=== PATIENT | female | born 2000 | race American Indian/Alaskan Native ===

== ENCOUNTER 2022-06-17 09:33 | Inpatient (IN) | payer SELFPAY ==
[2022-06-17] MEDS ORDERED: LACTATED RINGERS 2,000 ML ONE (11:20)
[2022-06-17] MEDS ORDERED: OXYTOCIN DRIP 60,000 MILLIUNITS/1,000 ML BAG IV ONE (11:20)
[2022-06-17] MEDS ORDERED: MINERAL OIL 30 ML ORAL LIQD PO PRN (11:57)
[2022-06-17] MEDS ORDERED: fentaNYL 100 MCG/2 ML INJ IV PRN (11:57)
[2022-06-17] MEDS ORDERED: ACETAMINOPHEN 325 MG TAB PO PRN ×2 (11:57→19:17)
[2022-06-17] MEDS ORDERED: METHYLERGONOVINE MALEATE 0.2 MG/ML VIAL IM PRN (11:57)
[2022-06-17] MEDS ORDERED: LIDOCAINE (2%) 20 MG/1 ML VIAL 20 ML MDV INFILTRATI ONE (11:57)
[2022-06-17] MEDS ORDERED: ePHEDrine SULFATE 50 MG/1 ML INJ IV PRN (11:57)
[2022-06-17] MEDS ORDERED: TERBUTALINE 1 MG/1 ML INJ SUB-Q PRN (11:57)
[2022-06-17] MEDS ORDERED: CARBOPROST TROMETHAMINE 250 MCG/1 ML INJ IM PRN (11:57)
[2022-06-17] MEDS ORDERED: OXYTOCIN 10 UNIT/1 ML INJ IM PRN (11:57)
[2022-06-17] MEDS ORDERED: AMPICILLIN/NS 2 GM/100 ML 2 GM/100 ML BAG IV ONE (11:57)
[2022-06-17] MEDS ORDERED: LOPERAMIDE 2 MG CAP PO PRN (11:57)
[2022-06-17] MEDS ORDERED: miSOPROStol 200 MCG TAB PR PRN (11:57)
[2022-06-17] MEDS ORDERED: BUTORPHANOL 2 MG/1 ML INJ IV PRN ×2 (11:57)
[2022-06-17] MEDS ORDERED: OXYTOCIN DRIP 30 UNITS/500 ML BAG IV SCH ×2 (12:00)
[2022-06-17] MEDS: LACTATED RINGERS 1,000 ML IV SCH (12:05)
[2022-06-17] MEDS: AMPICILLIN/NS 1 GM/50 ML 1 GM/50 ML BAG IV SCH ×2 (12:22→16:25)
[2022-06-17 12:39] LABS: Basophils % (Auto) 0.3 % (0.0-1.8); Eosinophils % (Auto) 0.2 % (0.0-4.3); Hematocrit 29.3 % (30.3-42.9); Hemoglobin 10.1 gm/dl (10.1-14.3); Lymphocytes # (Auto) 2.1 K/mm3 (1.2-5.4); Lymphocytes % (Auto) 22.4 % (13.4-35.0); Mean Corpuscular HGB Conc 35 % (30-34); Mean Corpuscular Volume 97 fl (79-97); Monocytes # (Auto) 0.7 K/mm3 (0.0-0.8); Monocytes % (Auto) 7.4 % (0.0-7.3); Platelet Count 155 K/mm3 (140-440); Red Blood Count 3.01 M/mm3 (3.65-5.03); Red Cell Distribution Width 12.5 % (13.2-15.2)
[2022-06-17 13:10] LABS: Bacteria,Urine 1+ /HPF (Negative); Hyaline Casts,Urine 1 /LPF; Mucus,Urine FEW /HPF
[2022-06-17 13:13] LABS: Bilirubin,Urine Negative (Negative); Blood,Urine Trace (Negative); Color,Urine Straw (Yellow); Protein,Urine <15 mg/dL mg/dL (Negative)
[2022-06-17 13:13] LABS: Amphetamine Screen,Urine Negative; Benzodiazepines Screen,Urine Negative; Cannabinoid Screen,Urine Negative; Cocaine Screen,Urine Negative; Methadone Screen,Urine Negative; Opiate Screen,Urine Negative
[2022-06-17 13:14] LABS: Urobilinogen,Urine < 2.0 mg/dL (<2.0)
--- NOTE | 2022-06-17 13:17 | History and Physical Report ---
History of Present Illness Date of examination: 06/17/22 Date of admission: 06/17/22 11:57 Chief complaint: Painful contractions. History of present illness: Primigravida. care in the [facility]. DEACON 06/20/22. Past History Past Medical History: asthma, deep vein thrombosis - Obstetrical History Expected Date of Delivery: 06/20/22 Actual Gestation: 39 Week(s) 4 Day(s) : 1 Medications and Allergies Allergies Allergy/AdvReac Type Severity Reaction Status Date / Time No Known Allergies Allergy Verified 06/17/22 12:15 Home Medications Medication Instructions Recorded Confirmed Last Taken Type Enoxaparin [Lovenox] 60 mg SQ Q12HR 06/17/22 06/17/22 1 Month Ago History ~05/18/22 Vit No.179/Iron/Folic 1 each PO DAILY 06/17/22 06/17/22 1 Month Ago History [ Tablet] ~05/18/22 Active Meds: Active Medications Acetaminophen (Acetaminophen 325 Mg Tab) 650 mg PO Q4H PRN PRN Reason: Pain, Mild (1-3) Butorphanol Tartrate (Butorphanol 2 Mg/1 Ml Inj) 1 mg IV Q2H PRN PRN Reason: Pain, Moderate(4-6) LABOR PAIN Butorphanol Tartrate (Butorphanol 2 Mg/1 Ml Inj) 2 mg IV Q1HR PRN PRN Reason: Labor Pain Last Admin: 06/17/22 12:33 Dose: 2 mg Carboprost Tromethamine (Carboprost Tromethamine 250 Mcg/1 Ml Inj) 250 mcg IM ONCE PRN PRN Reason: Uterine Bleeding Ephedrine Sulfate (Ephedrine Sulfate 50 Mg/1 Ml Inj) 10 mg IV Q2M PRN PRN Reason: Hypotension Fentanyl (Fentanyl 100 Mcg/2 Ml Inj) 100 mcg IV Q2H PRN PRN Reason: Pain,Severe (7-10) LABOR PAIN Oxytocin/Sodium Chloride (Pitocin/Ns 30 Unit/500ml) 30 units in 500 mls @ 2 mls/hr IV TITR KATHY; Protocol Lactated Ringer's (Lactated Ringers) 1,000 mls @ 125 mls/hr IV DIRECT KATHY Last Admin: 06/17/22 12:05 Dose: 125 mls/hr Oxytocin/Sodium Chloride (Pitocin/Ns 30 Unit/500ml) 30 units in 500 mls @ 40 mls/hr IV TITR KATHY; Protocol Ampicillin Sodium (Ampicillin/Ns 1 Gm/50 Ml) 1 gm in 50 mls @ 100 mls/hr IV Q4H KATHY; Protocol Last Admin: 06/17/22 12:22 Dose: Not Given Loperamide HCl (Loperamide 2 Mg Cap) 2 mg PO ONCE PRN PRN Reason: give with Hemabate Methylergonovine Maleate (Methylergonovine Maleate 0.2 Mg/Ml Vial) 0.2 mg IM ONCE PRN PRN Reason: Uterine Bleeding Mineral Oil (Mineral Oil 30 Ml Oral Liqd) 30 ml PO QHS PRN PRN Reason: Constipation Misoprostol (Misoprostol 200 Mcg Tab) 800 mcg WV ONCE PRN PRN Reason: Uterine Bleeding Oxytocin (Oxytocin 10 Unit/1 Ml Inj) 10 unit IM ONCE PRN PRN Reason: Uterine Bleeding Terbutaline Sulfate (Terbutaline 1 Mg/1 Ml Inj) 0.25 mg SUB-Q ONCE PRN PRN Reason: Hyperstimulation/Hypertonicity Review of Systems All systems: negative Genitourinary: contractions - Vital Signs Vital signs: Vital Signs Temp Pulse Resp BP Pulse Ox 98.6 F 81 18 126/82 99 06/17/22 09:48 06/17/22 09:48 06/17/22 09:48 06/17/22 09:48 06/17/22 09:48 Temp Pulse Resp BP Pulse Ox 98.5 F 82 18 144/92 99 06/17/22 12:50 06/17/22 13:11 06/17/22 12:50 06/17/22 11:28 06/17/22 13:11 - Physical Exam Breasts: Positive: deferred Lungs: Positive: Normal air movement Abdomen: Positive: normal appearance, distention Genitourinary (Female): Positive: normal external genitalia Vulva: both: normal Vagina: Positive: normal moisture Cervix: Negative: lesion, discharge Uterus: Positive: enlarged, normal contour Extremities: Positive: normal Deep Tendon Reflex Grade: Normal +2 - Obstetrical FHR: category 2 Cervical Dilatation: 7.5 (ARM done, IUPC, Scalp electrode placed.) Cervical Effacement Percentage: 100 station: 0+1 Results Result Diagrams: 06/17/22 11:57 Abnormal lab results 06/17/22 06/17/22 Range/Units 11:57 12:10 RBC 3.01 L (3.65-5.03) M/mm3 Hct 29.3 L (30.3-42.9) % MCH 34 H (28-32) pg MCHC 35 H (30-34) % RDW 12.5 L (13.2-15.2) % [place] % (Auto) 7.4 H (0.0-7.3) % U Epithel Cells (Auto) 15.0 H (0-13.0) /HPF All other labs normal. Assessment and Plan - Patient Problems (1) with 39 completed weeks gestation Current Visit: Yes Status: Acute (2) History of DVT (deep vein thrombosis) Current Visit: Yes Status: Acute Plan to address problem: For prophylaxis 6 hrs post (3) Active labor Current Visit: Yes Status: Acute Plan to address problem: Vag delivery possible.
[2022-06-17] MEDS ORDERED: SODIUM CHLORIDE 0.9% 500 ML 500 ML IV ONE ×2 (17:20→20:43)
[2022-06-17] MEDS ORDERED: SODIUM CHLORIDE 0.9% 1000 ML 0 ML ONE (17:36)
[2022-06-17 18:18] LABS: Albumin 2.2 g/dL (3.9-5); Blood Urea Nitrogen 7 mg/dL (7-17); Hemolysis Index 4
[2022-06-17 18:21] LABS: Alanine Aminotransferase < 5 units/L (7-56); BUN/Creatinine Ratio 10
[2022-06-17 18:32] LABS: INR 1.23 (0.87-1.13)
[2022-06-17 18:33] LABS: Partial Thromboplastin Time 28.3 Sec. (24.2-36.6)
--- NOTE | 2022-06-17 19:16 | Procedure Note ---
OB Delivery Note - Delivery Date of Delivery: 06/17/22 Surgeon: LENARD VARGAS Estimated blood loss: other (1500) - Vaginal Delivery presentation: vertex Delivery position: OA Intrapartum events: hemorrhage Delivery induction: none Delivery augmentation: rupture of membranes, pitocin Delivery monitor: external FHT, external uterine, internal FHT, internal uterine Route of delivery: Delivery placenta: spontaneous Delivery cord: 3 umbilical vessels Episiotomy: none Delivery laceration: 2nd degree (midline) Delivery repair: vicryl Anesthesia: intravenous - Infant A at 1 minute: 8 at 5 minutes: 9 Infant Gender: Female
[2022-06-17] MEDS ORDERED: PROMETHAZINE 25 MG RECT SUPP PR PRN (19:17)
[2022-06-17] MEDS ORDERED: MAGNESIUM HYDROXIDE (MOM) ORAL LIQD UDC PO PRN (19:17)
[2022-06-17] MEDS ORDERED: PROMETHAZINE 25 MG TAB PO PRN (19:17)
[2022-06-17] MEDS ORDERED: ONDANSETRON 4 MG/2 ML INJ IV PRN (19:17)
[2022-06-17] MEDS ORDERED: LANOLIN/ZINC/DIMETHICONE (LANSINOH) 7 GM TP PRN (19:17)
[2022-06-17] MEDS ORDERED: diphenhydrAMINE 25 MG CAP PO PRN (19:17)
[2022-06-17] MEDS ORDERED: KETOROLAC 30 MG/1 ML INJ IV PRN (19:17)
[2022-06-17 19:27] LABS: Basophils % (Auto) 0.2 % (0.0-1.8); Lymphocytes # (Auto) 1.3 K/mm3 (1.2-5.4); Mean Corpuscular HGB Conc 33 % (30-34); Mean Corpuscular Volume 101 fl (79-97); Monocytes # (Auto) 0.3 K/mm3 (0.0-0.8); Monocytes % (Auto) 3.8 % (0.0-7.3); Platelet Count 143 K/mm3 (140-440); Red Blood Count 1.73 M/mm3 (3.65-5.03); Red Cell Distribution Width 12.6 % (13.2-15.2)
[2022-06-17 19:48] LABS: Hemoglobin 5.9 gm/dl (10.1-14.3)
[2022-06-17 19:52] LABS: Hematocrit 17.5 % (30.3-42.9)
[2022-06-17] MEDS ORDERED: MORPHINE 2 MG/1 ML INJ ONE (20:08)
[2022-06-17] MEDS ORDERED: VERAPAMIL 5 MG/2 ML INJ ONE (21:51)
[2022-06-17] MEDS ORDERED: LIDOCAINE 2%/EPINEPHRINE 1:200,000 VIAL (20 ML) INFILTRATI ONE (21:51)
[2022-06-17] MEDS ORDERED: SODIUM CHLORIDE 0.9% 1000 ML 2,000 ML ONE (21:51)
[2022-06-17] MEDS ORDERED: NITROGLYCERIN SYRINGE 3 ML ONE (21:52)
[2022-06-17] MEDS ORDERED: ceFAZolin/Water 2 GM/20 ML 2 GM/20 ML SYRINGE IV ONE (21:52)
[2022-06-17] MEDS ORDERED: SODIUM CHLORIDE 0.9% 1000 ML 1,000 ML ONE (21:54)
[2022-06-17] MEDS ORDERED: PHENYLEPHRINE/NS 1,000 MCG/10 ML SYRINGE (OR USE) IV ONE (22:03)
[2022-06-17] MEDS ORDERED: fentaNYL 100 MCG/2 ML INJ ONE (22:04)
[2022-06-17] MEDS ORDERED: MIDAZOLAM 2 MG/2 ML INJ ONE (22:04)
[2022-06-17] MEDS ORDERED: KETAMINE/STERILE WATER 50 MG/ML SYRINGE ONE (22:04)
[2022-06-17] MEDS ORDERED: ePHEDrine SULFATE 50 MG/1 ML INJ ONE (22:04)
--- NOTE | 2022-06-17 22:41 | Event Note ---
Date: 06/17/22 3-4 hours post and after the first unit of prbc was transfused, patient started bleeding actively again. help was summoned from the [facility], available L&D staff, ICU, interventional radiology, composing room supervisor Reexamination of the lower genital tract was done. Medina's cath was in place. manual pressure on the uterus was on. hemabate was was given. Pitocin was running. Massive transfusion protocol was activated. Gil's balloon was placed Dr. Callahan arrived and patient was moved for interventional radiology treatment.
[2022-06-17 22:59] LABS: Hematocrit 42.5 % (30.3-42.9); Hemoglobin 14.3 gm/dl (10.1-14.3); Mean Corpuscular HGB Conc 34 % (30-34); Mean Corpuscular Volume 88 fl (79-97); Red Blood Count 4.84 M/mm3 (3.65-5.03); Red Cell Distribution Width 16.4 % (13.2-15.2)
[2022-06-17 23:00] LABS: Platelet Count 64 K/mm3 (140-440)
--- NOTE | 2022-06-17 23:00 | Post Operative Note ---
Date of procedure: 06/17/22 Pre-op diagnosis: Uterine artery bleeding Post-op diagnosis: same Procedure: 1. Ultrasound guided access of the left radial artery 2. Selection of the abdominal aorta with angiography 3. Selection of the left internal iliac artery with angiography 4. Selection of the left uterine artery with angiography 5. Gelfoam embolization of the left uterine artery 6. Gelfoam embolization of the left internal pudendal artery 7. Selection of the right internal iliac artery with angiography 8. Selection of the right uterine artery with angiography 9. Gelfoam embolization of the right uterine artery with angiography 10. Selection of the left anterior division of the left internal iliac artery. 11. Selection of the left internal pudendal artery 12. Gelfoam embolization of the left internal pudendal artery 13. Gelfoam embolization of the left anterior division of the left internal iliac artery Anesthesia: MAC Surgeon: FRANCE RITTER Estimated blood loss: minimal Condition: stable Disposition: ICU
--- NOTE | 2022-06-17 23:03 | Consultation ---
History of Present Illness - Reason for Consult Consult date: 06/17/22 Uterine artery bleeding Requesting physician: LENARD VARGAS - History of Present Illness 22-year-old female prima gravid with care in the [facility] with history of asthma and DVT with prior Lovenox administration last taken 1 month ago per medical record who had a vaginal delivery with 1500 mL of blood loss after vaginal delivery who was stable for multiple hours and subsequently had 500 to 1000 mL of blood loss with fundal massage performed and the Bakiri balloon placed. Vascular consulted and patient was brought to angiography for uterine artery embolization and angiography. Risk, benefits, and alternatives discussed with the patient's aunt. The patient was brought emergently to the [facility]. Past History Past Medical History: other (Asthma, DVT) Past Surgical History: Other (Vaginal ) Social history: no significant social history Family history: no significant family history Medications and Allergies Allergies Allergy/AdvReac Type Severity Reaction Status Date / Time No Known Allergies Allergy Verified 06/17/22 12:15 Home Medications Medication Instructions Recorded Confirmed Last Taken Type Enoxaparin [Lovenox] 60 mg SQ Q12HR 06/17/22 06/17/22 1 Month Ago History ~05/18/22 Vit No.179/Iron/Folic 1 each PO DAILY 06/17/22 06/17/22 1 Month Ago History [ Tablet] ~05/18/22 Active Meds: Active Medications Acetaminophen (Acetaminophen 325 Mg Tab) 650 mg PO Q4H PRN PRN Reason: Pain MILD(1-3)/Fever >100.5/SMITH Hydrocodone Bitart/Acetaminophen (Hydrocodone/Acetaminophen 5-325 Mg Tab) 2 each PO Q6H PRN PRN Reason: Pain, Moderate (4-6) Bisacodyl (Bisacodyl 10 Mg Rect Supp) 10 mg OR BID PRN PRN Reason: Constipation Butorphanol Tartrate (Butorphanol 2 Mg/1 Ml Inj) 1 mg IV Q2H PRN PRN Reason: Pain, Moderate(4-6) LABOR PAIN Butorphanol Tartrate (Butorphanol 2 Mg/1 Ml Inj) 2 mg IV Q1HR PRN PRN Reason: Labor Pain Last Admin: 06/17/22 12:33 Dose: 2 mg Carboprost Tromethamine (Carboprost Tromethamine 250 Mcg/1 Ml Inj) 250 mcg IM ONCE PRN PRN Reason: Uterine Bleeding Diphenhydramine HCl (Diphenhydramine 25 Mg Cap) 25 mg PO Q6H PRN PRN Reason: Itching Ephedrine Sulfate (Ephedrine Sulfate 50 Mg/1 Ml Inj) 10 mg IV Q2M PRN PRN Reason: Hypotension Last Admin: 06/17/22 17:22 Dose: 10 mg Fentanyl (Fentanyl 100 Mcg/2 Ml Inj) 100 mcg IV Q2H PRN PRN Reason: Pain,Severe (7-10) LABOR PAIN Last Admin: 06/17/22 15:05 Dose: 100 mcg Oxytocin/Sodium Chloride (Pitocin/Ns 30 Unit/500ml) 30 units in 500 mls @ 2 mls/hr IV TITR KATHY; Protocol Lactated Ringer's (Lactated Ringers) 1,000 mls @ 125 mls/hr IV DIRECT KATHY Last Admin: 06/17/22 12:05 Dose: 125 mls/hr Oxytocin/Sodium Chloride (Pitocin/Ns 30 Unit/500ml) 30 units in 500 mls @ 40 mls/hr IV TITR KATHY; Protocol Ampicillin Sodium (Ampicillin/Ns 1 Gm/50 Ml) 1 gm in 50 mls @ 100 mls/hr IV Q4H KATHY; Protocol Last Admin: 06/17/22 16:25 Dose: 100 mls/hr Ketorolac Tromethamine (Ketorolac 30 Mg/1 Ml Inj) 30 mg IV Q6H PRN PRN Reason: Pain, Moderate (4-6) Stop: 06/22/22 19:16 Loperamide HCl (Loperamide 2 Mg Cap) 2 mg PO ONCE PRN PRN Reason: give with Hemabate Magnesium Hydroxide (Magnesium Hydroxide (Mom) Oral Liqd Udc) 30 ml PO HS PRN PRN Reason: Constipation Mineral Oil (Mineral Oil 30 Ml Oral Liqd) 30 ml PO QHS PRN PRN Reason: Constipation Multi-Ingredient Ointment (Lanolin/Zinc/Dimethicone (Lansinoh) 7 Gm) 1 applic TP PRN PRN PRN Reason: Sore Nipples Ondansetron HCl (Ondansetron 4 Mg/2 Ml Inj) 4 mg IV Q8H PRN PRN Reason: Nausea And Vomiting Oxytocin (Oxytocin 10 Unit/1 Ml Inj) 10 unit IM ONCE PRN PRN Reason: Uterine Bleeding Promethazine HCl (Promethazine 25 Mg Rect Supp) 25 mg OR Q6H PRN PRN Reason: Nausea And Vomiting Promethazine HCl (Promethazine 25 Mg Tab) 25 mg PO Q6H PRN PRN Reason: Nausea And Vomiting Sodium Chloride (Sodium Chloride 0.9% 10 Ml Flush Syringe) 10 ml IV PRN NR Stop: 06/27/22 23:59 Terbutaline Sulfate (Terbutaline 1 Mg/1 Ml Inj) 0.25 mg SUB-Q ONCE PRN PRN Reason: Hyperstimulation/Hypertonicity Witch Martha/Glycerin (Witch Martha/ Glycerin Pad) 1 each TP PRN PRN PRN Reason: Hemorrhoid/cleansing/soothing Review of Systems All systems: negative (see HPI) Exam - Constitutional Vitals: Temp Pulse Resp BP Pulse Ox 99.5 F 105 H 18 145/67 100 06/17/22 20:36 06/17/22 21:37 06/17/22 20:36 06/17/22 21:25 06/17/22 21:37 General appearance: Present: mild distress (Actively receiving blood) - EENT Eyes: Present: EOM intact ENT: hearing intact - Respiratory Respiratory effort: normal - Extremities Extremities: normal temperature, normal color - Abdominal Female genitourinary: Present: other (Bacteria balloon in place,) - Psychiatric Psychiatric: appropriate mood/affect, cooperative Results - Labs CBC & Chem 7: 06/17/22 Unknown 06/17/22 17:40 Labs: Abnormal lab results 06/17/22 06/17/22 06/17/22 Range/Units 11:40 11:57 12:10 RBC 3.01 L (3.65-5.03) M/mm3 Hgb (10.1-14.3) gm/dl Hct 29.3 L (30.3-42.9) % MCV (79-97) fl MCH 34 H (28-32) pg MCHC 35 H (30-34) % RDW 12.5 L (13.2-15.2) % [place] % (Auto) 7.4 H (0.0-7.3) % Seg Neutrophils % (40.0-70.0) % PT (12.2-14.9) Sec. INR (0.87-1.13) Fibrinogen (211-480) mg/dl D-Dimer (0-234) ng/mlDDU Sodium (137-145) mmol/L Potassium (3.6-5.0) mmol/L Carbon Dioxide (22-30) mmol/L Glucose (65-100) mg/dL Calcium (8.4-10.2) mg/dL ALT (7-56) units/L Total Protein (6.3-8.2) g/dL Albumin (3.9-5) g/dL Urine pH 8.0 H (5.0-7.0) Urine WBC (Auto) 14.0 H (0.0-6.0) /HPF U Epithel Cells (Auto) 15.0 H (0-13.0) /HPF Crossmatch See Detail 06/17/22 06/17/22 06/17/22 Range/Units 17:40 17:40 Unknown RBC 1.73 L (3.65-5.03) M/mm3 Hgb 5.9 L* D (10.1-14.3) gm/dl Hct 17.5 L* D (30.3-42.9) % MCV 101 H (79-97) fl MCH 34 H (28-32) pg MCHC (30-34) % RDW 12.6 L (13.2-15.2) % [place] % (Auto) (0.0-7.3) % Seg Neutrophils % 82.0 H (40.0-70.0) % PT 17.0 H (12.2-14.9) Sec. INR 1.23 H (0.87-1.13) Fibrinogen 150 L (211-480) mg/dl D-Dimer 7013.41 H (0-234) ng/mlDDU Sodium 133 L (137-145) mmol/L Potassium 3.3 L (3.6-5.0) mmol/L Carbon Dioxide 14 L (22-30) mmol/L Glucose 120 H (65-100) mg/dL Calcium 7.0 L (8.4-10.2) mg/dL ALT < 5 L (7-56) units/L Total Protein 4.0 L (6.3-8.2) g/dL Albumin 2.2 L (3.9-5) g/dL Urine pH (5.0-7.0) Urine WBC (Auto) (0.0-6.0) /HPF U Epithel Cells (Auto) (0-13.0) /HPF Crossmatch Assessment and Plan 22-year-old female with hemorrhage after vaginal delivery. Activating massive transfusion protocol. Bacterial balloon in place. Patient will be brought emergently to the [facility] for further evaluation with angiography and probable embolization of the bilateral uterine arteries. Risk, benefits, and alternatives discussed with the patient and patient's aunt at bedside. Alternative is hysterectomy. Patient and aunt understands and agrees with plan.
[2022-06-17 23:07] LABS: INR 1.24 (0.87-1.13)
[2022-06-17 23:08] LABS: Partial Thromboplastin Time 28.4 Sec. (24.2-36.6)
--- NOTE | 2022-06-17 23:11 | Operative Report ---
Operative Report Operative Report: EXAM: 1. Ultrasound guided access of the left radial artery 2. Selection of the abdominal aorta with angiography 3. Selection of the left internal iliac artery with angiography 4. Selection of the left internal pudendal artery with angiography 5. Gelfoam embolization of the left internal pudendal artery 6. Selection of the left uterine artery with angiography 7. Gelfoam embolization of the left uterine artery 8. Selection of the right internal iliac artery with angiography 9. Selection of the right uterine artery with angiography 10. Gelfoam embolization of the right uterine artery with angiography 11. Selection of the left anterior division of the left internal iliac artery. 12. Selection of the left internal pudendal artery 13. Gelfoam embolization of the left internal pudendal artery 14. Gelfoam embolization of the left anterior division of the left internal iliac artery DATE: 06/17/2022 MOTHERS HELPER: FRANCE RITTER MD INDICATION: hemorrhage status vaginal delivery with massive transfusion protocol activated and Bakiri balloon placement. MEDICATIONS: Please see nursing report for full details. DEVICES: Gelfoam slurry CONTRAST: Please see Courtesy Driver report for full details PROCEDURE: The risks, benefits, and alternatives were discussed with the patient; written informed consent was obtained. The left wrist was prepped and draped in sterile fashion. Ultrasound was used to evaluate the left radial artery which was patent. The left radial artery was then accessed with a 21-gauge micropuncture needle and a 0.018 inch wire was passed into the radial artery. Needle was exchanged for a 4/5 glide sheath slender and a radial cocktail was administered without heparin. 0.035 inch Bentson wire and angled Glidecath were then passed into the descending thoracic aorta and abdominal aorta. The left internal iliac artery was then selected and digital subtraction angiography was performed demonstrating patency of the left internal iliac artery with a left uterine artery. There is extravasation from a branch of the left internal pudendal artery adjacent to the cervix or lower uterine segment, but above the pubic symphysis and therefore intra-abdominal. Given history, suspect arterial trauma during passage during vaginal delivery. The left internal pudendal artery was selected and digital subtraction angiography was performed demonstrating extravasation from the distal vessels. I considered exchanging the 150 cm glidecath for a 125 cm MPA catheter and using a microcatheter to perform more selective embolization of the internal pudendal artery, but in the interest of stopping the extravasation as soon as possible to prevent exanguination I declined to perform this exchange. From a proximal position in the internal pudendal artery, I performed Gelfoam embolization until there was cessation of flow into the distal internal pudendal artery. Digital subtraction angiography was performed confirming cessation of extravasation and flow within this portion of the vessel. At this point, I had the Bakiri balloon deflated in order to optimize embolization. The left uterine artery was then selected and digital subtraction angiography was performed confirming position. Gelfoam slurry was then passed into the catheter and used to perform embolization until there was stasis of flow in the left uterine artery. Catheter was retracted into the left internal iliac artery and digital subtraction angiography was performed confirming stasis of flow in the left uterine artery and distal branches of the left internal pudendal artery. The right internal iliac artery was selected and digital subtraction angiography was performed demonstrating a normal branching pattern with a right uterine artery. No extravasation or pseudoaneurysm was visualized at this time. The right uterine artery was then selected and digital subtraction angiography was performed confirming position in this vessel. Gelfoam slurry was then passed into the catheter and used to perform embolization until there was stasis of flow in the uterine artery. The right internal iliac artery was selected and digital subtraction angiography was performed demonstrating stasis of flow in the right uterine artery. I then reselected the left internal iliac artery as I wanted to ensure hemostasis from the left internal pudendal artery. Digital subtraction angiography demonstrated further extravasation from the left distal internal pudendal artery. I then selected the left internal pudendal artery and perform Gelfoam embolization again. I then continued embolization in order to embolize the entire left internal pudendal artery and a portion of the anterior division of the internal iliac artery. Digital subtraction angiography was performed demonstrating no further extravasation. There is no pseudoaneurysm. There is now stasis of flow in the anterior division of the left internal iliac artery including the internal pudendal artery. I then allowed 10 minutes to transpire and performed intermittent angiography during that period of time to ensure no reopening of the internal pudendal artery. During this time, there was no reopening of the internal pudendal artery and there was no extravasation or pseudoaneurysm. The anterior division of the left internal iliac artery was occluded including the internal pudendal artery. At this time, all wires, and catheters were removed. The sheath was aspirated and blood was obtained. Nitroglycerin was injected into sheath and subsequently the radial artery. Afterwards, the sheath was removed and TR band was applied to the left radial access site. The patient tolerated the procedure well. No immediate postprocedural complications. FINDINGS: Please see procedure note above. IMPRESSION: Successful embolization of the bilateral uterine arteries for hemorrhage. Successful embolization of the left internal pudendal artery and anterior division of the left internal iliac artery.
[2022-06-17 23:21] LABS: Alanine Aminotransferase 6 units/L (7-56); Albumin 2.4 g/dL (3.9-5); BUN/Creatinine Ratio 10; Blood Urea Nitrogen 9 mg/dL (7-17); Calcium 6.2 mg/dL (8.4-10.2); Hemolysis Index 12
--- NOTE | 2022-06-17 23:23 | Event Note ---
Date: 06/17/22 Status post Gelfoam embolization of the bilateral uterine arteries and left internal pudendal artery and anterior division of the internal iliac artery. The patient had extravasation from the left lower uterine segment from vaginal/cervical branches, likely from vaginal delivery. Recommend serial H&H, and monitoring and treating hemoglobin. Recommend against any prophylactic anticoagulation at this time. Recommend SCDs instead.
--- NOTE | 2022-06-17 23:46 | Anesthesia Day of Surgery ---
Anesthesia Day of Surgery - Day of Surgery Patient Examined: Yes Patient H&P Reviewed: Yes Patient is NPO: Yes
--- NOTE | 2022-06-17 23:48 | Anesthesia Consultation ---
Anesthesia Consult and Med Hx Date of service: 06/17/22 - Airway Anesthetic Teeth Evaluation: Poor ROM Head & Neck: Adequate Mental/Hyoid Distance: Adequate Mallampati Class: Class II Intubation Access Assessment: Probably Good - Pulmonary Exam CTA: Yes - Cardiac Exam Cardiac Exam: RRR - Pre-Operative Health Status ASA Pre-Surgery Classification: ASA3, Emergency Proposed Anesthetic Plan: MAC - Pre-Anesthesia Comment Pre-Anesthesia Comments: hx of DVT's stop blood thinners - Pulmonary Hx Smoking: No Hx Asthma: Yes (CHILDHOOD) - Cardiovascular System Hx Hypertension: No - Central Nervous System Hx Seizures: No Hx Psychiatric Problems: No - Endocrine Hx Renal Disease: No Hx Hypothyroidism: No Hx Hyperthyroidism: No - Hematic Hx Anemia: Yes Hx Sickle Cell Disease: No - Other Systems Hx Alcohol Use: Yes Hx Substance Use: No Hx Obesity: No
[2022-06-18] MEDS ORDERED: HYDROmorphone 1 MG/1 ML INJ IV PRN (00:25)
[2022-06-18] MEDS ORDERED: ONDANSETRON 4 MG/2 ML INJ IV PRN ×2 (00:28→00:44)
[2022-06-18] MEDS: LACTATED RINGERS 1,000 ML IV SCH (01:11)
[2022-06-18 01:17] LABS: Band Neutrophils # (Manual) 0.8 K/mm3; Basophils % (Manual) 0 % (0.0-1.8); Eosinophils % (Manual) 0 % (0.0-4.3); Platelet Estimate Appears Decreased; RBC Morphology Normal; Total Cells Counted 100
[2022-06-18] MEDS ORDERED: SODIUM CHLORIDE 0.9% 1000 ML 1,000 ML IV SCH (04:00)
[2022-06-18 06:20] LABS: Basophils % (Auto) 0.2 % (0.0-1.8); Hematocrit 34.4 % (30.3-42.9); Hemoglobin 11.3 gm/dl (10.1-14.3); Lymphocytes # (Auto) 1.4 K/mm3 (1.2-5.4); Lymphocytes % (Auto) 9.8 % (13.4-35.0); Mean Corpuscular HGB Conc 33 % (30-34); Mean Corpuscular Volume 88 fl (79-97); Monocytes # (Auto) 0.9 K/mm3 (0.0-0.8); Monocytes % (Auto) 5.9 % (0.0-7.3); Red Blood Count 3.91 M/mm3 (3.65-5.03); Red Cell Distribution Width 15.9 % (13.2-15.2)
[2022-06-18 06:21] LABS: Platelet Count 66 K/mm3 (140-440)
[2022-06-18] MEDS: HYDROcodone/ACETAMINOPHEN 5-325 MG TAB PO PRN ×2 (06:24→15:45)
[2022-06-18 06:35] LABS: Alanine Aminotransferase 8 units/L (7-56); Albumin 2.8 g/dL (3.9-5); BUN/Creatinine Ratio 8; Blood Urea Nitrogen 8 mg/dL (7-17); Hemolysis Index 8
[2022-06-18 06:36] LABS: INR 1.04 (0.87-1.13)
--- NOTE | 2022-06-18 06:39 | Consultation ---
History of Present Illness - Reason for Consult Consult date: 06/17/22 Medical management Requesting physician: LENARD DRUMMOND - History of Present Illness Consulted for history of hemorrhage. Patient was transfused about 4 units of packed red blood cells. Patient apparently lost 2020 normal blood as per [employer]. Interventional radiology was advised toto Dr Drummond for possible uterine artery embolization. Coags were obtained. [employer] was informed. Patient was transfused. Units to 10 units of packed red blood cells Test and platelets as necessary. Slightly hypertensive. Tachycardic at 120/min. No diaphoresis. No chest pain. Patient was transferred from L[facility] to [facility] for angiography and embolization. And then transferred back to ICU . Transfer was coordinated by hospitalist service. No significant past medical history. Past History Past Medical History: No medical history, other (Asthma, DVT) Past Surgical History: Other (Vaginal ) Social history: no significant social history Family history: no significant family history Medications and Allergies Allergies Allergy/AdvReac Type Severity Reaction Status Date / Time No Known Allergies Allergy Verified 06/17/22 12:15 Home Medications Medication Instructions Recorded Confirmed Last Taken Type Enoxaparin [Lovenox] 60 mg SQ Q12HR 06/17/22 06/17/22 1 Month Ago History ~05/18/22 Vit No.179/Iron/Folic 1 each PO DAILY 06/17/22 06/17/22 1 Month Ago History [ Tablet] ~05/18/22 Active Meds: Active Medications Acetaminophen (Acetaminophen 325 Mg Tab) 650 mg PO Q4H PRN PRN Reason: Pain MILD(1-3)/Fever >100.5/SMITH Hydrocodone Bitart/Acetaminophen (Hydrocodone/Acetaminophen 5-325 Mg Tab) 2 each PO Q6H PRN PRN Reason: Pain, Moderate (4-6) Last Admin: 06/18/22 06:24 Dose: 2 each Bisacodyl (Bisacodyl 10 Mg Rect Supp) 10 mg ME BID PRN PRN Reason: Constipation Carboprost Tromethamine (Carboprost Tromethamine 250 Mcg/1 Ml Inj) 250 mcg IM ONCE PRN PRN Reason: Uterine Bleeding Diphenhydramine HCl (Diphenhydramine 25 Mg Cap) 25 mg PO Q6H PRN PRN Reason: Itching Ephedrine Sulfate (Ephedrine Sulfate 50 Mg/1 Ml Inj) 10 mg IV Q2M PRN PRN Reason: Hypotension Last Admin: 06/17/22 17:22 Dose: 10 mg Hydromorphone HCl (Hydromorphone 1 Mg/1 Ml Inj) 0.5 mg IV Q2H PRN PRN Reason: Pain , Severe (7-10) Last Admin: 06/18/22 01:02 Dose: 0.5 mg Oxytocin/Sodium Chloride (Pitocin/Ns 30 Unit/500ml) 30 units in 500 mls @ 2 mls/hr IV TITR KATHY; Protocol Lactated Ringer's (Lactated Ringers) 1,000 mls @ 125 mls/hr IV DIRECT KATHY Last Admin: 06/18/22 01:11 Dose: 125 mls/hr Oxytocin/Sodium Chloride (Pitocin/Ns 30 Unit/500ml) 30 units in 500 mls @ 40 mls/hr IV TITR KATHY; Protocol Levofloxacin/Dextrose (Levaquin 500mg/100ml) 500 mg in 100 mls @ 100 mls/hr IV Q24HR KATHY; Protocol Last Admin: 06/18/22 01:14 Dose: 100 mls/hr Sodium Chloride (Nacl 0.9% 1000 Ml) 1,000 mls @ 125 mls/hr IV DIRECT KATHY Ketorolac Tromethamine (Ketorolac 30 Mg/1 Ml Inj) 30 mg IV Q6H PRN PRN Reason: Pain, Moderate (4-6) Stop: 06/22/22 19:16 Loperamide HCl (Loperamide 2 Mg Cap) 2 mg PO ONCE PRN PRN Reason: give with Hemabate Magnesium Hydroxide (Magnesium Hydroxide (Mom) Oral Liqd Udc) 30 ml PO HS PRN PRN Reason: Constipation Mineral Oil (Mineral Oil 30 Ml Oral Liqd) 30 ml PO QHS PRN PRN Reason: Constipation Multi-Ingredient Ointment (Lanolin/Zinc/Dimethicone (Lansinoh) 7 Gm) 1 applic TP PRN PRN PRN Reason: Sore Nipples Ondansetron HCl (Ondansetron 4 Mg/2 Ml Inj) 4 mg IV Q4H PRN PRN Reason: Nausea And Vomiting Ondansetron HCl (Ondansetron 4 Mg/2 Ml Inj) 4 mg IV Q4H PRN PRN Reason: Nausea And Vomiting Oxytocin (Oxytocin 10 Unit/1 Ml Inj) 10 unit IM ONCE PRN PRN Reason: Uterine Bleeding Promethazine HCl (Promethazine 25 Mg Rect Supp) 25 mg ME Q6H PRN PRN Reason: Nausea And Vomiting Promethazine HCl (Promethazine 25 Mg Tab) 25 mg PO Q6H PRN PRN Reason: Nausea And Vomiting Sodium Chloride (Sodium Chloride 0.9% 10 Ml Flush Syringe) 10 ml IV PRN NR Stop: 06/27/22 23:59 Terbutaline Sulfate (Terbutaline 1 Mg/1 Ml Inj) 0.25 mg SUB-Q ONCE PRN PRN Reason: Hyperstimulation/Hypertonicity Witch Martha/Glycerin (Witch Martha/ Glycerin Pad) 1 each TP PRN PRN PRN Reason: Hemorrhoid/cleansing/soothing Review of Systems All systems: negative Breasts: deferred Genitourinary Female: abnormal vaginal bleeding (Profuse hemorrhage resulting in borderline hypotension and massive blood loss) Exam - Constitutional Vitals: Temp Pulse Resp BP Pulse Ox 97.4 F L 110 H 12 130/84 100 06/18/22 01:21 06/18/22 06:00 06/18/22 06:00 06/18/22 06:00 06/18/22 06:00 General appearance: Present: mild distress, well-nourished - EENT Eyes: Present: PERRL ENT: hearing intact, clear oral mucosa, other (Pale mucous membranes) - Neck Neck: Present: supple, normal ROM - Respiratory Respiratory effort: normal Respiratory: bilateral: CTA - Cardiovascular Heart Sounds: Present: S1 & S2. Absent: rub, click - Extremities Extremities: pulses symmetrical, No edema Peripheral Pulses: within normal limits - Abdominal General gastrointestinal: Present: soft, non-tender, non-distended, normal bowel sounds Female genitourinary: Present: normal - Integumentary Integumentary: Present: clear, warm, dry - Musculoskeletal Musculoskeletal: gait normal, strength equal bilaterally - Psychiatric Psychiatric: appropriate mood/affect, intact judgment & insight - Neurologic Neurologic: CNII-XII intact, moves all extremities Results - Labs CBC & Chem 7: 06/18/22 05:58 06/18/22 05:58 Labs: Abnormal lab results 06/17/22 06/17/22 06/17/22 Range/Units 11:40 11:57 12:10 WBC (4.5-11.0) K/mm3 RBC 3.01 L (3.65-5.03) M/mm3 Hgb (10.1-14.3) gm/dl Hct 29.3 L (30.3-42.9) % MCV (79-97) fl MCH 34 H (28-32) pg MCHC 35 H (30-34) % RDW 12.5 L (13.2-15.2) % Plt Count (140-440) K/mm3 Lymph % (Auto) (13.4-35.0) % [place] % (Auto) 7.4 H (0.0-7.3) % [place] # (Auto) (0.0-0.8) K/mm3 Seg Neutrophils % (40.0-70.0) % Seg Neuts % (Manual) (40.0-70.0) % Lymphocytes % (Manual) (13.4-35.0) % Seg Neutrophils # (1.8-7.7) K/mm3 Seg Neutrophils # Man (1.8-7.7) K/mm3 Lymphocytes # (Manual) (1.2-5.4) K/mm3 PT (12.2-14.9) Sec. INR (0.87-1.13) Fibrinogen (211-480) mg/dl D-Dimer (0-234) ng/mlDDU Sodium (137-145) mmol/L Potassium (3.6-5.0) mmol/L Carbon Dioxide (22-30) mmol/L Glucose (65-100) mg/dL Calcium (8.4-10.2) mg/dL ALT (7-56) units/L Total Protein (6.3-8.2) g/dL Albumin (3.9-5) g/dL Urine pH 8.0 H (5.0-7.0) Urine WBC (Auto) 14.0 H (0.0-6.0) /HPF U Epithel Cells (Auto) 15.0 H (0-13.0) /HPF Crossmatch See Detail 06/17/22 06/17/22 06/17/22 Range/Units 17:40 17:40 22:48 WBC (4.5-11.0) K/mm3 RBC (3.65-5.03) M/mm3 Hgb (10.1-14.3) gm/dl Hct (30.3-42.9) % MCV (79-97) fl MCH (28-32) pg MCHC (30-34) % RDW (13.2-15.2) % Plt Count (140-440) K/mm3 Lymph % (Auto) (13.4-35.0) % [place] % (Auto) (0.0-7.3) % [place] # (Auto) (0.0-0.8) K/mm3 Seg Neutrophils % (40.0-70.0) % Seg Neuts % (Manual) (40.0-70.0) % Lymphocytes % (Manual) (13.4-35.0) % Seg Neutrophils # (1.8-7.7) K/mm3 Seg Neutrophils # Man (1.8-7.7) K/mm3 Lymphocytes # (Manual) (1.2-5.4) K/mm3 PT 17.0 H 17.1 H (12.2-14.9) Sec. INR 1.23 H 1.24 H (0.87-1.13) Fibrinogen 150 L 135 L* (211-480) mg/dl D-Dimer 7013.41 H (0-234) ng/mlDDU Sodium 133 L (137-145) mmol/L Potassium 3.3 L (3.6-5.0) mmol/L Carbon Dioxide 14 L (22-30) mmol/L Glucose 120 H (65-100) mg/dL Calcium 7.0 L (8.4-10.2) mg/dL ALT < 5 L (7-56) units/L Total Protein 4.0 L (6.3-8.2) g/dL Albumin 2.2 L (3.9-5) g/dL Urine pH (5.0-7.0) Urine WBC (Auto) (0.0-6.0) /HPF U Epithel Cells (Auto) (0-13.0) /HPF Crossmatch 06/17/22 06/17/22 06/17/22 Range/Units 22:48 22:48 Unknown WBC 19.0 H (4.5-11.0) K/mm3 RBC 1.73 L (3.65-5.03) M/mm3 Hgb 5.9 L* D (10.1-14.3) gm/dl Hct 17.5 L* D (30.3-42.9) % MCV 101 H (79-97) fl MCH 34 H (28-32) pg MCHC (30-34) % RDW 16.4 H 12.6 L (13.2-15.2) % Plt Count 64 L (140-440) K/mm3 Lymph % (Auto) (13.4-35.0) % [place] % (Auto) (0.0-7.3) % [place] # (Auto) (0.0-0.8) K/mm3 Seg Neutrophils % 82.0 H (40.0-70.0) % Seg Neuts % (Manual) 89.0 H (40.0-70.0) % Lymphocytes % (Manual) 3.0 L (13.4-35.0) % Seg Neutrophils # (1.8-7.7) K/mm3 Seg Neutrophils # Man 16.9 H (1.8-7.7) K/mm3 Lymphocytes # (Manual) 0.6 L (1.2-5.4) K/mm3 PT (12.2-14.9) Sec. INR (0.87-1.13) Fibrinogen (211-480) mg/dl D-Dimer (0-234) ng/mlDDU Sodium 133 L (137-145) mmol/L Potassium (3.6-5.0) mmol/L Carbon Dioxide 14 L (22-30) mmol/L Glucose 184 H (65-100) mg/dL Calcium 6.2 L (8.4-10.2) mg/dL ALT 6 L (7-56) units/L Total Protein 3.8 L (6.3-8.2) g/dL Albumin 2.4 L (3.9-5) g/dL Urine pH (5.0-7.0) Urine WBC (Auto) (0.0-6.0) /HPF U Epithel Cells (Auto) (0-13.0) /HPF Crossmatch 06/18/22 06/18/22 Range/Units 05:58 05:58 WBC 14.3 H (4.5-11.0) K/mm3 RBC (3.65-5.03) M/mm3 Hgb (10.1-14.3) gm/dl Hct (30.3-42.9) % MCV (79-97) fl MCH (28-32) pg MCHC (30-34) % RDW 15.9 H (13.2-15.2) % Plt Count 66 L (140-440) K/mm3 Lymph % (Auto) 9.8 L (13.4-35.0) % [place] % (Auto) (0.0-7.3) % [place] # (Auto) 0.9 H (0.0-0.8) K/mm3 Seg Neutrophils % 84.1 H (40.0-70.0) % Seg Neuts % (Manual) (40.0-70.0) % Lymphocytes % (Manual) (13.4-35.0) % Seg Neutrophils # 12.0 H (1.8-7.7) K/mm3 Seg Neutrophils # Man (1.8-7.7) K/mm3 Lymphocytes # (Manual) (1.2-5.4) K/mm3 PT (12.2-14.9) Sec. INR (0.87-1.13) Fibrinogen (211-480) mg/dl D-Dimer (0-234) ng/mlDDU Sodium 133 L (137-145) mmol/L Potassium (3.6-5.0) mmol/L Carbon Dioxide 19 L (22-30) mmol/L Glucose 113 H (65-100) mg/dL Calcium 7.0 L (8.4-10.2) mg/dL ALT (7-56) units/L Total Protein 4.4 L (6.3-8.2) g/dL Albumin 2.8 L (3.9-5) g/dL Urine pH (5.0-7.0) Urine WBC (Auto) (0.0-6.0) /HPF U Epithel Cells (Auto) (0-13.0) /HPF Crossmatch Short CBC 06/17/22 06/17/22 06/17/22 Range/Units 11:57 22:48 Unknown WBC 9.6 19.0 H 9.1 (4.5-11.0) K/mm3 Hgb 10.1 14.3 D 5.9 L* D (10.1-14.3) gm/dl Hct 29.3 L 42.5 D 17.5 L* D (30.3-42.9) % Plt Count 155 64 L 143 (140-440) K/mm3 06/18/22 Range/Units 05:58 WBC 14.3 H (4.5-11.0) K/mm3 Hgb 11.3 D (10.1-14.3) gm/dl Hct 34.4 D (30.3-42.9) % Plt Count 66 L (140-440) K/mm3 BMP 06/17/22 06/17/22 06/18/22 17:40 22:48 05:58 Sodium 133 L 133 L 133 L Potassium 3.3 L 4.3 D 4.3 Chloride 101.9 106.9 104.8 Carbon Dioxide 14 L 14 L 19 L BUN 7 9 8 Creatinine 0.7 0.9 1.0 Glucose 120 H 184 H 113 H Calcium 7.0 L 6.2 L 7.0 L Liver Function 06/17/22 06/17/22 06/18/22 Range/Units 17:40 22:48 05:58 Total Bilirubin < 0.20 0.20 0.20 (0.1-1.2) mg/dL AST 13 21 27 (5-40) units/L ALT < 5 L 6 L 8 (7-56) units/L Alkaline Phosphatase 71 55 61 (35-129) units/L Albumin 2.2 L 2.4 L 2.8 L (3.9-5) g/dL Urine 06/17/22 Range/Units 12:10 Urine Color Straw (Yellow) Urine pH 8.0 H (5.0-7.0) Ur Specific [place] 1.005 (1.003-1.030) Urine Protein <15 mg/dl (Negative) mg/dL Urine Glucose (UA) Negative (Negative) mg/dL Assessment and Plan Critical care statement The high probability OF a clinically significant sudden or life-threatening deterioration of the cardiorespiratory system and endocrine system required my full and direct attention, intervention and postoperative management. The aggregate critical care time was 40 minutes. The time is in addition to time spent performing reported procedures but includes the followin: Data review and interpretation 2: Patient assessment and monitoring of vital signs 3: Documentation 4:: Medication orders and management - Patient Problems (1) hemorrhage Current Visit: Yes Status: Acute Qualifiers: hemorrhage type: secondary hemorrhage Qualified Code(s): O72.2 - Delayed and secondary hemorrhage Plan to address problem: Severe Uncontrollable Interventional radiology consult was obtained And patient was recommended [facility] angiography was done and patient had embolization of left uterine artery right uterine artery left internal pudendal artery and left anterior division of left internal iliac artery Patient was transfused about 8 units of packed red blood cells and to transfuse 1 if necessary. Cryoprecipitate was requested fibrinogen was low [employer] informed [facility] intervention appreciated IR consult and procedure appreciated (2) Symptomatic anemia Current Visit: Yes Status: Acute Plan to address problem: Massive blood transfusion Cardiac restraints Monitor in ICU (3) DVT prophylaxis Current Visit: Yes Status: Acute Plan to address problem: SCDs only No heparin at this point
--- NOTE | 2022-06-18 09:05 | Event Note ---
Date: 06/18/22 Patient left wrist with palpable radial pulse. No evidence of hematoma. Patient without numbness and has intact motor with full strength.
--- NOTE | 2022-06-18 09:20 | Post Anesthesia Evaluation ---
- Post Anesthesia Evaluation Patient Participated: Yes Airway Patent: Yes Stable Respiratory Function: Yes Nausea/Vomiting: No Temp > 96.8F: Yes Pain Manageable: Yes Adequeate Hydration: Yes Anesthesia Complications: No Block Receding Appropriately: Yes Patient on Ventilator: No
[2022-06-18] MEDS: WITCH HAZEL/ GLYCERIN PAD TP PRN ×2 (10:01→15:46)
--- NOTE | 2022-06-18 10:59 | Progress Note ---
Assessment and Plan - Patient Problems (1) with 39 completed weeks gestation Current Visit: Yes Status: Resolved (2) History of DVT (deep vein thrombosis) Current Visit: Yes Status: Chronic (3) Active labor Current Visit: Yes Status: Resolved (4) Status post vaginal delivery Current Visit: Yes Status: Acute Plan to address problem: Stable, in the ICU. (5) hemorrhage Onset Date: 06/17/22 Current Visit: Yes Status: Resolved Qualifiers: hemorrhage type: third-stage Qualified Code(s): O72.0 - Third- stage hemorrhage Subjective - Subjective Date of service: 06/18/22 Principal diagnosis: Status post vaginal delivery & hemorrhage day 1 Interval history: Primigravida. care in the [facility]. DEACON 06/20/22. Vaginal deivery 06/17/22 was followed by a massive hemorrhage requiringthe activation of massive transfusion protocol. Bleeding finally brought under control with uterine arterial micro emboli. Spent the night in the ICU. Patient reports: appetite normal, pain well controlled, other : doing well, in NICU Objective - Vital Signs Latest vital signs: Vital Signs Temp Pulse Pulse Resp BP Pulse Ox 06/18/22 10:10 107 H 16 124/85 100 06/18/22 10:00 104 H 16 117/77 100 06/18/22 09:50 108 H 17 117/79 100 06/18/22 09:40 112 H 11 L 117/77 100 06/18/22 09:30 111 H 11 L 117/77 100 06/18/22 09:20 111 H 12 119/79 100 06/18/22 09:10 112 H 14 117/79 100 06/18/22 09:00 110 H 16 117/79 100 06/18/22 08:50 119 H 12 128/81 100 06/18/22 08:40 111 H 14 119/79 100 06/18/22 08:30 104 H 16 119/79 100 06/18/22 08:20 105 H 14 128/81 100 06/18/22 08:10 104 H 17 128/81 100 06/18/22 08:00 97.3 F L 110 H 110 H 18 128/81 100 06/18/22 07:50 115 H 14 125/78 100 06/18/22 07:40 112 H 12 125/78 100 06/18/22 07:30 111 H 12 125/78 100 06/18/22 07:20 111 H 14 125/89 100 06/18/22 07:10 109 H 18 125/89 100 06/18/22 07:00 110 H 11 L 125/89 100 06/18/22 06:50 111 H 12 122/81 100 06/18/22 06:40 103 H 8 L 122/81 100 06/18/22 06:30 112 H 11 L 122/81 100 06/18/22 06:20 109 H 16 143/94 100 06/18/22 06:10 104 H 13 143/94 100 06/18/22 06:00 110 H 12 130/84 100 06/18/22 05:50 104 H 16 124/89 100 06/18/22 05:40 109 H 10 L 124/89 100 06/18/22 05:30 107 H 14 143/94 100 06/18/22 05:20 115 H 14 127/93 100 06/18/22 05:10 105 H 21 127/93 100 06/18/22 05:00 103 H 18 124/89 100 06/18/22 04:50 106 H 15 125/85 100 06/18/22 04:40 108 H 16 125/85 06/18/22 04:30 108 H 17 127/93 100 06/18/22 04:20 107 H 15 125/85 100 06/18/22 04:10 110 H 14 126/89 06/18/22 04:00 106 H 15 126/89 06/18/22 03:50 110 H 19 127/90 99 06/18/22 03:40 105 H 21 121/83 100 06/18/22 03:30 108 H 20 121/83 99 06/18/22 03:20 110 H 11 L 123/76 100 06/18/22 03:10 111 H 11 L 118/87 100 06/18/22 03:00 111 H 20 118/87 99 06/18/22 02:50 107 H 18 119/86 100 06/18/22 02:40 113 H 15 126/96 100 06/18/22 02:30 114 H 12 126/96 100 06/18/22 02:20 109 H 17 125/88 100 06/18/22 02:11 110 H 100 06/18/22 02:10 118 H 13 124/89 100 06/18/22 02:00 113 H 14 133/86 100 06/18/22 01:50 115 H 12 124/89 100 06/18/22 01:40 115 H 19 122/87 100 06/18/22 01:30 111 H 13 122/87 100 06/18/22 01:21 97.4 F L 06/18/22 01:20 113 H 12 127/90 100 06/18/22 01:10 118 H 15 131/96 100 06/18/22 01:00 115 H 11 L 131/96 100 06/18/22 00:50 121 H 13 131/96 100 06/18/22 00:40 118 H 14 140/94 100 06/18/22 00:35 96.9 F L 06/18/22 00:30 123 H 19 140/94 100 06/18/22 00:20 120 H 22 137/96 100 06/18/22 00:10 115 H 20 125/90 100 06/18/22 00:00 117 H 17 132/96 100 06/17/22 23:50 112 H 22 100 06/17/22 23:40 107 H 17 128/84 100 06/17/22 23:37 94 F L 06/17/22 23:30 116 H 24 128/84 100 06/17/22 23:20 116 H 100 06/17/22 21:37 105 H 100 06/17/22 21:32 94 H 98 06/17/22 21:27 117 H 100 06/17/22 21:25 113 H 145/67 06/17/22 21:23 112 H 121/80 06/17/22 21:22 108 H 100 06/17/22 21:19 107 H 124/87 06/17/22 21:17 100 H 122/90 100 06/17/22 21:15 100 H 116/82 06/17/22 21:13 94 H 113/79 06/17/22 21:12 114 H 100 06/17/22 21:11 107 H 122/82 06/17/22 21:09 125 H 126/85 06/17/22 21:07 103 H 119/87 99 06/17/22 21:05 115 H 113/83 06/17/22 21:02 114 H 100 06/17/22 20:57 119 H 99 06/17/22 20:53 120 H 111/74 06/17/22 20:52 120 H 99 06/17/22 20:47 115 H 107/69 100 06/17/22 20:42 115 H 100 06/17/22 20:39 125 H 108/69 06/17/22 20:37 121 H 99 06/17/22 20:36 99.5 F 119 H 18 111/74 100 06/17/22 20:32 118 H 100 06/17/22 20:27 100 H 100 06/17/22 20:24 104 H 112/71 06/17/22 20:22 98 H 100 06/17/22 20:17 93 H 100 06/17/22 20:15 86 131/76 06/17/22 20:14 98.5 F 120 H 18 131/76 06/17/22 20:12 99 H 99 06/17/22 20:10 18 06/17/22 20:09 115 H 137/68 06/17/22 20:07 103 H 100 06/17/22 20:02 118 H 100 06/17/22 19:59 98.5 F 108 H 18 97/57 100 06/17/22 19:57 112 H 99 06/17/22 19:54 111 H 97/57 06/17/22 19:52 108 H 100 06/17/22 19:47 108 H 100 06/17/22 19:45 112 H 93 06/17/22 19:42 116 H 100 06/17/22 19:39 110 H 103/58 06/17/22 19:38 113 H 93 06/17/22 19:37 115 H 100 06/17/22 19:32 106 H 100 06/17/22 19:27 103 H 100 06/17/22 19:24 96/56 06/17/22 19:22 104 H 100 06/17/22 19:17 102 H 100 06/17/22 19:12 92 H 100 06/17/22 19:09 96 H 96/55 06/17/22 19:08 107 H 89/50 06/17/22 19:07 101 H 100 06/17/22 19:02 104 H 100 06/17/22 18:57 105 H 100 06/17/22 18:54 100 H 92/50 06/17/22 18:53 110 H 81/48 06/17/22 18:52 116 H 100 06/17/22 18:47 108 H 100 06/17/22 18:42 107 H 100 06/17/22 18:41 110 H 94 06/17/22 18:39 109 H 80/46 06/17/22 18:37 105 H 100 06/17/22 18:32 101 H 100 06/17/22 18:27 97 H 100 06/17/22 18:24 108 H 98/55 06/17/22 18:22 102 H 100 06/17/22 18:17 93 H 100 06/17/22 18:12 105 H 99 06/17/22 18:07 103 H 99 06/17/22 18:02 89 100 06/17/22 18:00 98.5 F 20 06/17/22 17:59 98 H 128/73 06/17/22 17:57 114 H 100 06/17/22 17:54 105 H 142/79 06/17/22 17:52 110 H 100 06/17/22 17:48 88 135/79 06/17/22 17:47 88 100 06/17/22 17:46 86 132/73 06/17/22 17:44 92 H 134/73 06/17/22 17:42 91 H 127/66 06/17/22 17:41 84 100 06/17/22 17:40 93 H 119/66 06/17/22 17:38 92 H 119/63 06/17/22 17:36 93 H 100 06/17/22 17:34 95 H 124/59 06/17/22 17:32 83 113/64 06/17/22 17:31 95 H 100 06/17/22 17:30 91 H 116/64 06/17/22 17:28 86 108/59 06/17/22 17:26 78 96/54 85 06/17/22 17:24 75 95/49 06/17/22 17:21 81 100 06/17/22 17:18 99 H 62/34 06/17/22 17:16 89 100 06/17/22 17:11 79 99 06/17/22 17:10 71 74/41 90 06/17/22 17:06 101 H 99 06/17/22 17:01 94 H 99 06/17/22 16:56 93 H 99 06/17/22 16:51 104 H 100 06/17/22 16:46 84 100 06/17/22 16:45 81 74 L 06/17/22 16:41 93 H 99 06/17/22 16:40 92 H 173/101 06/17/22 16:36 83 100 06/17/22 16:31 102 H 100 06/17/22 16:26 98 H 100 06/17/22 16:21 98 H 99 06/17/22 16:16 85 100 06/17/22 16:11 88 98 06/17/22 16:10 80 155/92 06/17/22 16:06 90 98 06/17/22 16:01 90 99 06/17/22 15:56 88 100 06/17/22 15:51 83 97 06/17/22 15:50 83 75 L 06/17/22 15:46 90 100 06/17/22 15:41 97 H 99 06/17/22 15:40 87 158/90 06/17/22 15:36 87 99 06/17/22 15:31 94 H 99 06/17/22 15:26 99 H 97 06/17/22 15:21 89 99 06/17/22 15:16 85 97 06/17/22 15:12 74 80 L 06/17/22 15:11 85 142/88 97 06/17/22 15:06 89 100 06/17/22 15:01 89 100 06/17/22 14:56 83 98 06/17/22 14:55 88 78 L 06/17/22 14:51 86 100 06/17/22 14:46 84 98 06/17/22 14:41 86 98 06/17/22 14:40 86 141/88 06/17/22 14:38 100 H 82 L 06/17/22 14:36 91 H 100 06/17/22 14:31 93 H 99 06/17/22 14:26 95 H 100 06/17/22 14:21 97 H 90 06/17/22 14:18 85 94 06/17/22 14:16 88 99 06/17/22 14:11 88 99 06/17/22 14:06 85 97 06/17/22 14:01 85 98 06/17/22 13:56 87 97 06/17/22 13:51 94 H 97 06/17/22 13:46 91 H 99 06/17/22 13:43 83 94 06/17/22 13:41 89 99 06/17/22 13:36 95 H 100 06/17/22 13:31 97 H 98 06/17/22 13:26 87 98 06/17/22 13:21 85 97 06/17/22 13:16 89 97 06/17/22 13:11 82 99 06/17/22 13:06 91 H 100 06/17/22 13:01 89 100 06/17/22 12:56 85 100 06/17/22 12:51 83 100 06/17/22 12:50 98.5 F 88 18 100 06/17/22 12:46 91 H 100 06/17/22 12:41 97 H 97 06/17/22 12:38 94 H 94 06/17/22 12:36 91 H 98 06/17/22 11:52 95 H 99 06/17/22 11:47 88 98 06/17/22 11:42 90 97 06/17/22 11:37 88 99 06/17/22 11:32 94 H 98 06/17/22 11:28 88 144/92 06/17/22 11:27 98 H 99 06/17/22 11:09 94 H 99 06/17/22 11:04 98 H 99 06/17/22 10:59 94 H 99 Intake and Output 06/17/22 06/18/22 06/18/22 23:59 07:59 15:59 Intake Total 1522.5 30 Output Total 1100 500 400 Balance 422.5 -470 -400 Intake: IV 1522.5 Lactated Ringers 1,000 ml 1000 @ 125 mls/hr IV DIRECT [facility] Rx#:[id number] Oral 30 Blood Product 0 Leukoreduced Red Blood 0 Cells Unit [id number] Leukoreduced Red Blood 0 Cells Unit [id number] Leukoreduced Red Blood 0 Cells Unit [id number] Output: Urine 1100 500 400 Indwelling Catheter 1100 500 Uretheral ([place]) 400 Other: Total, Intake Amount 30 Total, Output Amount 300 250 Voiding Method Indwelling Catheter Indwelling Catheter # Voids Indwelling Catheter 1 1 Estimated Blood Loss 1,500 - Exam Lungs: Present: Normal air movement Abdomen: Present: normal appearance, soft, normal bowel sounds Uterus: Present: normal, firm Extremities: Present: normal Deep Tendon Reflex Grade: Normal +2 - Labs Labs: Abnormal lab results 06/17/22 06/17/22 06/17/22 Range/Units 11:40 11:57 12:10 WBC (4.5-11.0) K/mm3 RBC 3.01 L (3.65-5.03) M/mm3 Hgb (10.1-14.3) gm/dl Hct 29.3 L (30.3-42.9) % MCV (79-97) fl MCH 34 H (28-32) pg MCHC 35 H (30-34) % RDW 12.5 L (13.2-15.2) % Plt Count (140-440) K/mm3 Lymph % (Auto) (13.4-35.0) % [place] % (Auto) 7.4 H (0.0-7.3) % [place] # (Auto) (0.0-0.8) K/mm3 Seg Neutrophils % (40.0-70.0) % Seg Neuts % (Manual) (40.0-70.0) % Lymphocytes % (Manual) (13.4-35.0) % Seg Neutrophils # (1.8-7.7) K/mm3 Seg Neutrophils # Man (1.8-7.7) K/mm3 Lymphocytes # (Manual) (1.2-5.4) K/mm3 PT (12.2-14.9) Sec. INR (0.87-1.13) Fibrinogen (211-480) mg/dl D-Dimer (0-234) ng/mlDDU Sodium (137-145) mmol/L Potassium (3.6-5.0) mmol/L Carbon Dioxide (22-30) mmol/L Glucose (65-100) mg/dL Calcium (8.4-10.2) mg/dL ALT (7-56) units/L Total Protein (6.3-8.2) g/dL Albumin (3.9-5) g/dL Urine pH 8.0 H (5.0-7.0) Urine WBC (Auto) 14.0 H (0.0-6.0) /HPF U Epithel Cells (Auto) 15.0 H (0-13.0) /HPF Crossmatch See Detail 06/17/22 06/17/22 06/17/22 Range/Units 17:40 17:40 22:48 WBC (4.5-11.0) K/mm3 RBC (3.65-5.03) M/mm3 Hgb (10.1-14.3) gm/dl Hct (30.3-42.9) % MCV (79-97) fl MCH (28-32) pg MCHC (30-34) % RDW (13.2-15.2) % Plt Count (140-440) K/mm3 Lymph % (Auto) (13.4-35.0) % [place] % (Auto) (0.0-7.3) % [place] # (Auto) (0.0-0.8) K/mm3 Seg Neutrophils % (40.0-70.0) % Seg Neuts % (Manual) (40.0-70.0) % Lymphocytes % (Manual) (13.4-35.0) % Seg Neutrophils # (1.8-7.7) K/mm3 Seg Neutrophils # Man (1.8-7.7) K/mm3 Lymphocytes # (Manual) (1.2-5.4) K/mm3 PT 17.0 H 17.1 H (12.2-14.9) Sec. INR 1.23 H 1.24 H (0.87-1.13) Fibrinogen 150 L 135 L* (211-480) mg/dl D-Dimer 7013.41 H (0-234) ng/mlDDU Sodium 133 L (137-145) mmol/L Potassium 3.3 L (3.6-5.0) mmol/L Carbon Dioxide 14 L (22-30) mmol/L Glucose 120 H (65-100) mg/dL Calcium 7.0 L (8.4-10.2) mg/dL ALT < 5 L (7-56) units/L Total Protein 4.0 L (6.3-8.2) g/dL Albumin 2.2 L (3.9-5) g/dL Urine pH (5.0-7.0) Urine WBC (Auto) (0.0-6.0) /HPF U Epithel Cells (Auto) (0-13.0) /HPF Crossmatch 06/17/22 06/17/22 06/17/22 Range/Units 22:48 22:48 Unknown WBC 19.0 H (4.5-11.0) K/mm3 RBC 1.73 L (3.65-5.03) M/mm3 Hgb 5.9 L* D (10.1-14.3) gm/dl Hct 17.5 L* D (30.3-42.9) % MCV 101 H (79-97) fl MCH 34 H (28-32) pg MCHC (30-34) % RDW 16.4 H 12.6 L (13.2-15.2) % Plt Count 64 L (140-440) K/mm3 Lymph % (Auto) (13.4-35.0) % [place] % (Auto) (0.0-7.3) % [place] # (Auto) (0.0-0.8) K/mm3 Seg Neutrophils % 82.0 H (40.0-70.0) % Seg Neuts % (Manual) 89.0 H (40.0-70.0) % Lymphocytes % (Manual) 3.0 L (13.4-35.0) % Seg Neutrophils # (1.8-7.7) K/mm3 Seg Neutrophils # Man 16.9 H (1.8-7.7) K/mm3 Lymphocytes # (Manual) 0.6 L (1.2-5.4) K/mm3 PT (12.2-14.9) Sec. INR (0.87-1.13) Fibrinogen (211-480) mg/dl D-Dimer (0-234) ng/mlDDU Sodium 133 L (137-145) mmol/L Potassium (3.6-5.0) mmol/L Carbon Dioxide 14 L (22-30) mmol/L Glucose 184 H (65-100) mg/dL Calcium 6.2 L (8.4-10.2) mg/dL ALT 6 L (7-56) units/L Total Protein 3.8 L (6.3-8.2) g/dL Albumin 2.4 L (3.9-5) g/dL Urine pH (5.0-7.0) Urine WBC (Auto) (0.0-6.0) /HPF U Epithel Cells (Auto) (0-13.0) /HPF Crossmatch 06/18/22 06/18/22 Range/Units 05:58 05:58 WBC 14.3 H (4.5-11.0) K/mm3 RBC (3.65-5.03) M/mm3 Hgb (10.1-14.3) gm/dl Hct (30.3-42.9) % MCV (79-97) fl MCH (28-32) pg MCHC (30-34) % RDW 15.9 H (13.2-15.2) % Plt Count 66 L (140-440) K/mm3 Lymph % (Auto) 9.8 L (13.4-35.0) % [place] % (Auto) (0.0-7.3) % [place] # (Auto) 0.9 H (0.0-0.8) K/mm3 Seg Neutrophils % 84.1 H (40.0-70.0) % Seg Neuts % (Manual) (40.0-70.0) % Lymphocytes % (Manual) (13.4-35.0) % Seg Neutrophils # 12.0 H (1.8-7.7) K/mm3 Seg Neutrophils # Man (1.8-7.7) K/mm3 Lymphocytes # (Manual) (1.2-5.4) K/mm3 PT (12.2-14.9) Sec. INR (0.87-1.13) Fibrinogen (211-480) mg/dl D-Dimer (0-234) ng/mlDDU Sodium 133 L (137-145) mmol/L Potassium (3.6-5.0) mmol/L Carbon Dioxide 19 L (22-30) mmol/L Glucose 113 H (65-100) mg/dL Calcium 7.0 L (8.4-10.2) mg/dL ALT (7-56) units/L Total Protein 4.4 L (6.3-8.2) g/dL Albumin 2.8 L (3.9-5) g/dL Urine pH (5.0-7.0) Urine WBC (Auto) (0.0-6.0) /HPF U Epithel Cells (Auto) (0-13.0) /HPF Crossmatch
--- NOTE | 2022-06-18 12:23 | Consultation ---
History of Present Illness - Reason for Consult Consult date: 06/18/22 Post Hemorrhage - History of Present Illness 22 y/o female with massive post hemorrhage requiring ICU for res uscitation and monitoring. ICU did a wonderful job of resuscitation overnight giving 6 PRBC's, and Cyro. This am, patient is normotensive, not requiring pressors and remains on room air. Pain is well controlled. Taken to IR suite last night with embolization of urterine artery. Remainder is negative. Past History Past Medical History: No medical history, other (Asthma, DVT) Past Surgical History: Other (Vaginal ) Social history: no significant social history Family history: no significant family history Medications and Allergies Allergies Allergy/AdvReac Type Severity Reaction Status Date / Time No Known Allergies Allergy Verified 06/17/22 12:15 Home Medications Medication Instructions Recorded Confirmed Last Taken Type Enoxaparin [Lovenox] 60 mg SQ Q12HR 06/17/22 06/17/22 1 Month Ago History ~05/18/22 Vit No.179/Iron/Folic 1 each PO DAILY 06/17/22 06/17/22 1 Month Ago History [ Tablet] ~05/18/22 Active Meds: Active Medications Acetaminophen (Acetaminophen 325 Mg Tab) 650 mg PO Q4H PRN PRN Reason: Pain MILD(1-3)/Fever >100.5/SMITH Hydrocodone Bitart/Acetaminophen (Hydrocodone/Acetaminophen 5-325 Mg Tab) 2 each PO Q6H PRN PRN Reason: Pain, Moderate (4-6) Last Admin: 06/18/22 06:24 Dose: 2 each Bisacodyl (Bisacodyl 10 Mg Rect Supp) 10 mg IA BID PRN PRN Reason: Constipation Carboprost Tromethamine (Carboprost Tromethamine 250 Mcg/1 Ml Inj) 250 mcg IM ONCE PRN PRN Reason: Uterine Bleeding Diphenhydramine HCl (Diphenhydramine 25 Mg Cap) 25 mg PO Q6H PRN PRN Reason: Itching Ephedrine Sulfate (Ephedrine Sulfate 50 Mg/1 Ml Inj) 10 mg IV Q2M PRN PRN Reason: Hypotension Last Admin: 06/17/22 17:22 Dose: 10 mg Hydromorphone HCl (Hydromorphone 1 Mg/1 Ml Inj) 0.5 mg IV Q2H PRN PRN Reason: Pain , Severe (7-10) Last Admin: 06/18/22 01:02 Dose: 0.5 mg Oxytocin/Sodium Chloride (Pitocin/Ns 30 Unit/500ml) 30 units in 500 mls @ 2 mls/hr IV TITR KATHY; Protocol Ketorolac Tromethamine (Ketorolac 30 Mg/1 Ml Inj) 30 mg IV Q6H PRN PRN Reason: Pain, Moderate (4-6) Stop: 06/22/22 19:16 Loperamide HCl (Loperamide 2 Mg Cap) 2 mg PO ONCE PRN PRN Reason: give with Hemabate Magnesium Hydroxide (Magnesium Hydroxide (Mom) Oral Liqd Udc) 30 ml PO HS PRN PRN Reason: Constipation Mineral Oil (Mineral Oil 30 Ml Oral Liqd) 30 ml PO QHS PRN PRN Reason: Constipation Multi-Ingredient Ointment (Lanolin/Zinc/Dimethicone (Lansinoh) 7 Gm) 1 applic TP PRN PRN PRN Reason: Sore Nipples Ondansetron HCl (Ondansetron 4 Mg/2 Ml Inj) 4 mg IV Q4H PRN PRN Reason: Nausea And Vomiting Oxytocin (Oxytocin 10 Unit/1 Ml Inj) 10 unit IM ONCE PRN PRN Reason: Uterine Bleeding Promethazine HCl (Promethazine 25 Mg Rect Supp) 25 mg IA Q6H PRN PRN Reason: Nausea And Vomiting Promethazine HCl (Promethazine 25 Mg Tab) 25 mg PO Q6H PRN PRN Reason: Nausea And Vomiting Sodium Chloride (Sodium Chloride 0.9% 10 Ml Flush Syringe) 10 ml IV PRN NR Stop: 06/27/22 23:59 Terbutaline Sulfate (Terbutaline 1 Mg/1 Ml Inj) 0.25 mg SUB-Q ONCE PRN PRN Reason: Hyperstimulation/Hypertonicity Witch Martha/Glycerin (Witch Martha/ Glycerin Pad) 1 each TP PRN PRN PRN Reason: Hemorrhoid/cleansing/soothing Last Admin: 06/18/22 10:01 Dose: 1 each Review of Systems All systems: negative Exam - Constitutional Vitals: Temp Pulse Resp BP Pulse Ox 97.3 F L 106 H 16 123/86 100 06/18/22 08:00 06/18/22 12:10 06/18/22 12:10 06/18/22 12:10 06/18/22 12:10 Results - Labs CBC & Chem 7: 06/18/22 05:58 06/18/22 05:58 Labs: Abnormal lab results 06/17/22 06/17/22 06/17/22 Range/Units 11:40 11:57 12:10 WBC (4.5-11.0) K/mm3 RBC 3.01 L (3.65-5.03) M/mm3 Hgb (10.1-14.3) gm/dl Hct 29.3 L (30.3-42.9) % MCV (79-97) fl MCH 34 H (28-32) pg MCHC 35 H (30-34) % RDW 12.5 L (13.2-15.2) % Plt Count (140-440) K/mm3 Lymph % (Auto) (13.4-35.0) % [place] % (Auto) 7.4 H (0.0-7.3) % [place] # (Auto) (0.0-0.8) K/mm3 Seg Neutrophils % (40.0-70.0) % Seg Neuts % (Manual) (40.0-70.0) % Lymphocytes % (Manual) (13.4-35.0) % Seg Neutrophils # (1.8-7.7) K/mm3 Seg Neutrophils # Man (1.8-7.7) K/mm3 Lymphocytes # (Manual) (1.2-5.4) K/mm3 PT (12.2-14.9) Sec. INR (0.87-1.13) Fibrinogen (211-480) mg/dl D-Dimer (0-234) ng/mlDDU Sodium (137-145) mmol/L Potassium (3.6-5.0) mmol/L Carbon Dioxide (22-30) mmol/L Glucose (65-100) mg/dL Calcium (8.4-10.2) mg/dL ALT (7-56) units/L Total Protein (6.3-8.2) g/dL Albumin (3.9-5) g/dL Urine pH 8.0 H (5.0-7.0) Urine WBC (Auto) 14.0 H (0.0-6.0) /HPF U Epithel Cells (Auto) 15.0 H (0-13.0) /HPF Crossmatch See Detail 06/17/22 06/17/22 06/17/22 Range/Units 17:40 17:40 22:48 WBC (4.5-11.0) K/mm3 RBC (3.65-5.03) M/mm3 Hgb (10.1-14.3) gm/dl Hct (30.3-42.9) % MCV (79-97) fl MCH (28-32) pg MCHC (30-34) % RDW (13.2-15.2) % Plt Count (140-440) K/mm3 Lymph % (Auto) (13.4-35.0) % [place] % (Auto) (0.0-7.3) % [place] # (Auto) (0.0-0.8) K/mm3 Seg Neutrophils % (40.0-70.0) % Seg Neuts % (Manual) (40.0-70.0) % Lymphocytes % (Manual) (13.4-35.0) % Seg Neutrophils # (1.8-7.7) K/mm3 Seg Neutrophils # Man (1.8-7.7) K/mm3 Lymphocytes # (Manual) (1.2-5.4) K/mm3 PT 17.0 H 17.1 H (12.2-14.9) Sec. INR 1.23 H 1.24 H (0.87-1.13) Fibrinogen 150 L 135 L* (211-480) mg/dl D-Dimer 7013.41 H (0-234) ng/mlDDU Sodium 133 L (137-145) mmol/L Potassium 3.3 L (3.6-5.0) mmol/L Carbon Dioxide 14 L (22-30) mmol/L Glucose 120 H (65-100) mg/dL Calcium 7.0 L (8.4-10.2) mg/dL ALT < 5 L (7-56) units/L Total Protein 4.0 L (6.3-8.2) g/dL Albumin 2.2 L (3.9-5) g/dL Urine pH (5.0-7.0) Urine WBC (Auto) (0.0-6.0) /HPF U Epithel Cells (Auto) (0-13.0) /HPF Crossmatch 06/17/22 06/17/22 06/17/22 Range/Units 22:48 22:48 Unknown WBC 19.0 H (4.5-11.0) K/mm3 RBC 1.73 L (3.65-5.03) M/mm3 Hgb 5.9 L* D (10.1-14.3) gm/dl Hct 17.5 L* D (30.3-42.9) % MCV 101 H (79-97) fl MCH 34 H (28-32) pg MCHC (30-34) % RDW 16.4 H 12.6 L (13.2-15.2) % Plt Count 64 L (140-440) K/mm3 Lymph % (Auto) (13.4-35.0) % [place] % (Auto) (0.0-7.3) % [place] # (Auto) (0.0-0.8) K/mm3 Seg Neutrophils % 82.0 H (40.0-70.0) % Seg Neuts % (Manual) 89.0 H (40.0-70.0) % Lymphocytes % (Manual) 3.0 L (13.4-35.0) % Seg Neutrophils # (1.8-7.7) K/mm3 Seg Neutrophils # Man 16.9 H (1.8-7.7) K/mm3 Lymphocytes # (Manual) 0.6 L (1.2-5.4) K/mm3 PT (12.2-14.9) Sec. INR (0.87-1.13) Fibrinogen (211-480) mg/dl D-Dimer (0-234) ng/mlDDU Sodium 133 L (137-145) mmol/L Potassium (3.6-5.0) mmol/L Carbon Dioxide 14 L (22-30) mmol/L Glucose 184 H (65-100) mg/dL Calcium 6.2 L (8.4-10.2) mg/dL ALT 6 L (7-56) units/L Total Protein 3.8 L (6.3-8.2) g/dL Albumin 2.4 L (3.9-5) g/dL Urine pH (5.0-7.0) Urine WBC (Auto) (0.0-6.0) /HPF U Epithel Cells (Auto) (0-13.0) /HPF Crossmatch 06/18/22 06/18/22 Range/Units 05:58 05:58 WBC 14.3 H (4.5-11.0) K/mm3 RBC (3.65-5.03) M/mm3 Hgb (10.1-14.3) gm/dl Hct (30.3-42.9) % MCV (79-97) fl MCH (28-32) pg MCHC (30-34) % RDW 15.9 H (13.2-15.2) % Plt Count 66 L (140-440) K/mm3 Lymph % (Auto) 9.8 L (13.4-35.0) % [place] % (Auto) (0.0-7.3) % [place] # (Auto) 0.9 H (0.0-0.8) K/mm3 Seg Neutrophils % 84.1 H (40.0-70.0) % Seg Neuts % (Manual) (40.0-70.0) % Lymphocytes % (Manual) (13.4-35.0) % Seg Neutrophils # 12.0 H (1.8-7.7) K/mm3 Seg Neutrophils # Man (1.8-7.7) K/mm3 Lymphocytes # (Manual) (1.2-5.4) K/mm3 PT (12.2-14.9) Sec. INR (0.87-1.13) Fibrinogen (211-480) mg/dl D-Dimer (0-234) ng/mlDDU Sodium 133 L (137-145) mmol/L Potassium (3.6-5.0) mmol/L Carbon Dioxide 19 L (22-30) mmol/L Glucose 113 H (65-100) mg/dL Calcium 7.0 L (8.4-10.2) mg/dL ALT (7-56) units/L Total Protein 4.4 L (6.3-8.2) g/dL Albumin 2.8 L (3.9-5) g/dL Urine pH (5.0-7.0) Urine WBC (Auto) (0.0-6.0) /HPF U Epithel Cells (Auto) (0-13.0) /HPF Crossmatch Assessment and Plan 22 y/o female with hemorrhage after vaginal delivery requiring uterine artery embolization and aggressive resuscitation. 1. Follow up repeat CBC to make sure H/H are stable and that platelets are not continuing to Trend down. Fibrinogen is greater than 300 now and no active evidence of bleeding. Stable BP 2. Pain control 3. PO foods 4. OOB when OB feels ready 5. Prior history of asthma, not in flare, will add PRN albuterol 6. Keep in ICU for the next 24 hours and assess. Likely ok for mother baby tomorrow.
[2022-06-18] MEDS ORDERED: ALBUTEROL 2.5 MG/3 ML NEBU IH PRN (13:00)
[2022-06-18 14:07] LABS: Basophils % (Auto) 0.1 % (0.0-1.8); Hematocrit 26.6 % (30.3-42.9); Hemoglobin 9.1 gm/dl (10.1-14.3); Lymphocytes # (Auto) 2.1 K/mm3 (1.2-5.4); Lymphocytes % (Auto) 16.3 % (13.4-35.0); Mean Corpuscular HGB Conc 34 % (30-34); Mean Corpuscular Volume 87 fl (79-97); Monocytes # (Auto) 1.3 K/mm3 (0.0-0.8); Monocytes % (Auto) 10.1 % (0.0-7.3); Red Blood Count 3.05 M/mm3 (3.65-5.03); Red Cell Distribution Width 15.7 % (13.2-15.2)
[2022-06-18 14:08] LABS: Platelet Count 67 K/mm3 (140-440)
--- NOTE | 2022-06-18 15:19 | Progress Note ---
Assessment and Plan Assessment and plan: This is a 22-year-old female with history of DVTs s/p vaginal c/b hemorrhage s/p Gelfoam ligation of bilateral uterine arteries, left internal pudendal artery and anterior division of internal iliac artery # hemorrhage -s/p vaginal brith c/b hemmorhage -s/p 2 L normal saline, Pitocin, Cytotec, Methergine andBakanis ballon -s/p gel foam ligation of bilateral uterine arteries, left internal pudendal artery and anterior division of internal iliac artery -6 units PRBC and 1 unit cryoprecipitate -Fibrinogen is 381 post cryo -IR consulted, apprecitate recommendations -No chemical anticoagulation in setting of severe anemia -SCDs to bilateral lower extremities while in bed #Leukocytosis -maybe reactive -Trend CBC #Thrombocytopenia -No noted unusual bleeding apart from normal bleeding -Will trend plts #Mild protein calorie malnutrition -Dietary supplementation #h/o DVT -Diagnosed at 3 months -Home therapy with lovenox #h/o asthma -prn albuterol The high probability of a clinically significant, sudden or life threatening deterioration of the [heme] system(s) required my full and direct attention, intervention and personal management. The aggregate critical care time was [60] minutes. This time is in addition to time spent performing reported procedures but includes the following: [x] Data Review and interpretation [x] Patient assessment and monitoring of vital signs [x] Documentation [x] Medication orders and management Disposition Plan: icu Total Time Spent with Patient (Minutes): 60 History Interval history: This is a 22-year-old female who has a history of DVTs and asthma and was taking anticoagulation with Lovenox subcu since 3 months who is status post vaginal complicated by hemorrhage and was transfused a total of 6 unit PRBC and 1 cryoprecipitate and was taken emergently to IR for a gel foam ligation of bilateral uterine arteries, left internal pudendal artery and anterior division of internal iliac artery. Hospital course to date: 06/18: Patient slightly tachycardic, lactated Ringer's IV fluid discontinued, will follow serial CBCs. Patient will stay in ICU for today for continued monitoring. No further bleeding noted aside from usual bleeding Hospitalist Physical - Constitutional Vitals: Temp Pulse Resp BP Pulse Ox 98.3 F 107 H 14 116/74 100 06/18/22 12:00 06/18/22 14:20 06/18/22 14:20 06/18/22 14:20 06/18/22 14:20 General appearance: Present: no acute distress, well-nourished - EENT Eyes: Present: PERRL, EOM intact - Neck Neck: Present: supple, normal ROM - Respiratory Respiratory effort: normal Respiratory: bilateral: CTA - Cardiovascular Rhythm: regular Heart Sounds: Present: S1 & S2. Absent: systolic murmur, diastolic murmur - Extremities Extremities: no ischemia, pulses intact, pulses symmetrical, No edema, normal temperature, normal color Peripheral Pulses: within normal limits - Abdominal General gastrointestinal: soft, non-tender, non-distended, normal bowel sounds - Integumentary Integumentary: Present: warm - Psychiatric Psychiatric: appropriate mood/affect, cooperative - Neurologic Neurologic: CNII-XII intact, no focal deficits, moves all extremities - Allied Health Allied health notes reviewed: nursing, social work Results - Labs CBC & Chem 7: 06/18/22 12:54 06/18/22 05:58 Labs: Laboratory Last Values WBC 12.7 K/mm3 (4.5-11.0) H 06/18/22 12:54 RBC 3.05 M/mm3 (3.65-5.03) L 06/18/22 12:54 Hgb 9.1 gm/dl (10.1-14.3) L 06/18/22 12:54 Hct 26.6 % (30.3-42.9) L D 06/18/22 12:54 MCV 87 fl (79-97) 06/18/22 12:54 MCH 30 pg (28-32) 06/18/22 12:54 MCHC 34 % (30-34) 06/18/22 12:54 RDW 15.7 % (13.2-15.2) H 06/18/22 12:54 Plt Count 67 K/mm3 (140-440) L 06/18/22 12:54 Lymph % (Auto) 16.3 % (13.4-35.0) 06/18/22 12:54 [place] % (Auto) 10.1 % (0.0-7.3) H 06/18/22 12:54 Eos % (Auto) 0.0 % (0.0-4.3) 06/18/22 12:54 Baso % (Auto) 0.1 % (0.0-1.8) 06/18/22 12:54 Lymph # (Auto) 2.1 K/mm3 (1.2-5.4) 06/18/22 12:54 [place] # (Auto) 1.3 K/mm3 (0.0-0.8) H 06/18/22 12:54 Eos # (Auto) 0.0 K/mm3 (0.0-0.4) 06/18/22 12:54 Baso # (Auto) 0.0 K/mm3 (0.0-0.1) 06/18/22 12:54 Add Manual Diff Complete 06/17/22 22:48 Total Counted 100 06/17/22 22:48 Seg Neutrophils % 73.5 % (40.0-70.0) H 06/18/22 12:54 Seg Neuts % (Manual) 89.0 % (40.0-70.0) H 06/17/22 22:48 Band Neutrophils % 4.0 % 06/17/22 22:48 Lymphocytes % (Manual) 3.0 % (13.4-35.0) L 06/17/22 22:48 Reactive Lymphs % (Man) 0 % 06/17/22 22:48 Monocytes % (Manual) 2.0 % (0.0-7.3) 06/17/22 22:48 Eosinophils % (Manual) 0 % (0.0-4.3) 06/17/22 22:48 Basophils % (Manual) 0 % (0.0-1.8) 06/17/22 22:48 Metamyelocytes % 2.0 % 06/17/22 22:48 Myelocytes % 0 % 06/17/22 22:48 Promyelocytes % 0 % 06/17/22 22:48 Blast Cells % 0 % 06/17/22 22:48 Nucleated RBC % Not Reportable 06/17/22 22:48 Seg Neutrophils # 9.3 K/mm3 (1.8-7.7) H 06/18/22 12:54 Seg Neutrophils # Man 16.9 K/mm3 (1.8-7.7) H 06/17/22 22:48 Band Neutrophils # 0.8 K/mm3 06/17/22 22:48 Lymphocytes # (Manual) 0.6 K/mm3 (1.2-5.4) L 06/17/22 22:48 Abs React Lymphs (Man) 0.0 K/mm3 06/17/22 22:48 Monocytes # (Manual) 0.4 K/mm3 (0.0-0.8) 06/17/22 22:48 Eosinophils # (Manual) 0.0 K/mm3 (0.0-0.4) 06/17/22 22:48 Basophils # (Manual) 0.0 K/mm3 (0.0-0.1) 06/17/22 22:48 Metamyelocytes # 0.4 K/mm3 06/17/22 22:48 Myelocytes # 0.0 K/mm3 06/17/22 22:48 Promyelocytes # 0.0 K/mm3 06/17/22 22:48 Blast Cells # 0.0 K/mm3 06/17/22 22:48 WBC Morphology Not Reportable 06/17/22 22:48 Hypersegmented Neuts Not Reportable 06/17/22 22:48 Hyposegmented Neuts Not Reportable 06/17/22 22:48 Hypogranular Neuts Not Reportable 06/17/22 22:48 Smudge Cells Not Reportable 06/17/22 22:48 Toxic Granulation Not Reportable 06/17/22 22:48 Toxic Vacuolation Not Reportable 06/17/22 22:48 Dohle Bodies Not Reportable 06/17/22 22:48 Pelger-Huet Anomaly Not Reportable 06/17/22 22:48 Sage Rods Not Reportable 06/17/22 22:48 Platelet Estimate Appears decreased 06/17/22 22:48 Clumped Platelets Not Reportable 06/17/22 22:48 Plt Clumps, EDTA Not Reportable 06/17/22 22:48 Large Platelets Not Reportable 06/17/22 22:48 Giant Platelets Not Reportable 06/17/22 22:48 Platelet Satelliting Not Reportable 06/17/22 22:48 Plt Morphology Comment Not Reportable 06/17/22 22:48 RBC Morphology Normal 06/17/22 22:48 Dimorphic RBCs Not Reportable 06/17/22 22:48 Polychromasia Not Reportable 06/17/22 22:48 Hypochromasia Not Reportable 06/17/22 22:48 Poikilocytosis Not Reportable 06/17/22 22:48 Anisocytosis Not Reportable 06/17/22 22:48 Microcytosis Not Reportable 06/17/22 22:48 Macrocytosis Not Reportable 06/17/22 22:48 Spherocytes Not Reportable 06/17/22 22:48 Pappenheimer Bodies Not Reportable 06/17/22 22:48 Sickle Cells Not Reportable 06/17/22 22:48 Target Cells Not Reportable 06/17/22 22:48 Tear Drop Cells Not Reportable 06/17/22 22:48 Ovalocytes Not Reportable 06/17/22 22:48 Helmet Cells Not Reportable 06/17/22 22:48 [place] Bodies Not Reportable 06/17/22 22:48 [place] Rings Not Reportable 06/17/22 22:48 [place] Cells Not Reportable 06/17/22 22:48 Bite Cells Not Reportable 06/17/22 22:48 Crenated Cell Not Reportable 06/17/22 22:48 Elliptocytes Not Reportable 06/17/22 22:48 Acanthocytes (Spur) Not Reportable 06/17/22 22:48 Rouleaux Not Reportable 06/17/22 22:48 Hemoglobin C Crystals Not Reportable 06/17/22 22:48 Schistocytes Not Reportable 06/17/22 22:48 Malaria parasites Not Reportable 06/17/22 22:48 Ck Bodies Not Reportable 06/17/22 22:48 Hem Pathologist Commnt No 06/17/22 22:48 PT 14.3 Sec. (12.2-14.9) 06/18/22 12:54 INR 1.00 (0.87-1.13) 06/18/22 12:54 APTT 28.4 Sec. (24.2-36.6) 06/17/22 22:48 Fibrinogen 375 mg/dl (211-480) 06/18/22 12:54 D-Dimer 7013.41 ng/mlDDU (0-234) H 06/17/22 17:40 Sodium 133 mmol/L (137-145) L 06/18/22 05:58 Potassium 4.3 mmol/L (3.6-5.0) 06/18/22 05:58 Chloride 104.8 mmol/L (98-107) 06/18/22 05:58 Carbon Dioxide 19 mmol/L (22-30) L 06/18/22 05:58 Anion Gap 14 mmol/L 06/18/22 05:58 BUN 8 mg/dL (7-17) 06/18/22 05:58 Creatinine 1.0 mg/dL (0.6-1.2) 06/18/22 05:58 Estimated GFR > 60 ml/min 06/18/22 05:58 BUN/Creatinine Ratio 8 % 06/18/22 05:58 Glucose 113 mg/dL (65-100) H 06/18/22 05:58 Calcium 7.0 mg/dL (8.4-10.2) L 06/18/22 05:58 Total Bilirubin 0.20 mg/dL (0.1-1.2) 06/18/22 05:58 AST 27 units/L (5-40) 06/18/22 05:58 ALT 8 units/L (7-56) 06/18/22 05:58 Alkaline Phosphatase 61 units/L (35-129) 06/18/22 05:58 Total Protein 4.4 g/dL (6.3-8.2) L 06/18/22 05:58 Albumin 2.8 g/dL (3.9-5) L 06/18/22 05:58 Albumin/Globulin Ratio 1.8 % 06/18/22 05:58 Urine Color Straw (Yellow) 06/17/22 12:10 Urine Turbidity Clear (Clear) 06/17/22 12:10 Urine pH 8.0 (5.0-7.0) H 06/17/22 12:10 Ur Specific [place] 1.005 (1.003-1.030) 06/17/22 12:10 Urine Protein <15 mg/dl mg/dL (Negative) 06/17/22 12:10 Urine Glucose (UA) Negative mg/dL (Negative) 06/17/22 12:10 Urine Ketones Negative mg/dL (Negative) 06/17/22 12:10 Urine Blood Trace (Negative) 06/17/22 12:10 Urine Nitrite Negative (Negative) 06/17/22 12:10 Ur Reducing Substances Not Reportable 06/17/22 12:10 Urine Bilirubin Negative (Negative) 06/17/22 12:10 Urine Ictotest Not Reportable 06/17/22 12:10 Urine Urobilinogen < 2.0 mg/dL (<2.0) 06/17/22 12:10 Ur Leukocyte Esterase Small (Negative) 06/17/22 12:10 Urine WBC (Auto) 14.0 /HPF (0.0-6.0) H 06/17/22 12:10 Urine RBC (Auto) 5.0 /HPF (0.0-6.0) 06/17/22 12:10 U Epithel Cells (Auto) 15.0 /HPF (0-13.0) H 06/17/22 12:10 Urine Bacteria (Auto) 1+ /HPF (Negative) 06/17/22 12:10 Hyaline Casts 1 /LPF 06/17/22 12:10 Urine Mucus Few /HPF 06/17/22 12:10 Urine Opiates Screen Negative 06/17/22 12:09 Urine Methadone Screen Negative 06/17/22 12:09 Ur Barbiturates Screen Negative 06/17/22 12:09 Ur Phencyclidine Scrn Negative 06/17/22 12:09 Ur Amphetamines Screen Negative 06/17/22 12:09 U Benzodiazepines Scrn Negative 06/17/22 12:09 Urine Cocaine Screen Negative 06/17/22 12:09 U Marijuana (THC) Screen Negative 06/17/22 12:09 Drugs of Abuse Note Disclamer 06/17/22 12:09 Syphilis IgG/IgM Ab Nonreactive (NonReactive) 06/17/22 12:10 SARS-CoV-2 (PCR) Negative (Negative) 06/17/22 11:40 Hep Bs Antigen Non-reactive (Negative) 06/17/22 12:10 Rubella IgG Antibody Immune (Immune) 06/17/22 12:10 Blood Type O POSITIVE 06/17/22 11:40 Antibody Screen Negative 06/17/22 11:40 Crossmatch See Detail 06/17/22 11:40 [place]/IV: Voiding Method Indwelling Catheter Active Medications - Current Medications Current Medications: Generic Name Dose Route Start Last Admin Trade Name Freq PRN Reason Stop Dose Admin Acetaminophen 650 mg 06/17/22 19:17 Acetaminophen 325 Mg Tab PO Q4H PRN Pain MILD(1-3)/Fever >100.5/SMITH Hydrocodone Bitart/Acetaminophen 2 each 06/17/22 19:17 06/18/22 06:24 Hydrocodone/Acetaminophen 5-325 Mg Tab PO 2 each Q6H PRN Administration Pain, Moderate (4-6) Albuterol 2.5 mg 06/18/22 13:00 Albuterol 2.5 Mg/3 Ml Nebu IH Q4HRT PRN Shortness Of Breath Bisacodyl 10 mg 06/17/22 19:17 Bisacodyl 10 Mg Rect Supp [place] BID PRN Constipation Carboprost Tromethamine 250 mcg 06/17/22 11:57 Carboprost Tromethamine 250 Mcg/1 Ml Inj IM ONCE PRN Uterine Bleeding Diphenhydramine HCl 25 mg 06/17/22 19:17 Diphenhydramine 25 Mg Cap PO Q6H PRN Itching Ephedrine Sulfate 10 mg 06/17/22 11:57 06/17/22 17:22 Ephedrine Sulfate 50 Mg/1 Ml Inj IV 10 mg Q2M PRN Administration Hypotension Hydromorphone HCl 0.5 mg 06/18/22 00:25 06/18/22 01:02 Hydromorphone 1 Mg/1 Ml Inj IV 0.5 mg Q2H PRN Administration Pain , Severe (7-10) Oxytocin/Sodium Chloride 30 units in 500 mls @ 2 mls/hr 06/17/22 12:00 Pitocin/Ns 30 Unit/500ml IV TITR KATHY Protocol Ketorolac Tromethamine 30 mg 06/17/22 19:17 Ketorolac 30 Mg/1 Ml Inj IV 06/22/22 19:16 Q6H PRN Pain, Moderate (4-6) Loperamide HCl 2 mg 06/17/22 11:57 Loperamide 2 Mg Cap PO ONCE PRN give with Hemabate Magnesium Hydroxide 30 ml 06/17/22 19:17 Magnesium Hydroxide (Mom) Oral Liqd Udc PO HS PRN Constipation Mineral Oil 30 ml 06/17/22 11:57 Mineral Oil 30 Ml Oral Liqd PO QHS PRN Constipation Multi-Ingredient Ointment 1 applic 06/17/22 19:17 Lanolin/Zinc/Dimethicone (Lansinoh) 7 Gm TP PRN PRN Sore Nipples Ondansetron HCl 4 mg 06/18/22 00:44 Ondansetron 4 Mg/2 Ml Inj IV Q4H PRN Nausea And Vomiting Oxytocin 10 unit 06/17/22 11:57 Oxytocin 10 Unit/1 Ml Inj IM ONCE PRN Uterine Bleeding Promethazine HCl 25 mg 06/17/22 19:17 Promethazine 25 Mg Rect Supp [place] Q6H PRN Nausea And Vomiting Promethazine HCl 25 mg 06/17/22 19:17 Promethazine 25 Mg Tab PO Q6H PRN Nausea And Vomiting Sodium Chloride 10 ml 06/17/22 20:00 Sodium Chloride 0.9% 10 Ml Flush Syringe IV 06/27/22 23:59 PRN NR Terbutaline Sulfate 0.25 mg 06/17/22 11:57 Terbutaline 1 Mg/1 Ml Inj SUB-Q ONCE PRN Hyperstimulation/Hypertonicity [place]/Glycerin 1 each 06/17/22 19:17 06/18/22 10:01 [place]/ Glycerin Pad TP 1 each PRN PRN Administration Hemorrhoid/cleansing/soothing
[2022-06-18] MEDS ORDERED: SIMETHICONE 80 MG CHEW TAB PO PRN (22:45)
[2022-06-19 01:07] LABS: Basophils % (Auto) 0.1 % (0.0-1.8); Hematocrit 24.3 % (30.3-42.9); Hemoglobin 8.5 gm/dl (10.1-14.3); Mean Corpuscular HGB Conc 35 % (30-34); Mean Corpuscular Volume 85 fl (79-97); Monocytes # (Auto) 1.1 K/mm3 (0.0-0.8); Monocytes % (Auto) 7.9 % (0.0-7.3); Platelet Count 70 K/mm3 (140-440); Red Blood Count 2.84 M/mm3 (3.65-5.03); Red Cell Distribution Width 15.9 % (13.2-15.2)
[2022-06-19 01:17] LABS: INR 0.88 (0.87-1.13)
[2022-06-19 04:52] LABS: Hematocrit 23.1 % (30.3-42.9); Mean Corpuscular HGB Conc 35 % (30-34); Mean Corpuscular Volume 85 fl (79-97); Red Cell Distribution Width 15.8 % (13.2-15.2)
[2022-06-19 04:55] LABS: Platelet Count 74 K/mm3 (140-440)
[2022-06-19 04:59] LABS: BUN/Creatinine Ratio 8; Blood Urea Nitrogen 6 mg/dL (7-17); Calcium 7.9 mg/dL (8.4-10.2); Hemolysis Index 16
--- NOTE | 2022-06-19 10:54 | Progress Note ---
Assessment and Plan - Patient Problems (1) with 39 completed weeks gestation Current Visit: Yes Status: Resolved (2) History of DVT (deep vein thrombosis) Current Visit: Yes Status: Chronic (3) Active labor Current Visit: Yes Status: Resolved (4) Status post vaginal delivery Current Visit: Yes Status: Acute (5) hemorrhage Onset Date: 06/17/22 Current Visit: Yes Status: Resolved Qualifiers: hemorrhage type: third-stage Qualified Code(s): O72.0 - Third- stage hemorrhage Plan to address problem: Stable. Hb 8. Spoke with Production Potter Kathya PAZ and he was aware but of the opinion crystalloid infusions were likely a factor. CBC reordered. Subjective - Subjective Date of service: 06/19/22 Principal diagnosis: Status post vaginal delivery & hemorrhage day 2 Interval history: Primigravida. care in the [facility]. DEACON 06/20/22. Vaginal deivery 06/17/22 was followed by a massive hemorrhage requiringthe activation of massive transfusion protocol. Bleeding finally brought under control with uterine arterial micro emboli. Spent the night in the ICU. 06/19/22 Stable. Alert. No active bleeding. Labs: Hb and Plts trending down. Last H 8.0. Patient reports: appetite normal, voiding normally, pain well controlled, other (Ambulalization authorized this am.) [place]: doing well, in NICU Objective - Vital Signs Latest vital signs: Vital Signs Temp Pulse Pulse Resp BP Pulse Ox 06/19/22 09:00 112 H 10 L 129/83 100 06/19/22 08:00 98.4 F 104 H 99 H 13 123/79 100 06/19/22 07:04 99 H 06/19/22 07:00 99 H 14 123/80 99 06/19/22 06:00 94 H 20 144/91 100 06/19/22 05:00 105 H 12 140/87 100 06/19/22 04:00 98.8 F 95 H 18 142/92 100 06/19/22 03:00 97 H 15 120/81 99 06/19/22 02:00 105 H 18 150/91 100 06/19/22 01:00 101 H 18 134/89 100 06/19/22 00:00 104 H 12 128/82 100 06/18/22 23:28 114 H 11 L 151/87 99 06/18/22 23:27 98.5 F 06/18/22 23:00 101 H 18 151/87 99 06/18/22 22:00 109 H 12 136/86 100 06/18/22 21:00 98 H 10 L 135/84 100 06/18/22 20:00 98.6 F 103 H 12 146/79 99 06/18/22 19:00 101 H 12 125/81 99 06/18/22 18:00 106 H 13 124/79 99 06/18/22 17:50 115 H 14 117/75 100 06/18/22 17:40 121 H 13 117/75 98 06/18/22 17:30 122 H 14 117/75 99 06/18/22 17:20 112 H 12 111/81 100 06/18/22 17:10 111 H 12 111/81 100 06/18/22 17:00 113 H 10 L 111/81 100 06/18/22 16:50 108 H 12 119/74 100 06/18/22 16:40 111 H 14 119/74 100 06/18/22 16:30 111 H 13 119/74 100 06/18/22 16:20 104 H 12 122/80 100 06/18/22 16:10 105 H 12 122/80 100 06/18/22 16:00 98.4 F 102 H 106 H 10 L 122/80 100 06/18/22 15:50 101 H 10 L 129/81 100 06/18/22 15:40 110 H 17 129/81 100 06/18/22 15:30 103 H 13 129/81 100 06/18/22 15:20 105 H 11 L 127/83 100 06/18/22 15:10 107 H 9 L 127/83 100 06/18/22 15:00 105 H 10 L 127/83 100 06/18/22 14:50 106 H 12 115/70 100 06/18/22 14:40 104 H 14 115/70 100 06/18/22 14:30 110 H 16 115/70 100 06/18/22 14:20 107 H 14 116/74 100 06/18/22 14:10 112 H 10 L 116/74 100 06/18/22 14:00 111 H 14 116/74 100 06/18/22 13:50 104 H 12 112/79 100 06/18/22 13:40 108 H 12 112/79 100 06/18/22 13:30 111 H 8 L 112/79 100 06/18/22 13:20 105 H 12 126/73 100 06/18/22 13:10 108 H 11 L 126/73 100 06/18/22 13:00 106 H 16 126/73 100 06/18/22 12:50 111 H 14 118/80 100 06/18/22 12:40 101 H 15 118/80 100 06/18/22 12:30 100 H 16 118/80 100 06/18/22 12:20 102 H 16 123/86 100 06/18/22 12:10 106 H 16 123/86 100 06/18/22 12:00 98.3 F 103 H 12 123/86 06/18/22 11:54 112 H 15 100 06/18/22 11:53 112 H 06/18/22 11:50 109 H 12 115/77 06/18/22 11:40 113 H 12 115/77 100 06/18/22 11:30 109 H 16 115/77 100 06/18/22 11:20 100 H 15 109/74 100 06/18/22 11:10 102 H 15 109/74 100 06/18/22 11:00 105 H 18 109/74 100 Intake and Output 06/18/22 06/19/22 06/19/22 23:59 07:59 15:59 Intake Total 240 240 Output Total 2200 900 200 Balance -1960 -900 40 Intake: Oral 240 240 Output: Urine 2200 900 200 Indwelling Catheter 2200 900 200 Other: Total, Intake Amount 240 240 Total, Output Amount 200 300 200 Voiding Method Indwelling Catheter Indwelling Catheter Indwelling Catheter # Bowel Movements 0 0 0 - Exam Lungs: Present: Normal air movement Abdomen: Present: normal appearance, soft, normal bowel sounds. Absent: tenderness Vulva: both: normal Uterus: Present: normal, firm Extremities: Present: normal Deep Tendon Reflex Grade: Normal +2 Comments: Laboratory Tests 06/17/22 06/17/22 06/17/22 11:40 11:40 11:57 WBC 9.6 RBC 3.01 L Hgb 10.1 Hct 29.3 L MCV 97 MCH 34 H MCHC 35 H RDW 12.5 L Plt Count 155 Lymph % (Auto) 22.4 Levy % (Auto) 7.4 H Eos % (Auto) 0.2 Baso % (Auto) 0.3 Lymph # (Auto) 2.1 Levy # (Auto) 0.7 Eos # (Auto) 0.0 Baso # (Auto) 0.0 Add Manual Diff Total Counted Seg Neutrophils % 69.7 Seg Neuts % (Manual) Band Neutrophils % Lymphocytes % (Manual) Reactive Lymphs % (Man) Monocytes % (Manual) Eosinophils % (Manual) Basophils % (Manual) Metamyelocytes % Myelocytes % Promyelocytes % Blast Cells % Nucleated RBC % Seg Neutrophils # 6.7 Seg Neutrophils # Man Band Neutrophils # Lymphocytes # (Manual) Abs React Lymphs (Man) Monocytes # (Manual) Eosinophils # (Manual) Basophils # (Manual) Metamyelocytes # Myelocytes # Promyelocytes # Blast Cells # WBC Morphology Hypersegmented Neuts Hyposegmented Neuts Hypogranular Neuts Smudge Cells Toxic Granulation Toxic Vacuolation Dohle Bodies Pelger-Huet Anomaly Sage Rods Platelet Estimate Clumped Platelets Plt Clumps, EDTA Large Platelets Giant Platelets Platelet Satelliting Plt Morphology Comment RBC Morphology Dimorphic RBCs Polychromasia Hypochromasia Poikilocytosis Anisocytosis Microcytosis Macrocytosis Spherocytes Pappenheimer Bodies Sickle Cells Target Cells Tear Drop Cells Ovalocytes Helmet Cells [place] Bodies [place] Rings [place] Cells Bite Cells Crenated Cell Elliptocytes Acanthocytes (Spur) Rouleaux Hemoglobin C Crystals Schistocytes Malaria parasites Ck Bodies Hem Pathologist Commnt PT INR APTT Fibrinogen D-Dimer Sodium Potassium Chloride Carbon Dioxide Anion Gap BUN Creatinine Estimated GFR BUN/Creatinine Ratio Glucose Calcium Total Bilirubin AST ALT Alkaline Phosphatase Total Protein Albumin Albumin/Globulin Ratio Urine Color Urine Turbidity Urine pH Ur Specific [place] Urine Protein Urine Glucose (UA) Urine Ketones Urine Blood Urine Nitrite Ur Reducing Substances Urine Bilirubin Urine Ictotest Urine Urobilinogen Ur Leukocyte Esterase Urine WBC (Auto) Urine RBC (Auto) U Epithel Cells (Auto) Urine Bacteria (Auto) Hyaline Casts Urine Mucus Urine Opiates Screen Urine Methadone Screen Ur Barbiturates Screen Ur Phencyclidine Scrn Ur Amphetamines Screen U Benzodiazepines Scrn Urine Cocaine Screen U Marijuana (THC) Screen Drugs of Abuse Note Syphilis IgG/IgM Ab SARS-CoV-2 (PCR) Negative Hep Bs Antigen Rubella IgG Antibody Blood Type O POSITIVE Antibody Screen Negative Crossmatch See Detail 06/17/22 06/17/22 06/17/22 12:09 12:10 12:10 WBC RBC Hgb Hct MCV MCH MCHC RDW Plt Count Lymph % (Auto) [place] % (Auto) Eos % (Auto) Baso % (Auto) Lymph # (Auto) Levy # (Auto) Eos # (Auto) Baso # (Auto) Add Manual Diff Total Counted Seg Neutrophils % Seg Neuts % (Manual) Band Neutrophils % Lymphocytes % (Manual) Reactive Lymphs % (Man) Monocytes % (Manual) Eosinophils % (Manual) Basophils % (Manual) Metamyelocytes % Myelocytes % Promyelocytes % Blast Cells % Nucleated RBC % Seg Neutrophils # Seg Neutrophils # Man Band Neutrophils # Lymphocytes # (Manual) Abs React Lymphs (Man) Monocytes # (Manual) Eosinophils # (Manual) Basophils # (Manual) Metamyelocytes # Myelocytes # Promyelocytes # Blast Cells # WBC Morphology Hypersegmented Neuts Hyposegmented Neuts Hypogranular Neuts Smudge Cells Toxic Granulation Toxic Vacuolation Dohle Bodies Pelger-Huet Anomaly Sage Rods Platelet Estimate Clumped Platelets Plt Clumps, EDTA Large Platelets Giant Platelets Platelet Satelliting Plt Morphology Comment RBC Morphology Dimorphic RBCs Polychromasia Hypochromasia Poikilocytosis Anisocytosis Microcytosis Macrocytosis Spherocytes Pappenheimer Bodies Sickle Cells Target Cells Tear Drop Cells Ovalocytes Helmet Cells [place] Bodies [place] Rings Oz Cells Bite Cells Crenated Cell Elliptocytes Acanthocytes (Spur) Rouleaux Hemoglobin C Crystals Schistocytes Malaria parasites Ck Bodies Hem Pathologist Commnt PT INR APTT Fibrinogen D-Dimer Sodium Potassium Chloride Carbon Dioxide Anion Gap BUN Creatinine Estimated GFR BUN/Creatinine Ratio Glucose Calcium Total Bilirubin AST ALT Alkaline Phosphatase Total Protein Albumin Albumin/Globulin Ratio Urine Color Urine Turbidity Urine pH Ur Specific [place] Urine Protein Urine Glucose (UA) Urine Ketones Urine Blood Urine Nitrite Ur Reducing Substances Urine Bilirubin Urine Ictotest Urine Urobilinogen Ur Leukocyte Esterase Urine WBC (Auto) Urine RBC (Auto) U Epithel Cells (Auto) Urine Bacteria (Auto) Hyaline Casts Urine Mucus Urine Opiates Screen Negative Urine Methadone Screen Negative Ur Barbiturates Screen Negative Ur Phencyclidine Scrn Negative Ur Amphetamines Screen Negative U Benzodiazepines Scrn Negative Urine Cocaine Screen Negative U Marijuana (THC) Screen Negative Drugs of Abuse Note Disclamer Syphilis IgG/IgM Ab SARS-CoV-2 (PCR) Hep Bs Antigen Non-reactive Rubella IgG Antibody Immune Blood Type Antibody Screen Crossmatch 06/17/22 06/17/22 06/17/22 12:10 12:10 17:40 WBC RBC Hgb Hct MCV MCH MCHC RDW Plt Count Lymph % (Auto) Levy % (Auto) Eos % (Auto) Baso % (Auto) Lymph # (Auto) Levy # (Auto) Eos # (Auto) Baso # (Auto) Add Manual Diff Total Counted Seg Neutrophils % Seg Neuts % (Manual) Band Neutrophils % Lymphocytes % (Manual) Reactive Lymphs % (Man) Monocytes % (Manual) Eosinophils % (Manual) Basophils % (Manual) Metamyelocytes % Myelocytes % Promyelocytes % Blast Cells % Nucleated RBC % Seg Neutrophils # Seg Neutrophils # Man Band Neutrophils # Lymphocytes # (Manual) Abs React Lymphs (Man) Monocytes # (Manual) Eosinophils # (Manual) Basophils # (Manual) Metamyelocytes # Myelocytes # Promyelocytes # Blast Cells # WBC Morphology Hypersegmented Neuts Hyposegmented Neuts Hypogranular Neuts Smudge Cells Toxic Granulation Toxic Vacuolation Dohle Bodies Pelger-Huet Anomaly Sage Rods Platelet Estimate Clumped Platelets Plt Clumps, EDTA Large Platelets Giant Platelets Platelet Satelliting Plt Morphology Comment RBC Morphology Dimorphic RBCs Polychromasia Hypochromasia Poikilocytosis Anisocytosis Microcytosis Macrocytosis Spherocytes Pappenheimer Bodies Sickle Cells Target Cells Tear Drop Cells Ovalocytes Helmet Cells [place] Bodies [place] Rings Oz Cells Bite Cells Crenated Cell Elliptocytes Acanthocytes (Spur) Rouleaux Hemoglobin C Crystals Schistocytes Malaria parasites Ck Bodies Hem Pathologist Commnt PT 17.0 H INR 1.23 H APTT 28.3 Fibrinogen 150 L D-Dimer 7013.41 H Sodium Potassium Chloride Carbon Dioxide Anion Gap BUN Creatinine Estimated GFR BUN/Creatinine Ratio Glucose Calcium Total Bilirubin AST ALT Alkaline Phosphatase Total Protein Albumin Albumin/Globulin Ratio Urine Color Straw Urine Turbidity Clear Urine pH 8.0 H Ur Specific [place] 1.005 Urine Protein <15 mg/dl Urine Glucose (UA) Negative Urine Ketones Negative Urine Blood Trace Urine Nitrite Negative Ur Reducing Substances Not Reportable Urine Bilirubin Negative Urine Ictotest Not Reportable Urine Urobilinogen < 2.0 Ur Leukocyte Esterase Small Urine WBC (Auto) 14.0 H Urine RBC (Auto) 5.0 U Epithel Cells (Auto) 15.0 H Urine Bacteria (Auto) 1+ Hyaline Casts 1 Urine Mucus Few Urine Opiates Screen Urine Methadone Screen Ur Barbiturates Screen Ur Phencyclidine Scrn Ur Amphetamines Screen U Benzodiazepines Scrn Urine Cocaine Screen U Marijuana (THC) Screen Drugs of Abuse Note Syphilis IgG/IgM Ab Nonreactive SARS-CoV-2 (PCR) Hep Bs Antigen Rubella IgG Antibody Blood Type Antibody Screen Crossmatch 06/17/22 06/17/22 06/17/22 17:40 22:48 22:48 WBC 19.0 H RBC 4.84 Hgb 14.3 D Hct 42.5 D MCV 88 MCH 30 MCHC 34 RDW 16.4 H Plt Count 64 L Lymph % (Auto) Levy % (Auto) Eos % (Auto) Baso % (Auto) Lymph # (Auto) Levy # (Auto) Eos # (Auto) Baso # (Auto) Add Manual Diff Complete Total Counted 100 Seg Neutrophils % Seg Neuts % (Manual) 89.0 H Band Neutrophils % 4.0 Lymphocytes % (Manual) 3.0 L Reactive Lymphs % (Man) 0 Monocytes % (Manual) 2.0 Eosinophils % (Manual) 0 Basophils % (Manual) 0 Metamyelocytes % 2.0 Myelocytes % 0 Promyelocytes % 0 Blast Cells % 0 Nucleated RBC % Not Reportable Seg Neutrophils # Seg Neutrophils # Man 16.9 H Band Neutrophils # 0.8 Lymphocytes # (Manual) 0.6 L Abs React Lymphs (Man) 0.0 Monocytes # (Manual) 0.4 Eosinophils # (Manual) 0.0 Basophils # (Manual) 0.0 Metamyelocytes # 0.4 Myelocytes # 0.0 Promyelocytes # 0.0 Blast Cells # 0.0 WBC Morphology Not Reportable Hypersegmented Neuts Not Reportable Hyposegmented Neuts Not Reportable Hypogranular Neuts Not Reportable Smudge Cells Not Reportable Toxic Granulation Not Reportable Toxic Vacuolation Not Reportable Dohle Bodies Not Reportable Pelger-Huet Anomaly Not Reportable Sage Rods Not Reportable Platelet Estimate Appears decreased Clumped Platelets Not Reportable Plt Clumps, EDTA Not Reportable Large Platelets Not Reportable Giant Platelets Not Reportable Platelet Satelliting Not Reportable Plt Morphology Comment Not Reportable RBC Morphology Normal Dimorphic RBCs Not Reportable Polychromasia Not Reportable Hypochromasia Not Reportable Poikilocytosis Not Reportable Anisocytosis Not Reportable Microcytosis Not Reportable Macrocytosis Not Reportable Spherocytes Not Reportable Pappenheimer Bodies Not Reportable Sickle Cells Not Reportable Target Cells Not Reportable Tear Drop Cells Not Reportable Ovalocytes Not Reportable Helmet Cells Not Reportable [place] Bodies Not Reportable [place] Rings Not Reportable Oz Cells Not Reportable Bite Cells Not Reportable Crenated Cell Not Reportable Elliptocytes Not Reportable Acanthocytes (Spur) Not Reportable Rouleaux Not Reportable Hemoglobin C Crystals Not Reportable Schistocytes Not Reportable Malaria parasites Not Reportable Ck Bodies Not Reportable Hem Pathologist Commnt No PT 17.1 H INR 1.24 H APTT 28.4 Fibrinogen 135 L* D-Dimer Sodium 133 L Potassium 3.3 L Chloride 101.9 Carbon Dioxide 14 L Anion Gap 20 BUN 7 Creatinine 0.7 Estimated GFR > 60 BUN/Creatinine Ratio 10 Glucose 120 H Calcium 7.0 L Total Bilirubin < 0.20 AST 13 ALT < 5 L Alkaline Phosphatase 71 Total Protein 4.0 L Albumin 2.2 L Albumin/Globulin Ratio 1.2 Urine Color Urine Turbidity Urine pH Ur Specific [place] Urine Protein Urine Glucose (UA) Urine Ketones Urine Blood Urine Nitrite Ur Reducing Substances Urine Bilirubin Urine Ictotest Urine Urobilinogen Ur Leukocyte Esterase Urine WBC (Auto) Urine RBC (Auto) U Epithel Cells (Auto) Urine Bacteria (Auto) Hyaline Casts Urine Mucus Urine Opiates Screen Urine Methadone Screen Ur Barbiturates Screen Ur Phencyclidine Scrn Ur Amphetamines Screen U Benzodiazepines Scrn Urine Cocaine Screen U Marijuana (THC) Screen Drugs of Abuse Note Syphilis IgG/IgM Ab SARS-CoV-2 (PCR) Hep Bs Antigen Rubella IgG Antibody Blood Type Antibody Screen Crossmatch 06/17/22 06/17/22 06/18/22 22:48 Unknown 05:58 WBC 9.1 14.3 H RBC 1.73 L 3.91 Hgb 5.9 L* D 11.3 D Hct 17.5 L* D 34.4 D MCV 101 H 88 MCH 34 H 29 MCHC 33 33 RDW 12.6 L 15.9 H Plt Count 143 66 L Lymph % (Auto) 14.0 9.8 L Levy % (Auto) 3.8 5.9 Eos % (Auto) 0.0 0.0 Baso % (Auto) 0.2 0.2 Lymph # (Auto) 1.3 1.4 Levy # (Auto) 0.3 0.9 H Eos # (Auto) 0.0 0.0 Baso # (Auto) 0.0 0.0 Add Manual Diff Total Counted Seg Neutrophils % 82.0 H 84.1 H Seg Neuts % (Manual) Band Neutrophils % Lymphocytes % (Manual) Reactive Lymphs % (Man) Monocytes % (Manual) Eosinophils % (Manual) Basophils % (Manual) Metamyelocytes % Myelocytes % Promyelocytes % Blast Cells % Nucleated RBC % Seg Neutrophils # 7.5 12.0 H Seg Neutrophils # Man Band Neutrophils # Lymphocytes # (Manual) Abs React Lymphs (Man) Monocytes # (Manual) Eosinophils # (Manual) Basophils # (Manual) Metamyelocytes # Myelocytes # Promyelocytes # Blast Cells # WBC Morphology Hypersegmented Neuts Hyposegmented Neuts Hypogranular Neuts Smudge Cells Toxic Granulation Toxic Vacuolation Dohle Bodies Pelger-Huet Anomaly Sage Rods Platelet Estimate Clumped Platelets Plt Clumps, EDTA Large Platelets Giant Platelets Platelet Satelliting Plt Morphology Comment RBC Morphology Dimorphic RBCs Polychromasia Hypochromasia Poikilocytosis Anisocytosis Microcytosis Macrocytosis Spherocytes Pappenheimer Bodies Sickle Cells Target Cells Tear Drop Cells Ovalocytes Helmet Cells [place] Bodies [place] Rings Oz Cells Bite Cells Crenated Cell Elliptocytes Acanthocytes (Spur) Rouleaux Hemoglobin C Crystals Schistocytes Malaria parasites Ck Bodies Hem Pathologist Commnt PT INR APTT Fibrinogen D-Dimer Sodium 133 L Potassium 4.3 D Chloride 106.9 Carbon Dioxide 14 L Anion Gap 16 BUN 9 Creatinine 0.9 Estimated GFR > 60 BUN/Creatinine Ratio 10 Glucose 184 H Calcium 6.2 L Total Bilirubin 0.20 AST 21 ALT 6 L Alkaline Phosphatase 55 Total Protein 3.8 L Albumin 2.4 L Albumin/Globulin Ratio 1.7 Urine Color Urine Turbidity Urine pH Ur Specific [place] Urine Protein Urine Glucose (UA) Urine Ketones Urine Blood Urine Nitrite Ur Reducing Substances Urine Bilirubin Urine Ictotest Urine Urobilinogen Ur Leukocyte Esterase Urine WBC (Auto) Urine RBC (Auto) U Epithel Cells (Auto) Urine Bacteria (Auto) Hyaline Casts Urine Mucus Urine Opiates Screen Urine Methadone Screen Ur Barbiturates Screen Ur Phencyclidine Scrn Ur Amphetamines Screen U Benzodiazepines Scrn Urine Cocaine Screen U Marijuana (THC) Screen Drugs of Abuse Note Syphilis IgG/IgM Ab SARS-CoV-2 (PCR) Hep Bs Antigen Rubella IgG Antibody Blood Type Antibody Screen Crossmatch 06/18/22 06/18/22 06/18/22 05:58 05:58 12:54 WBC 12.7 H RBC 3.05 L Hgb 9.1 L Hct 26.6 L D MCV 87 MCH 30 MCHC 34 RDW 15.7 H Plt Count 67 L Lymph % (Auto) 16.3 Levy % (Auto) 10.1 H Eos % (Auto) 0.0 Baso % (Auto) 0.1 Lymph # (Auto) 2.1 Levy # (Auto) 1.3 H Eos # (Auto) 0.0 Baso # (Auto) 0.0 Add Manual Diff Total Counted Seg Neutrophils % 73.5 H Seg Neuts % (Manual) Band Neutrophils % Lymphocytes % (Manual) Reactive Lymphs % (Man) Monocytes % (Manual) Eosinophils % (Manual) Basophils % (Manual) Metamyelocytes % Myelocytes % Promyelocytes % Blast Cells % Nucleated RBC % Seg Neutrophils # 9.3 H Seg Neutrophils # Man Band Neutrophils # Lymphocytes # (Manual) Abs React Lymphs (Man) Monocytes # (Manual) Eosinophils # (Manual) Basophils # (Manual) Metamyelocytes # Myelocytes # Promyelocytes # Blast Cells # WBC Morphology Hypersegmented Neuts Hyposegmented Neuts Hypogranular Neuts Smudge Cells Toxic Granulation Toxic Vacuolation Dohle Bodies Pelger-Huet Anomaly Sage Rods Platelet Estimate Clumped Platelets Plt Clumps, EDTA Large Platelets Giant Platelets Platelet Satelliting Plt Morphology Comment RBC Morphology Dimorphic RBCs Polychromasia Hypochromasia Poikilocytosis Anisocytosis Microcytosis Macrocytosis Spherocytes Pappenheimer Bodies Sickle Cells Target Cells Tear Drop Cells Ovalocytes Helmet Cells [place] Bodies [place] Rings Oz Cells Bite Cells Crenated Cell Elliptocytes Acanthocytes (Spur) Rouleaux Hemoglobin C Crystals Schistocytes Malaria parasites Ck Bodies Hem Pathologist Commnt PT 14.8 INR 1.04 APTT Fibrinogen 381 D-Dimer Sodium 133 L Potassium 4.3 Chloride 104.8 Carbon Dioxide 19 L Anion Gap 14 BUN 8 Creatinine 1.0 Estimated GFR > 60 BUN/Creatinine Ratio 8 Glucose 113 H Calcium 7.0 L Total Bilirubin 0.20 AST 27 ALT 8 Alkaline Phosphatase 61 Total Protein 4.4 L Albumin 2.8 L Albumin/Globulin Ratio 1.8 Urine Color Urine Turbidity Urine pH Ur Specific [place] Urine Protein Urine Glucose (UA) Urine Ketones Urine Blood Urine Nitrite Ur Reducing Substances Urine Bilirubin Urine Ictotest Urine Urobilinogen Ur Leukocyte Esterase Urine WBC (Auto) Urine RBC (Auto) U Epithel Cells (Auto) Urine Bacteria (Auto) Hyaline Casts Urine Mucus Urine Opiates Screen Urine Methadone Screen Ur Barbiturates Screen Ur Phencyclidine Scrn Ur Amphetamines Screen U Benzodiazepines Scrn Urine Cocaine Screen U Marijuana (THC) Screen Drugs of Abuse Note Syphilis IgG/IgM Ab SARS-CoV-2 (PCR) Hep Bs Antigen Rubella IgG Antibody Blood Type Antibody Screen Crossmatch 06/18/22 06/19/22 06/19/22 12:54 00:01 00:01 WBC 14.6 H RBC 2.84 L Hgb 8.5 L Hct 24.3 L MCV 85 MCH 30 MCHC 35 H RDW 15.9 H Plt Count 70 L Lymph % (Auto) 14.0 Levy % (Auto) 7.9 H Eos % (Auto) 0.0 Baso % (Auto) 0.1 Lymph # (Auto) 2.0 Levy # (Auto) 1.1 H Eos # (Auto) 0.0 Baso # (Auto) 0.0 Add Manual Diff Total Counted Seg Neutrophils % 78.0 H Seg Neuts % (Manual) Band Neutrophils % Lymphocytes % (Manual) Reactive Lymphs % (Man) Monocytes % (Manual) Eosinophils % (Manual) Basophils % (Manual) Metamyelocytes % Myelocytes % Promyelocytes % Blast Cells % Nucleated RBC % Seg Neutrophils # 11.4 H Seg Neutrophils # Man Band Neutrophils # Lymphocytes # (Manual) Abs React Lymphs (Man) Monocytes # (Manual) Eosinophils # (Manual) Basophils # (Manual) Metamyelocytes # Myelocytes # Promyelocytes # Blast Cells # WBC Morphology Hypersegmented Neuts Hyposegmented Neuts Hypogranular Neuts Smudge Cells Toxic Granulation Toxic Vacuolation Dohle Bodies Pelger-Huet Anomaly Sage Rods Platelet Estimate Clumped Platelets Plt Clumps, EDTA Large Platelets Giant Platelets Platelet Satelliting Plt Morphology Comment RBC Morphology Dimorphic RBCs Polychromasia Hypochromasia Poikilocytosis Anisocytosis Microcytosis Macrocytosis Spherocytes Pappenheimer Bodies Sickle Cells Target Cells Tear Drop Cells Ovalocytes Helmet Cells [place] Bodies [place] Rings Oz Cells Bite Cells Crenated Cell Elliptocytes Acanthocytes (Spur) Rouleaux Hemoglobin C Crystals Schistocytes Malaria parasites Ck Bodies Hem Pathologist Commnt PT 14.3 12.9 INR 1.00 0.88 APTT Fibrinogen 375 387 D-Dimer Sodium Potassium Chloride Carbon Dioxide Anion Gap BUN Creatinine Estimated GFR BUN/Creatinine Ratio Glucose Calcium Total Bilirubin AST ALT Alkaline Phosphatase Total Protein Albumin Albumin/Globulin Ratio Urine Color Urine Turbidity Urine pH Ur Specific [place] Urine Protein Urine Glucose (UA) Urine Ketones Urine Blood Urine Nitrite Ur Reducing Substances Urine Bilirubin Urine Ictotest Urine Urobilinogen Ur Leukocyte Esterase Urine WBC (Auto) Urine RBC (Auto) U Epithel Cells (Auto) Urine Bacteria (Auto) Hyaline Casts Urine Mucus Urine Opiates Screen Urine Methadone Screen Ur Barbiturates Screen Ur Phencyclidine Scrn Ur Amphetamines Screen U Benzodiazepines Scrn Urine Cocaine Screen U Marijuana (THC) Screen Drugs of Abuse Note Syphilis IgG/IgM Ab SARS-CoV-2 (PCR) Hep Bs Antigen Rubella IgG Antibody Blood Type Antibody Screen Crossmatch 06/19/22 06/19/22 04:08 04:08 WBC 14.0 H RBC 2.70 L Hgb 8.0 L Hct 23.1 L MCV 85 MCH 30 MCHC 35 H RDW 15.8 H Plt Count 74 L Lymph % (Auto) [place] % (Auto) Eos % (Auto) Baso % (Auto) Lymph # (Auto) Levy # (Auto) Eos # (Auto) Baso # (Auto) Add Manual Diff Total Counted Seg Neutrophils % Seg Neuts % (Manual) Band Neutrophils % Lymphocytes % (Manual) Reactive Lymphs % (Man) Monocytes % (Manual) Eosinophils % (Manual) Basophils % (Manual) Metamyelocytes % Myelocytes % Promyelocytes % Blast Cells % Nucleated RBC % Seg Neutrophils # Seg Neutrophils # Man Band Neutrophils # Lymphocytes # (Manual) Abs React Lymphs (Man) Monocytes # (Manual) Eosinophils # (Manual) Basophils # (Manual) Metamyelocytes # Myelocytes # Promyelocytes # Blast Cells # WBC Morphology Hypersegmented Neuts Hyposegmented Neuts Hypogranular Neuts Smudge Cells Toxic Granulation Toxic Vacuolation Dohle Bodies Pelger-Huet Anomaly Sage Rods Platelet Estimate Clumped Platelets Plt Clumps, EDTA Large Platelets Giant Platelets Platelet Satelliting Plt Morphology Comment RBC Morphology Dimorphic RBCs Polychromasia Hypochromasia Poikilocytosis Anisocytosis Microcytosis Macrocytosis Spherocytes Pappenheimer Bodies Sickle Cells Target Cells Tear Drop Cells Ovalocytes Helmet Cells [place] Bodies [place] Rings [place] Cells Bite Cells Crenated Cell Elliptocytes Acanthocytes (Spur) Rouleaux Hemoglobin C Crystals Schistocytes Malaria parasites Ck Bodies Hem Pathologist Commnt PT INR APTT Fibrinogen D-Dimer Sodium 136 L Potassium 4.0 Chloride 105.1 Carbon Dioxide 21 L Anion Gap 14 BUN 6 L Creatinine 0.8 Estimated GFR > 60 BUN/Creatinine Ratio 8 Glucose 87 Calcium 7.9 L Total Bilirubin AST ALT Alkaline Phosphatase Total Protein Albumin Albumin/Globulin Ratio Urine Color Urine Turbidity Urine pH Ur Specific [place] Urine Protein Urine Glucose (UA) Urine Ketones Urine Blood Urine Nitrite Ur Reducing Substances Urine Bilirubin Urine Ictotest Urine Urobilinogen Ur Leukocyte Esterase Urine WBC (Auto) Urine RBC (Auto) U Epithel Cells (Auto) Urine Bacteria (Auto) Hyaline Casts Urine Mucus Urine Opiates Screen Urine Methadone Screen Ur Barbiturates Screen Ur Phencyclidine Scrn Ur Amphetamines Screen U Benzodiazepines Scrn Urine Cocaine Screen U Marijuana (THC) Screen Drugs of Abuse Note Syphilis IgG/IgM Ab SARS-CoV-2 (PCR) Hep Bs Antigen Rubella IgG Antibody Blood Type Antibody Screen Crossmatch - Labs Labs: Abnormal lab results 06/17/22 06/18/22 06/19/22 Range/Units 11:40 12:54 00:01 WBC 12.7 H 14.6 H (4.5-11.0) K/mm3 RBC 3.05 L 2.84 L (3.65-5.03) M/mm3 Hgb 9.1 L 8.5 L (10.1-14.3) gm/dl Hct 26.6 L D 24.3 L (30.3-42.9) % MCHC 35 H (30-34) % RDW 15.7 H 15.9 H (13.2-15.2) % Plt Count 67 L 70 L (140-440) K/mm3 Levy % (Auto) 10.1 H 7.9 H (0.0-7.3) % Levy # (Auto) 1.3 H 1.1 H (0.0-0.8) K/mm3 Seg Neutrophils % 73.5 H 78.0 H (40.0-70.0) % Seg Neutrophils # 9.3 H 11.4 H (1.8-7.7) K/mm3 Sodium (137-145) mmol/L Carbon Dioxide (22-30) mmol/L BUN (7-17) mg/dL Calcium (8.4-10.2) mg/dL Crossmatch See Detail 06/19/22 06/19/22 Range/Units 04:08 04:08 WBC 14.0 H (4.5-11.0) K/mm3 RBC 2.70 L (3.65-5.03) M/mm3 Hgb 8.0 L (10.1-14.3) gm/dl Hct 23.1 L (30.3-42.9) % MCHC 35 H (30-34) % RDW 15.8 H (13.2-15.2) % Plt Count 74 L (140-440) K/mm3 Levy % (Auto) (0.0-7.3) % Levy # (Auto) (0.0-0.8) K/mm3 Seg Neutrophils % (40.0-70.0) % Seg Neutrophils # (1.8-7.7) K/mm3 Sodium 136 L (137-145) mmol/L Carbon Dioxide 21 L (22-30) mmol/L BUN 6 L (7-17) mg/dL Calcium 7.9 L (8.4-10.2) mg/dL Crossmatch Laboratory Tests 06/17/22 06/17/22 06/17/22 11:40 11:40 11:57 WBC 9.6 RBC 3.01 L Hgb 10.1 Hct 29.3 L MCV 97 MCH 34 H MCHC 35 H RDW 12.5 L Plt Count 155 Lymph % (Auto) 22.4 Levy % (Auto) 7.4 H Eos % (Auto) 0.2 Baso % (Auto) 0.3 Lymph # (Auto) 2.1 Levy # (Auto) 0.7 Eos # (Auto) 0.0 Baso # (Auto) 0.0 Add Manual Diff Total Counted Seg Neutrophils % 69.7 Seg Neuts % (Manual) Band Neutrophils % Lymphocytes % (Manual) Reactive Lymphs % (Man) Monocytes % (Manual) Eosinophils % (Manual) Basophils % (Manual) Metamyelocytes % Myelocytes % Promyelocytes % Blast Cells % Nucleated RBC % Seg Neutrophils # 6.7 Seg Neutrophils # Man Band Neutrophils # Lymphocytes # (Manual) Abs React Lymphs (Man) Monocytes # (Manual) Eosinophils # (Manual) Basophils # (Manual) Metamyelocytes # Myelocytes # Promyelocytes # Blast Cells # WBC Morphology Hypersegmented Neuts Hyposegmented Neuts Hypogranular Neuts Smudge Cells Toxic Granulation Toxic Vacuolation Dohle Bodies Pelger-Huet Anomaly Sage Rods Platelet Estimate Clumped Platelets Plt Clumps, EDTA Large Platelets Giant Platelets Platelet Satelliting Plt Morphology Comment RBC Morphology Dimorphic RBCs Polychromasia Hypochromasia Poikilocytosis Anisocytosis Microcytosis Macrocytosis Spherocytes Pappenheimer Bodies Sickle Cells Target Cells Tear Drop Cells Ovalocytes Helmet Cells [place] Bodies [place] Rings Oz Cells Bite Cells Crenated Cell Elliptocytes Acanthocytes (Spur) Rouleaux Hemoglobin C Crystals Schistocytes Malaria parasites Ck Bodies Hem Pathologist Commnt PT INR APTT Fibrinogen D-Dimer Sodium Potassium Chloride Carbon Dioxide Anion Gap BUN Creatinine Estimated GFR BUN/Creatinine Ratio Glucose Calcium Total Bilirubin AST ALT Alkaline Phosphatase Total Protein Albumin Albumin/Globulin Ratio Urine Color Urine Turbidity Urine pH Ur Specific [place] Urine Protein Urine Glucose (UA) Urine Ketones Urine Blood Urine Nitrite Ur Reducing Substances Urine Bilirubin Urine Ictotest Urine Urobilinogen Ur Leukocyte Esterase Urine WBC (Auto) Urine RBC (Auto) U Epithel Cells (Auto) Urine Bacteria (Auto) Hyaline Casts Urine Mucus Urine Opiates Screen Urine Methadone Screen Ur Barbiturates Screen Ur Phencyclidine Scrn Ur Amphetamines Screen U Benzodiazepines Scrn Urine Cocaine Screen U Marijuana (THC) Screen Drugs of Abuse Note Syphilis IgG/IgM Ab SARS-CoV-2 (PCR) Negative Hep Bs Antigen Rubella IgG Antibody Blood Type O POSITIVE Antibody Screen Negative Crossmatch See Detail 06/17/22 06/17/22 06/17/22 12:09 12:10 12:10 WBC RBC Hgb Hct MCV MCH MCHC RDW Plt Count Lymph % (Auto) Levy % (Auto) Eos % (Auto) Baso % (Auto) Lymph # (Auto) Levy # (Auto) Eos # (Auto) Baso # (Auto) Add Manual Diff Total Counted Seg Neutrophils % Seg Neuts % (Manual) Band Neutrophils % Lymphocytes % (Manual) Reactive Lymphs % (Man) Monocytes % (Manual) Eosinophils % (Manual) Basophils % (Manual) Metamyelocytes % Myelocytes % Promyelocytes % Blast Cells % Nucleated RBC % Seg Neutrophils # Seg Neutrophils # Man Band Neutrophils # Lymphocytes # (Manual) Abs React Lymphs (Man) Monocytes # (Manual) Eosinophils # (Manual) Basophils # (Manual) Metamyelocytes # Myelocytes # Promyelocytes # Blast Cells # WBC Morphology Hypersegmented Neuts Hyposegmented Neuts Hypogranular Neuts Smudge Cells Toxic Granulation Toxic Vacuolation Dohle Bodies Pelger-Huet Anomaly Sage Rods Platelet Estimate Clumped Platelets Plt Clumps, EDTA Large Platelets Giant Platelets Platelet Satelliting Plt Morphology Comment RBC Morphology Dimorphic RBCs Polychromasia Hypochromasia Poikilocytosis Anisocytosis Microcytosis Macrocytosis Spherocytes Pappenheimer Bodies Sickle Cells Target Cells Tear Drop Cells Ovalocytes Helmet Cells [place] Bodies [place] Rings [place] Cells Bite Cells Crenated Cell Elliptocytes Acanthocytes (Spur) Rouleaux Hemoglobin C Crystals Schistocytes Malaria parasites Ck Bodies Hem Pathologist Commnt PT INR APTT Fibrinogen D-Dimer Sodium Potassium Chloride Carbon Dioxide Anion Gap BUN Creatinine Estimated GFR BUN/Creatinine Ratio Glucose Calcium Total Bilirubin AST ALT Alkaline Phosphatase Total Protein Albumin Albumin/Globulin Ratio Urine Color Urine Turbidity Urine pH Ur Specific [place] Urine Protein Urine Glucose (UA) Urine Ketones Urine Blood Urine Nitrite Ur Reducing Substances Urine Bilirubin Urine Ictotest Urine Urobilinogen Ur Leukocyte Esterase Urine WBC (Auto) Urine RBC (Auto) U Epithel Cells (Auto) Urine Bacteria (Auto) Hyaline Casts Urine Mucus Urine Opiates Screen Negative Urine Methadone Screen Negative Ur Barbiturates Screen Negative Ur Phencyclidine Scrn Negative Ur Amphetamines Screen Negative U Benzodiazepines Scrn Negative Urine Cocaine Screen Negative U Marijuana (THC) Screen Negative Drugs of Abuse Note Disclamer Syphilis IgG/IgM Ab SARS-CoV-2 (PCR) Hep Bs Antigen Non-reactive Rubella IgG Antibody Immune Blood Type Antibody Screen Crossmatch 07/26/22 07/26/22 07/26/22 12:10 12:10 17:40 WBC RBC Hgb Hct MCV MCH MCHC RDW Plt Count Lymph % (Auto) Levy % (Auto) Eos % (Auto) Baso % (Auto) Lymph # (Auto) Levy # (Auto) Eos # (Auto) Baso # (Auto) Add Manual Diff Total Counted Seg Neutrophils % Seg Neuts % (Manual) Band Neutrophils % Lymphocytes % (Manual) Reactive Lymphs % (Man) Monocytes % (Manual) Eosinophils % (Manual) Basophils % (Manual) Metamyelocytes % Myelocytes % Promyelocytes % Blast Cells % Nucleated RBC % Seg Neutrophils # Seg Neutrophils # Man Band Neutrophils # Lymphocytes # (Manual) Abs React Lymphs (Man) Monocytes # (Manual) Eosinophils # (Manual) Basophils # (Manual) Metamyelocytes # Myelocytes # Promyelocytes # Blast Cells # WBC Morphology Hypersegmented Neuts Hyposegmented Neuts Hypogranular Neuts Smudge Cells Toxic Granulation Toxic Vacuolation Dohle Bodies Pelger-Huet Anomaly Sage Rods Platelet Estimate Clumped Platelets Plt Clumps, EDTA Large Platelets Giant Platelets Platelet Satelliting Plt Morphology Comment RBC Morphology Dimorphic RBCs Polychromasia Hypochromasia Poikilocytosis Anisocytosis Microcytosis Macrocytosis Spherocytes Pappenheimer Bodies Sickle Cells Target Cells Tear Drop Cells Ovalocytes Helmet Cells [place] Bodies [place] Rings Oz Cells Bite Cells Crenated Cell Elliptocytes Acanthocytes (Spur) Rouleaux Hemoglobin C Crystals Schistocytes Malaria parasites Ck Bodies Hem Pathologist Commnt PT 17.0 H INR 1.23 H APTT 28.3 Fibrinogen 150 L D-Dimer 7013.41 H Sodium Potassium Chloride Carbon Dioxide Anion Gap BUN Creatinine Estimated GFR BUN/Creatinine Ratio Glucose Calcium Total Bilirubin AST ALT Alkaline Phosphatase Total Protein Albumin Albumin/Globulin Ratio Urine Color Straw Urine Turbidity Clear Urine pH 8.0 H Ur Specific [place] 1.005 Urine Protein <15 mg/dl Urine Glucose (UA) Negative Urine Ketones Negative Urine Blood Trace Urine Nitrite Negative Ur Reducing Substances Not Reportable Urine Bilirubin Negative Urine Ictotest Not Reportable Urine Urobilinogen < 2.0 Ur Leukocyte Esterase Small Urine WBC (Auto) 14.0 H Urine RBC (Auto) 5.0 U Epithel Cells (Auto) 15.0 H Urine Bacteria (Auto) 1+ Hyaline Casts 1 Urine Mucus Few Urine Opiates Screen Urine Methadone Screen Ur Barbiturates Screen Ur Phencyclidine Scrn Ur Amphetamines Screen U Benzodiazepines Scrn Urine Cocaine Screen U Marijuana (THC) Screen Drugs of Abuse Note Syphilis IgG/IgM Ab Nonreactive SARS-CoV-2 (PCR) Hep Bs Antigen Rubella IgG Antibody Blood Type Antibody Screen Crossmatch 06/17/22 06/17/22 06/17/22 17:40 22:48 22:48 WBC 19.0 H RBC 4.84 Hgb 14.3 D Hct 42.5 D MCV 88 MCH 30 MCHC 34 RDW 16.4 H Plt Count 64 L Lymph % (Auto) Levy % (Auto) Eos % (Auto) Baso % (Auto) Lymph # (Auto) Levy # (Auto) Eos # (Auto) Baso # (Auto) Add Manual Diff Complete Total Counted 100 Seg Neutrophils % Seg Neuts % (Manual) 89.0 H Band Neutrophils % 4.0 Lymphocytes % (Manual) 3.0 L Reactive Lymphs % (Man) 0 Monocytes % (Manual) 2.0 Eosinophils % (Manual) 0 Basophils % (Manual) 0 Metamyelocytes % 2.0 Myelocytes % 0 Promyelocytes % 0 Blast Cells % 0 Nucleated RBC % Not Reportable Seg Neutrophils # Seg Neutrophils # Man 16.9 H Band Neutrophils # 0.8 Lymphocytes # (Manual) 0.6 L Abs React Lymphs (Man) 0.0 Monocytes # (Manual) 0.4 Eosinophils # (Manual) 0.0 Basophils # (Manual) 0.0 Metamyelocytes # 0.4 Myelocytes # 0.0 Promyelocytes # 0.0 Blast Cells # 0.0 WBC Morphology Not Reportable Hypersegmented Neuts Not Reportable Hyposegmented Neuts Not Reportable Hypogranular Neuts Not Reportable Smudge Cells Not Reportable Toxic Granulation Not Reportable Toxic Vacuolation Not Reportable Dohle Bodies Not Reportable Pelger-Huet Anomaly Not Reportable Sage Rods Not Reportable Platelet Estimate Appears decreased Clumped Platelets Not Reportable Plt Clumps, EDTA Not Reportable Large Platelets Not Reportable Giant Platelets Not Reportable Platelet Satelliting Not Reportable Plt Morphology Comment Not Reportable RBC Morphology Normal Dimorphic RBCs Not Reportable Polychromasia Not Reportable Hypochromasia Not Reportable Poikilocytosis Not Reportable Anisocytosis Not Reportable Microcytosis Not Reportable Macrocytosis Not Reportable Spherocytes Not Reportable Pappenheimer Bodies Not Reportable Sickle Cells Not Reportable Target Cells Not Reportable Tear Drop Cells Not Reportable Ovalocytes Not Reportable Helmet Cells Not Reportable [place] Bodies Not Reportable [place] Rings Not Reportable Oz Cells Not Reportable Bite Cells Not Reportable Crenated Cell Not Reportable Elliptocytes Not Reportable Acanthocytes (Spur) Not Reportable Rouleaux Not Reportable Hemoglobin C Crystals Not Reportable Schistocytes Not Reportable Malaria parasites Not Reportable Ck Bodies Not Reportable Hem Pathologist Commnt No PT 17.1 H INR 1.24 H APTT 28.4 Fibrinogen 135 L* D-Dimer Sodium 133 L Potassium 3.3 L Chloride 101.9 Carbon Dioxide 14 L Anion Gap 20 BUN 7 Creatinine 0.7 Estimated GFR > 60 BUN/Creatinine Ratio 10 Glucose 120 H Calcium 7.0 L Total Bilirubin < 0.20 AST 13 ALT < 5 L Alkaline Phosphatase 71 Total Protein 4.0 L Albumin 2.2 L Albumin/Globulin Ratio 1.2 Urine Color Urine Turbidity Urine pH Ur Specific [place] Urine Protein Urine Glucose (UA) Urine Ketones Urine Blood Urine Nitrite Ur Reducing Substances Urine Bilirubin Urine Ictotest Urine Urobilinogen Ur Leukocyte Esterase Urine WBC (Auto) Urine RBC (Auto) U Epithel Cells (Auto) Urine Bacteria (Auto) Hyaline Casts Urine Mucus Urine Opiates Screen Urine Methadone Screen Ur Barbiturates Screen Ur Phencyclidine Scrn Ur Amphetamines Screen U Benzodiazepines Scrn Urine Cocaine Screen U Marijuana (THC) Screen Drugs of Abuse Note Syphilis IgG/IgM Ab SARS-CoV-2 (PCR) Hep Bs Antigen Rubella IgG Antibody Blood Type Antibody Screen Crossmatch 06/17/22 06/17/22 06/18/22 22:48 Unknown 05:58 WBC 9.1 14.3 H RBC 1.73 L 3.91 Hgb 5.9 L* D 11.3 D Hct 17.5 L* D 34.4 D MCV 101 H 88 MCH 34 H 29 MCHC 33 33 RDW 12.6 L 15.9 H Plt Count 143 66 L Lymph % (Auto) 14.0 9.8 L Levy % (Auto) 3.8 5.9 Eos % (Auto) 0.0 0.0 Baso % (Auto) 0.2 0.2 Lymph # (Auto) 1.3 1.4 Levy # (Auto) 0.3 0.9 H Eos # (Auto) 0.0 0.0 Baso # (Auto) 0.0 0.0 Add Manual Diff Total Counted Seg Neutrophils % 82.0 H 84.1 H Seg Neuts % (Manual) Band Neutrophils % Lymphocytes % (Manual) Reactive Lymphs % (Man) Monocytes % (Manual) Eosinophils % (Manual) Basophils % (Manual) Metamyelocytes % Myelocytes % Promyelocytes % Blast Cells % Nucleated RBC % Seg Neutrophils # 7.5 12.0 H Seg Neutrophils # Man Band Neutrophils # Lymphocytes # (Manual) Abs React Lymphs (Man) Monocytes # (Manual) Eosinophils # (Manual) Basophils # (Manual) Metamyelocytes # Myelocytes # Promyelocytes # Blast Cells # WBC Morphology Hypersegmented Neuts Hyposegmented Neuts Hypogranular Neuts Smudge Cells Toxic Granulation Toxic Vacuolation Dohle Bodies Pelger-Huet Anomaly Sage Rods Platelet Estimate Clumped Platelets Plt Clumps, EDTA Large Platelets Giant Platelets Platelet Satelliting Plt Morphology Comment RBC Morphology Dimorphic RBCs Polychromasia Hypochromasia Poikilocytosis Anisocytosis Microcytosis Macrocytosis Spherocytes Pappenheimer Bodies Sickle Cells Target Cells Tear Drop Cells Ovalocytes Helmet Cells [place] Bodies [place] Rings Oz Cells Bite Cells Crenated Cell Elliptocytes Acanthocytes (Spur) Rouleaux Hemoglobin C Crystals Schistocytes Malaria parasites Ck Bodies Hem Pathologist Commnt PT INR APTT Fibrinogen D-Dimer Sodium 133 L Potassium 4.3 D Chloride 106.9 Carbon Dioxide 14 L Anion Gap 16 BUN 9 Creatinine 0.9 Estimated GFR > 60 BUN/Creatinine Ratio 10 Glucose 184 H Calcium 6.2 L Total Bilirubin 0.20 AST 21 ALT 6 L Alkaline Phosphatase 55 Total Protein 3.8 L Albumin 2.4 L Albumin/Globulin Ratio 1.7 Urine Color Urine Turbidity Urine pH Ur Specific [place] Urine Protein Urine Glucose (UA) Urine Ketones Urine Blood Urine Nitrite Ur Reducing Substances Urine Bilirubin Urine Ictotest Urine Urobilinogen Ur Leukocyte Esterase Urine WBC (Auto) Urine RBC (Auto) U Epithel Cells (Auto) Urine Bacteria (Auto) Hyaline Casts Urine Mucus Urine Opiates Screen Urine Methadone Screen Ur Barbiturates Screen Ur Phencyclidine Scrn Ur Amphetamines Screen U Benzodiazepines Scrn Urine Cocaine Screen U Marijuana (THC) Screen Drugs of Abuse Note Syphilis IgG/IgM Ab SARS-CoV-2 (PCR) Hep Bs Antigen Rubella IgG Antibody Blood Type Antibody Screen Crossmatch 06/18/22 06/18/22 06/18/22 05:58 05:58 12:54 WBC 12.7 H RBC 3.05 L Hgb 9.1 L Hct 26.6 L D MCV 87 MCH 30 MCHC 34 RDW 15.7 H Plt Count 67 L Lymph % (Auto) 16.3 Levy % (Auto) 10.1 H Eos % (Auto) 0.0 Baso % (Auto) 0.1 Lymph # (Auto) 2.1 Levy # (Auto) 1.3 H Eos # (Auto) 0.0 Baso # (Auto) 0.0 Add Manual Diff Total Counted Seg Neutrophils % 73.5 H Seg Neuts % (Manual) Band Neutrophils % Lymphocytes % (Manual) Reactive Lymphs % (Man) Monocytes % (Manual) Eosinophils % (Manual) Basophils % (Manual) Metamyelocytes % Myelocytes % Promyelocytes % Blast Cells % Nucleated RBC % Seg Neutrophils # 9.3 H Seg Neutrophils # Man Band Neutrophils # Lymphocytes # (Manual) Abs React Lymphs (Man) Monocytes # (Manual) Eosinophils # (Manual) Basophils # (Manual) Metamyelocytes # Myelocytes # Promyelocytes # Blast Cells # WBC Morphology Hypersegmented Neuts Hyposegmented Neuts Hypogranular Neuts Smudge Cells Toxic Granulation Toxic Vacuolation Dohle Bodies Pelger-Huet Anomaly Sage Rods Platelet Estimate Clumped Platelets Plt Clumps, EDTA Large Platelets Giant Platelets Platelet Satelliting Plt Morphology Comment RBC Morphology Dimorphic RBCs Polychromasia Hypochromasia Poikilocytosis Anisocytosis Microcytosis Macrocytosis Spherocytes Pappenheimer Bodies Sickle Cells Target Cells Tear Drop Cells Ovalocytes Helmet Cells [place] Bodies [place] Rings Oz Cells Bite Cells Crenated Cell Elliptocytes Acanthocytes (Spur) Rouleaux Hemoglobin C Crystals Schistocytes Malaria parasites Ck Bodies Hem Pathologist Commnt PT 14.8 INR 1.04 APTT Fibrinogen 381 D-Dimer Sodium 133 L Potassium 4.3 Chloride 104.8 Carbon Dioxide 19 L Anion Gap 14 BUN 8 Creatinine 1.0 Estimated GFR > 60 BUN/Creatinine Ratio 8 Glucose 113 H Calcium 7.0 L Total Bilirubin 0.20 AST 27 ALT 8 Alkaline Phosphatase 61 Total Protein 4.4 L Albumin 2.8 L Albumin/Globulin Ratio 1.8 Urine Color Urine Turbidity Urine pH Ur Specific [place] Urine Protein Urine Glucose (UA) Urine Ketones Urine Blood Urine Nitrite Ur Reducing Substances Urine Bilirubin Urine Ictotest Urine Urobilinogen Ur Leukocyte Esterase Urine WBC (Auto) Urine RBC (Auto) U Epithel Cells (Auto) Urine Bacteria (Auto) Hyaline Casts Urine Mucus Urine Opiates Screen Urine Methadone Screen Ur Barbiturates Screen Ur Phencyclidine Scrn Ur Amphetamines Screen U Benzodiazepines Scrn Urine Cocaine Screen U Marijuana (THC) Screen Drugs of Abuse Note Syphilis IgG/IgM Ab SARS-CoV-2 (PCR) Hep Bs Antigen Rubella IgG Antibody Blood Type Antibody Screen Crossmatch 06/18/22 06/19/22 06/19/22 12:54 00:01 00:01 WBC 14.6 H RBC 2.84 L Hgb 8.5 L Hct 24.3 L MCV 85 MCH 30 MCHC 35 H RDW 15.9 H Plt Count 70 L Lymph % (Auto) 14.0 Levy % (Auto) 7.9 H Eos % (Auto) 0.0 Baso % (Auto) 0.1 Lymph # (Auto) 2.0 Levy # (Auto) 1.1 H Eos # (Auto) 0.0 Baso # (Auto) 0.0 Add Manual Diff Total Counted Seg Neutrophils % 78.0 H Seg Neuts % (Manual) Band Neutrophils % Lymphocytes % (Manual) Reactive Lymphs % (Man) Monocytes % (Manual) Eosinophils % (Manual) Basophils % (Manual) Metamyelocytes % Myelocytes % Promyelocytes % Blast Cells % Nucleated RBC % Seg Neutrophils # 11.4 H Seg Neutrophils # Man Band Neutrophils # Lymphocytes # (Manual) Abs React Lymphs (Man) Monocytes # (Manual) Eosinophils # (Manual) Basophils # (Manual) Metamyelocytes # Myelocytes # Promyelocytes # Blast Cells # WBC Morphology Hypersegmented Neuts Hyposegmented Neuts Hypogranular Neuts Smudge Cells Toxic Granulation Toxic Vacuolation Dohle Bodies Pelger-Huet Anomaly Sage Rods Platelet Estimate Clumped Platelets Plt Clumps, EDTA Large Platelets Giant Platelets Platelet Satelliting Plt Morphology Comment RBC Morphology Dimorphic RBCs Polychromasia Hypochromasia Poikilocytosis Anisocytosis Microcytosis Macrocytosis Spherocytes Pappenheimer Bodies Sickle Cells Target Cells Tear Drop Cells Ovalocytes Helmet Cells [place] Bodies [place] Rings [place] Cells Bite Cells Crenated Cell Elliptocytes Acanthocytes (Spur) Rouleaux Hemoglobin C Crystals Schistocytes Malaria parasites Ck Bodies Hem Pathologist Commnt PT 14.3 12.9 INR 1.00 0.88 APTT Fibrinogen 375 387 D-Dimer Sodium Potassium Chloride Carbon Dioxide Anion Gap BUN Creatinine Estimated GFR BUN/Creatinine Ratio Glucose Calcium Total Bilirubin AST ALT Alkaline Phosphatase Total Protein Albumin Albumin/Globulin Ratio Urine Color Urine Turbidity Urine pH Ur Specific [place] Urine Protein Urine Glucose (UA) Urine Ketones Urine Blood Urine Nitrite Ur Reducing Substances Urine Bilirubin Urine Ictotest Urine Urobilinogen Ur Leukocyte Esterase Urine WBC (Auto) Urine RBC (Auto) U Epithel Cells (Auto) Urine Bacteria (Auto) Hyaline Casts Urine Mucus Urine Opiates Screen Urine Methadone Screen Ur Barbiturates Screen Ur Phencyclidine Scrn Ur Amphetamines Screen U Benzodiazepines Scrn Urine Cocaine Screen U Marijuana (THC) Screen Drugs of Abuse Note Syphilis IgG/IgM Ab SARS-CoV-2 (PCR) Hep Bs Antigen Rubella IgG Antibody Blood Type Antibody Screen Crossmatch 06/19/22 06/19/22 04:08 04:08 WBC 14.0 H RBC 2.70 L Hgb 8.0 L Hct 23.1 L MCV 85 MCH 30 MCHC 35 H RDW 15.8 H Plt Count 74 L Lymph % (Auto) Levy % (Auto) Eos % (Auto) Baso % (Auto) Lymph # (Auto) Levy # (Auto) Eos # (Auto) Baso # (Auto) Add Manual Diff Total Counted Seg Neutrophils % Seg Neuts % (Manual) Band Neutrophils % Lymphocytes % (Manual) Reactive Lymphs % (Man) Monocytes % (Manual) Eosinophils % (Manual) Basophils % (Manual) Metamyelocytes % Myelocytes % Promyelocytes % Blast Cells % Nucleated RBC % Seg Neutrophils # Seg Neutrophils # Man Band Neutrophils # Lymphocytes # (Manual) Abs React Lymphs (Man) Monocytes # (Manual) Eosinophils # (Manual) Basophils # (Manual) Metamyelocytes # Myelocytes # Promyelocytes # Blast Cells # WBC Morphology Hypersegmented Neuts Hyposegmented Neuts Hypogranular Neuts Smudge Cells Toxic Granulation Toxic Vacuolation Dohle Bodies Pelger-Huet Anomaly Sage Rods Platelet Estimate Clumped Platelets Plt Clumps, EDTA Large Platelets Giant Platelets Platelet Satelliting Plt Morphology Comment RBC Morphology Dimorphic RBCs Polychromasia Hypochromasia Poikilocytosis Anisocytosis Microcytosis Macrocytosis Spherocytes Pappenheimer Bodies Sickle Cells Target Cells Tear Drop Cells Ovalocytes Helmet Cells [place] Bodies [place] Rings Oz Cells Bite Cells Crenated Cell Elliptocytes Acanthocytes (Spur) Rouleaux Hemoglobin C Crystals Schistocytes Malaria parasites Ck Bodies Hem Pathologist Commnt PT INR APTT Fibrinogen D-Dimer Sodium 136 L Potassium 4.0 Chloride 105.1 Carbon Dioxide 21 L Anion Gap 14 BUN 6 L Creatinine 0.8 Estimated GFR > 60 BUN/Creatinine Ratio 8 Glucose 87 Calcium 7.9 L Total Bilirubin AST ALT Alkaline Phosphatase Total Protein Albumin Albumin/Globulin Ratio Urine Color Urine Turbidity Urine pH Ur Specific [place] Urine Protein Urine Glucose (UA) Urine Ketones Urine Blood Urine Nitrite Ur Reducing Substances Urine Bilirubin Urine Ictotest Urine Urobilinogen Ur Leukocyte Esterase Urine WBC (Auto) Urine RBC (Auto) U Epithel Cells (Auto) Urine Bacteria (Auto) Hyaline Casts Urine Mucus Urine Opiates Screen Urine Methadone Screen Ur Barbiturates Screen Ur Phencyclidine Scrn Ur Amphetamines Screen U Benzodiazepines Scrn Urine Cocaine Screen U Marijuana (THC) Screen Drugs of Abuse Note Syphilis IgG/IgM Ab SARS-CoV-2 (PCR) Hep Bs Antigen Rubella IgG Antibody Blood Type Antibody Screen Crossmatch
[2022-06-19] MEDS: PRENATAL VIT27-FE FUMARATE-FOLIC ACID VIT TAB PO SCH (12:12)
--- NOTE | 2022-06-19 13:30 | Progress Note ---
Assessment and Plan 22 y/o female with hemorrhage after vaginal delivery requiring uterine artery embolization and aggressive resuscitation. 06/19/22: Platelets are trending up. Stable H/H, not overly concerned about the change from 9-8 in the last 24 hours. No current indication for Vitamin K therapy and should ask heme but her DVT developed during so 3-6 months of anticoagulation therapy would have been appropriate for her. From a critical care standpoint, stable for transfer out to mother baby. If Ob not comfortable suggest obtaining a medicine consult and [facility]. Will sign off once out of unit. 1. Follow up repeat CBC to make sure H/H are stable and that platelets are not continuing to Trend down. Fibrinogen is greater than 300 now and no active evidence of bleeding. Stable BP 2. Pain control 3. PO foods 4. OOB when OB feels ready 5. Prior history of asthma, not in flare, will add PRN albuterol 6. Keep in ICU for the next 24 hours and assess. Likely ok for mother baby tomorrow. Subjective Date of service: 06/19/22 Principal diagnosis: Status post vaginal delivery & hemorrhage day 2 Interval history: No acute events. hgb is stable. No evidence of active bleeding. Objective - Constitutional Vitals: Vital Signs - 12hr 06/19/22 06/19/22 06/19/22 02:00 03:00 04:00 Temperature 98.8 F Pulse Rate 105 H 97 H 95 H Pulse Rate [ From Monitor] Respiratory 18 15 18 Rate Blood Pressure 150/91 120/81 142/92 O2 Sat by Pulse 100 99 100 Oximetry 06/19/22 06/19/22 06/19/22 05:00 06:00 07:00 Temperature Pulse Rate 105 H 94 H 99 H Pulse Rate [ From Monitor] Respiratory 12 20 14 Rate Blood Pressure 140/87 144/91 123/80 O2 Sat by Pulse 100 100 99 Oximetry 06/19/22 06/19/22 06/19/22 07:04 08:00 09:00 Temperature 98.4 F Pulse Rate 99 H 104 H 112 H Pulse Rate [ 99 H From Monitor] Respiratory 13 10 L Rate Blood Pressure 123/79 129/83 O2 Sat by Pulse 100 100 Oximetry 06/19/22 06/19/22 06/19/22 10:00 11:00 12:00 Temperature 99.1 F Pulse Rate 104 H 113 H 115 H Pulse Rate [ 99 H From Monitor] Respiratory 13 10 L 10 L Rate Blood Pressure 137/91 142/87 120/74 O2 Sat by Pulse 100 100 100 Oximetry - Labs CBC & Chem 7: 06/19/22 04:08 06/19/22 04:08 Labs: Abnormal lab results 06/17/22 06/18/22 06/19/22 Range/Units 11:40 12:54 00:01 WBC 12.7 H 14.6 H (4.5-11.0) K/mm3 RBC 3.05 L 2.84 L (3.65-5.03) M/mm3 Hgb 9.1 L 8.5 L (10.1-14.3) gm/dl Hct 26.6 L D 24.3 L (30.3-42.9) % MCHC 35 H (30-34) % RDW 15.7 H 15.9 H (13.2-15.2) % Plt Count 67 L 70 L (140-440) K/mm3 [place] % (Auto) 10.1 H 7.9 H (0.0-7.3) % [place] # (Auto) 1.3 H 1.1 H (0.0-0.8) K/mm3 Seg Neutrophils % 73.5 H 78.0 H (40.0-70.0) % Seg Neutrophils # 9.3 H 11.4 H (1.8-7.7) K/mm3 Sodium (137-145) mmol/L Carbon Dioxide (22-30) mmol/L BUN (7-17) mg/dL Calcium (8.4-10.2) mg/dL Crossmatch See Detail 06/19/22 06/19/22 Range/Units 04:08 04:08 WBC 14.0 H (4.5-11.0) K/mm3 RBC 2.70 L (3.65-5.03) M/mm3 Hgb 8.0 L (10.1-14.3) gm/dl Hct 23.1 L (30.3-42.9) % MCHC 35 H (30-34) % RDW 15.8 H (13.2-15.2) % Plt Count 74 L (140-440) K/mm3 [place] % (Auto) (0.0-7.3) % [place] # (Auto) (0.0-0.8) K/mm3 Seg Neutrophils % (40.0-70.0) % Seg Neutrophils # (1.8-7.7) K/mm3 Sodium 136 L (137-145) mmol/L Carbon Dioxide 21 L (22-30) mmol/L BUN 6 L (7-17) mg/dL Calcium 7.9 L (8.4-10.2) mg/dL Crossmatch Medications & Allergies - Medications Allergies/Adverse Reactions: Allergies No Known Allergies Allergy (Verified 06/17/22 12:15) Home Medications: Home Medications Medication Instructions Recorded Confirmed Last Taken Type Enoxaparin [Lovenox] 60 mg SQ Q12HR 06/17/22 06/17/22 1 Month Ago History ~05/18/22 Vit No.179/Iron/Folic 1 each PO DAILY 06/17/22 06/17/22 1 Month Ago History [ Tablet] ~05/18/22 Active Medications: Generic Name Dose Route Start Last Admin Trade Name Faustino PRN Reason Stop Dose Admin Acetaminophen 650 mg 06/17/22 19:17 06/19/22 12:12 Acetaminophen 325 Mg Tab PO 650 mg Q4H PRN Administration Pain MILD(1-3)/Fever >100.5/SMITH Hydrocodone Bitart/Acetaminophen 2 each 06/17/22 19:17 06/18/22 15:45 Hydrocodone/Acetaminophen 5-325 Mg Tab PO 2 each Q6H PRN Administration Pain, Moderate (4-6) Albuterol 2.5 mg 06/18/22 13:00 Albuterol 2.5 Mg/3 Ml Nebu IH Q4HRT PRN Shortness Of Breath Bisacodyl 10 mg 06/17/22 19:17 Bisacodyl 10 Mg Rect Supp RI BID PRN Constipation Carboprost Tromethamine 250 mcg 06/17/22 11:57 Carboprost Tromethamine 250 Mcg/1 Ml Inj IM ONCE PRN Uterine Bleeding Diphenhydramine HCl 25 mg 06/17/22 19:17 Diphenhydramine 25 Mg Cap PO Q6H PRN Itching Ephedrine Sulfate 10 mg 06/17/22 11:57 06/17/22 17:22 Ephedrine Sulfate 50 Mg/1 Ml Inj IV 10 mg Q2M PRN Administration Hypotension Hydromorphone HCl 0.5 mg 06/18/22 00:25 06/18/22 01:02 Hydromorphone 1 Mg/1 Ml Inj IV 0.5 mg Q2H PRN Administration Pain , Severe (7-10) Oxytocin/Sodium Chloride 30 units in 500 mls @ 2 mls/hr 06/17/22 12:00 Pitocin/Ns 30 Unit/500ml IV TITR KATHY Protocol Ketorolac Tromethamine 30 mg 06/17/22 19:17 Ketorolac 30 Mg/1 Ml Inj IV 06/22/22 19:16 Q6H PRN Pain, Moderate (4-6) Loperamide HCl 2 mg 06/17/22 11:57 Loperamide 2 Mg Cap PO ONCE PRN give with Hemabate Magnesium Hydroxide 30 ml 06/17/22 19:17 Magnesium Hydroxide (Mom) Oral Liqd Udc PO HS PRN Constipation Mineral Oil 30 ml 06/17/22 11:57 Mineral Oil 30 Ml Oral Liqd PO QHS PRN Constipation Multi-Ingredient Ointment 1 applic 06/17/22 19:17 Lanolin/Zinc/Dimethicone (Lansinoh) 7 Gm TP PRN PRN Sore Nipples Multivitamins/Iron/Calcium 1 each 06/19/22 11:00 06/19/22 12:12 [id number] Fumarate-Folic Acid Vit Tab PO 1 each QDAY KATHY Administration Ondansetron HCl 4 mg 06/18/22 00:44 Ondansetron 4 Mg/2 Ml Inj IV Q4H PRN Nausea And Vomiting Oxytocin 10 unit 06/17/22 11:57 Oxytocin 10 Unit/1 Ml Inj IM ONCE PRN Uterine Bleeding Promethazine HCl 25 mg 06/17/22 19:17 Promethazine 25 Mg Rect Supp RI Q6H PRN Nausea And Vomiting Promethazine HCl 25 mg 06/17/22 19:17 Promethazine 25 Mg Tab PO Q6H PRN Nausea And Vomiting Simethicone 80 mg 06/18/22 22:45 06/18/22 22:52 Simethicone 80 Mg Chew Tab PO 80 mg Q6H PRN Administration Gas pain Sodium Chloride 10 ml 06/17/22 20:00 Sodium Chloride 0.9% 10 Ml Flush Syringe IV 06/27/22 23:59 PRN NR Terbutaline Sulfate 0.25 mg 06/17/22 11:57 Terbutaline 1 Mg/1 Ml Inj SUB-Q ONCE PRN Hyperstimulation/Hypertonicity Witch Martha/Glycerin 1 each 06/17/22 19:17 06/18/22 15:46 Witch Martha/ Glycerin Pad TP 1 each PRN PRN Administration Hemorrhoid/cleansing/soothing
--- NOTE | 2022-06-19 14:58 | Progress Note ---
Assessment and Plan Assessment and plan: This is a 22-year-old female with history of DVTs s/p vaginal c/b hemorrhage s/p Gelfoam ligation of bilateral uterine arteries, left internal pudendal artery and anterior division of internal iliac artery # hemorrhage -s/p vaginal brith c/b hemmorhage -s/p 2 L normal saline, Pitocin, Cytotec, Methergine andBakanis ballon -s/p gel foam ligation of bilateral uterine arteries, left internal pudendal artery and anterior division of internal iliac artery -6 units PRBC and 1 unit cryoprecipitate -Fibrinogen is 381 post cryo -IR consulted, apprecitate recommendations -No chemical anticoagulation in setting of severe anemia -SCDs to bilateral lower extremities while in bed #Tachycardia -Low dose labetalol PO -May need to be stopped on discharge #Leukocytosis -maybe reactive -Trend CBC #Thrombocytopenia -No noted unusual bleeding apart from normal bleeding -Will trend plts #Mild protein calorie malnutrition -Dietary supplementation #h/o DVT -Diagnosed at 3 months -Home therapy with lovenox #h/o asthma -prn albuterol The high probability of a clinically significant, sudden or life threatening deterioration of the [heme] system(s) required my full and direct attention, intervention and personal management. The aggregate critical care time was [60] minutes. This time is in addition to time spent performing reported procedures but includes the following: [x] Data Review and interpretation [x] Patient assessment and monitoring of vital signs [x] Documentation [x] Medication orders and management Disposition Plan: transfer to mother/baby Total Time Spent with Patient (Minutes): 60 History Interval history: This is a 22-year-old female who has a history of DVTs and asthma and was taking anticoagulation with Lovenox subcu since 3 months who is status post vaginal complicated by hemorrhage and was transfused a total of 6 unit PRBC and 1 cryoprecipitate and was taken emergently to IR for a gel foam ligation of bilateral uterine arteries, left internal pudendal artery and anterior division of internal iliac artery. Hospital course to date: 06/18: Patient slightly tachycardic, lactated Ringer's IV fluid discontinued, will follow serial CBCs. Patient will stay in ICU for today for continued monitoring. No further bleeding noted aside from usual bleeding 06/19: Slightly downtrending of H/H but no overt bleeding noted by nurse. Will be transferred to floor. Started on labetalol due to tachycardia but may not need on discharge. We will continue to follow. Hospitalist Physical - Constitutional Vitals: Temp Pulse Resp BP Pulse Ox 99.1 F 120 H 11 L 143/89 100 06/19/22 12:00 06/19/22 14:00 06/19/22 14:00 06/19/22 14:00 06/19/22 14:00 General appearance: Present: no acute distress, well-nourished - EENT Eyes: Present: PERRL, EOM intact ENT: hearing intact, clear oral mucosa, dentition normal - Neck Neck: Present: normal ROM - Respiratory Respiratory effort: normal Respiratory: bilateral: CTA - Cardiovascular Rhythm: regular Heart Sounds: Present: S1 & S2. Absent: systolic murmur - Extremities Extremities: no ischemia, pulses intact, pulses symmetrical, No edema, normal temperature, normal color Peripheral Pulses: within normal limits - Abdominal General gastrointestinal: soft, non-tender, non-distended, normal bowel sounds - Integumentary Integumentary: Present: warm, dry - Psychiatric Psychiatric: cooperative - Neurologic Neurologic: CNII-XII intact, no focal deficits, moves all extremities - Allied Health Allied health notes reviewed: nursing, social work Results - Labs CBC & Chem 7: 06/19/22 04:08 06/19/22 04:08 Labs: Laboratory Last Values WBC 14.0 K/mm3 (4.5-11.0) H 06/19/22 04:08 RBC 2.70 M/mm3 (3.65-5.03) L 06/19/22 04:08 Hgb 8.0 gm/dl (10.1-14.3) L 06/19/22 04:08 Hct 23.1 % (30.3-42.9) L 06/19/22 04:08 MCV 85 fl (79-97) 06/19/22 04:08 MCH 30 pg (28-32) 06/19/22 04:08 MCHC 35 % (30-34) H 06/19/22 04:08 RDW 15.8 % (13.2-15.2) H 06/19/22 04:08 Plt Count 74 K/mm3 (140-440) L 06/19/22 04:08 Lymph % (Auto) 14.0 % (13.4-35.0) 06/19/22 00:01 [place] % (Auto) 7.9 % (0.0-7.3) H 06/19/22 00:01 Eos % (Auto) 0.0 % (0.0-4.3) 06/19/22 00:01 Baso % (Auto) 0.1 % (0.0-1.8) 06/19/22 00:01 Lymph # (Auto) 2.0 K/mm3 (1.2-5.4) 06/19/22 00:01 [place] # (Auto) 1.1 K/mm3 (0.0-0.8) H 06/19/22 00:01 Eos # (Auto) 0.0 K/mm3 (0.0-0.4) 06/19/22 00:01 Baso # (Auto) 0.0 K/mm3 (0.0-0.1) 06/19/22 00:01 Add Manual Diff Complete 06/17/22 22:48 Total Counted 100 06/17/22 22:48 Seg Neutrophils % 78.0 % (40.0-70.0) H 06/19/22 00:01 Seg Neuts % (Manual) 89.0 % (40.0-70.0) H 06/17/22 22:48 Band Neutrophils % 4.0 % 06/17/22 22:48 Lymphocytes % (Manual) 3.0 % (13.4-35.0) L 06/17/22 22:48 Reactive Lymphs % (Man) 0 % 06/17/22 22:48 Monocytes % (Manual) 2.0 % (0.0-7.3) 06/17/22 22:48 Eosinophils % (Manual) 0 % (0.0-4.3) 06/17/22 22:48 Basophils % (Manual) 0 % (0.0-1.8) 06/17/22 22:48 Metamyelocytes % 2.0 % 06/17/22 22:48 Myelocytes % 0 % 06/17/22 22:48 Promyelocytes % 0 % 06/17/22 22:48 Blast Cells % 0 % 06/17/22 22:48 Nucleated RBC % Not Reportable 06/17/22 22:48 Seg Neutrophils # 11.4 K/mm3 (1.8-7.7) H 06/19/22 00:01 Seg Neutrophils # Man 16.9 K/mm3 (1.8-7.7) H 06/17/22 22:48 Band Neutrophils # 0.8 K/mm3 06/17/22 22:48 Lymphocytes # (Manual) 0.6 K/mm3 (1.2-5.4) L 06/17/22 22:48 Abs React Lymphs (Man) 0.0 K/mm3 06/17/22 22:48 Monocytes # (Manual) 0.4 K/mm3 (0.0-0.8) 06/17/22 22:48 Eosinophils # (Manual) 0.0 K/mm3 (0.0-0.4) 06/17/22 22:48 Basophils # (Manual) 0.0 K/mm3 (0.0-0.1) 06/17/22 22:48 Metamyelocytes # 0.4 K/mm3 06/17/22 22:48 Myelocytes # 0.0 K/mm3 06/17/22 22:48 Promyelocytes # 0.0 K/mm3 06/17/22 22:48 Blast Cells # 0.0 K/mm3 06/17/22 22:48 WBC Morphology Not Reportable 06/17/22 22:48 Hypersegmented Neuts Not Reportable 06/17/22 22:48 Hyposegmented Neuts Not Reportable 06/17/22 22:48 Hypogranular Neuts Not Reportable 06/17/22 22:48 Smudge Cells Not Reportable 06/17/22 22:48 Toxic Granulation Not Reportable 06/17/22 22:48 Toxic Vacuolation Not Reportable 06/17/22 22:48 Dohle Bodies Not Reportable 06/17/22 22:48 Pelger-Huet Anomaly Not Reportable 06/17/22 22:48 Sage Rods Not Reportable 06/17/22 22:48 Platelet Estimate Appears decreased 06/17/22 22:48 Clumped Platelets Not Reportable 06/17/22 22:48 Plt Clumps, EDTA Not Reportable 06/17/22 22:48 Large Platelets Not Reportable 06/17/22 22:48 Giant Platelets Not Reportable 06/17/22 22:48 Platelet Satelliting Not Reportable 06/17/22 22:48 Plt Morphology Comment Not Reportable 06/17/22 22:48 RBC Morphology Normal 06/17/22 22:48 Dimorphic RBCs Not Reportable 06/17/22 22:48 Polychromasia Not Reportable 06/17/22 22:48 Hypochromasia Not Reportable 06/17/22 22:48 Poikilocytosis Not Reportable 06/17/22 22:48 Anisocytosis Not Reportable 06/17/22 22:48 Microcytosis Not Reportable 06/17/22 22:48 Macrocytosis Not Reportable 06/17/22 22:48 Spherocytes Not Reportable 06/17/22 22:48 Pappenheimer Bodies Not Reportable 06/17/22 22:48 Sickle Cells Not Reportable 06/17/22 22:48 Target Cells Not Reportable 06/17/22 22:48 Tear Drop Cells Not Reportable 06/17/22 22:48 Ovalocytes Not Reportable 06/17/22 22:48 Helmet Cells Not Reportable 06/17/22 22:48 [place] Bodies Not Reportable 06/17/22 22:48 [place] Rings Not Reportable 06/17/22 22:48 [place] Cells Not Reportable 06/17/22 22:48 Bite Cells Not Reportable 06/17/22 22:48 Crenated Cell Not Reportable 06/17/22 22:48 Elliptocytes Not Reportable 06/17/22 22:48 Acanthocytes (Spur) Not Reportable 06/17/22 22:48 Rouleaux Not Reportable 06/17/22 22:48 Hemoglobin C Crystals Not Reportable 06/17/22 22:48 Schistocytes Not Reportable 06/17/22 22:48 Malaria parasites Not Reportable 06/17/22 22:48 Ck Bodies Not Reportable 06/17/22 22:48 Hem Pathologist Commnt No 06/17/22 22:48 PT 12.9 Sec. (12.2-14.9) 06/19/22 00:01 INR 0.88 (0.87-1.13) 06/19/22 00:01 APTT 28.4 Sec. (24.2-36.6) 06/17/22 22:48 Fibrinogen 387 mg/dl (211-480) 06/19/22 00:01 D-Dimer 7013.41 ng/mlDDU (0-234) H 06/17/22 17:40 Sodium 136 mmol/L (137-145) L 06/19/22 04:08 Potassium 4.0 mmol/L (3.6-5.0) 06/19/22 04:08 Chloride 105.1 mmol/L (98-107) 06/19/22 04:08 Carbon Dioxide 21 mmol/L (22-30) L 06/19/22 04:08 Anion Gap 14 mmol/L 06/19/22 04:08 BUN 6 mg/dL (7-17) L 06/19/22 04:08 Creatinine 0.8 mg/dL (0.6-1.2) 06/19/22 04:08 Estimated GFR > 60 ml/min 06/19/22 04:08 BUN/Creatinine Ratio 8 % 06/19/22 04:08 Glucose 87 mg/dL (65-100) 06/19/22 04:08 Calcium 7.9 mg/dL (8.4-10.2) L 06/19/22 04:08 Total Bilirubin 0.20 mg/dL (0.1-1.2) 06/18/22 05:58 AST 27 units/L (5-40) 06/18/22 05:58 ALT 8 units/L (7-56) 06/18/22 05:58 Alkaline Phosphatase 61 units/L (35-129) 06/18/22 05:58 Total Protein 4.4 g/dL (6.3-8.2) L 06/18/22 05:58 Albumin 2.8 g/dL (3.9-5) L 06/18/22 05:58 Albumin/Globulin Ratio 1.8 % 06/18/22 05:58 Urine Color Straw (Yellow) 06/17/22 12:10 Urine Turbidity Clear (Clear) 06/17/22 12:10 Urine pH 8.0 (5.0-7.0) H 06/17/22 12:10 Ur Specific [place] 1.005 (1.003-1.030) 06/17/22 12:10 Urine Protein <15 mg/dl mg/dL (Negative) 06/17/22 12:10 Urine Glucose (UA) Negative mg/dL (Negative) 06/17/22 12:10 Urine Ketones Negative mg/dL (Negative) 06/17/22 12:10 Urine Blood Trace (Negative) 06/17/22 12:10 Urine Nitrite Negative (Negative) 06/17/22 12:10 Ur Reducing Substances Not Reportable 06/17/22 12:10 Urine Bilirubin Negative (Negative) 06/17/22 12:10 Urine Ictotest Not Reportable 06/17/22 12:10 Urine Urobilinogen < 2.0 mg/dL (<2.0) 06/17/22 12:10 Ur Leukocyte Esterase Small (Negative) 06/17/22 12:10 Urine WBC (Auto) 14.0 /HPF (0.0-6.0) H 06/17/22 12:10 Urine RBC (Auto) 5.0 /HPF (0.0-6.0) 06/17/22 12:10 U Epithel Cells (Auto) 15.0 /HPF (0-13.0) H 06/17/22 12:10 Urine Bacteria (Auto) 1+ /HPF (Negative) 06/17/22 12:10 Hyaline Casts 1 /LPF 06/17/22 12:10 Urine Mucus Few /HPF 06/17/22 12:10 Urine Opiates Screen Negative 06/17/22 12:09 Urine Methadone Screen Negative 06/17/22 12:09 Ur Barbiturates Screen Negative 06/17/22 12:09 Ur Phencyclidine Scrn Negative 06/17/22 12:09 Ur Amphetamines Screen Negative 06/17/22 12:09 U Benzodiazepines Scrn Negative 06/17/22 12:09 Urine Cocaine Screen Negative 06/17/22 12:09 U Marijuana (THC) Screen Negative 06/17/22 12:09 Drugs of Abuse Note Disclamer 06/17/22 12:09 Syphilis IgG/IgM Ab Nonreactive (NonReactive) 06/17/22 12:10 SARS-CoV-2 (PCR) Negative (Negative) 06/17/22 11:40 Hep Bs Antigen Non-reactive (Negative) 06/17/22 12:10 Rubella IgG Antibody Immune (Immune) 06/17/22 12:10 Blood Type O POSITIVE 06/17/22 11:40 Antibody Screen Negative 06/17/22 11:40 Crossmatch See Detail 06/17/22 11:40 Microbiology: Microbiology 06/17/22 12:10 Urine,Clean Catch Urine Culture - Final NO GROWTH AFTER 48 HOURS [place]/IV: Voiding Method Indwelling Catheter Active Medications - Current Medications Current Medications: Generic Name Dose Route Start Last Admin Trade Name Freq PRN Reason Stop Dose Admin Acetaminophen 650 mg 06/17/22 19:17 06/19/22 12:12 Acetaminophen 325 Mg Tab PO 650 mg Q4H PRN Administration Pain MILD(1-3)/Fever >100.5/SMITH Hydrocodone Bitart/Acetaminophen 2 each 06/17/22 19:17 06/18/22 15:45 Hydrocodone/Acetaminophen 5-325 Mg Tab PO 2 each Q6H PRN Administration Pain, Moderate (4-6) Albuterol 2.5 mg 06/18/22 13:00 Albuterol 2.5 Mg/3 Ml Nebu IH Q4HRT PRN Shortness Of Breath Bisacodyl 10 mg 06/17/22 19:17 Bisacodyl 10 Mg Rect Supp FL BID PRN Constipation Carboprost Tromethamine 250 mcg 06/17/22 11:57 Carboprost Tromethamine 250 Mcg/1 Ml Inj IM ONCE PRN Uterine Bleeding Diphenhydramine HCl 25 mg 06/17/22 19:17 Diphenhydramine 25 Mg Cap PO Q6H PRN Itching Ephedrine Sulfate 10 mg 06/17/22 11:57 06/17/22 17:22 Ephedrine Sulfate 50 Mg/1 Ml Inj IV 10 mg Q2M PRN Administration Hypotension Hydromorphone HCl 0.5 mg 06/18/22 00:25 06/18/22 01:02 Hydromorphone 1 Mg/1 Ml Inj IV 0.5 mg Q2H PRN Administration Pain , Severe (7-10) Oxytocin/Sodium Chloride 30 units in 500 mls @ 2 mls/hr 06/17/22 12:00 Pitocin/Ns 30 Unit/500ml IV TITR KATHY Protocol Ketorolac Tromethamine 30 mg 06/17/22 19:17 Ketorolac 30 Mg/1 Ml Inj IV 06/22/22 19:16 Q6H PRN Pain, Moderate (4-6) Labetalol HCl 100 mg 06/19/22 15:00 Labetalol 100 Mg Tab PO BID [facility] Loperamide HCl 2 mg 06/17/22 11:57 Loperamide 2 Mg Cap PO ONCE PRN give with Hemabate Magnesium Hydroxide 30 ml 06/17/22 19:17 Magnesium Hydroxide (Mom) Oral Liqd Udc PO HS PRN Constipation Mineral Oil 30 ml 06/17/22 11:57 Mineral Oil 30 Ml Oral Liqd PO QHS PRN Constipation Multi-Ingredient Ointment 1 applic 06/17/22 19:17 Lanolin/Zinc/Dimethicone (Lansinoh) 7 Gm TP PRN PRN Sore Nipples Multivitamins/Iron/Calcium 1 each 06/19/22 11:00 06/19/22 12:12 [id number] Fumarate-Folic Acid Vit Tab PO 1 each QDAY KATHY Administration Ondansetron HCl 4 mg 06/18/22 00:44 Ondansetron 4 Mg/2 Ml Inj IV Q4H PRN Nausea And Vomiting Oxytocin 10 unit 06/17/22 11:57 Oxytocin 10 Unit/1 Ml Inj IM ONCE PRN Uterine Bleeding Promethazine HCl 25 mg 06/17/22 19:17 Promethazine 25 Mg Rect Supp FL Q6H PRN Nausea And Vomiting Promethazine HCl 25 mg 06/17/22 19:17 Promethazine 25 Mg Tab PO Q6H PRN Nausea And Vomiting Simethicone 80 mg 06/18/22 22:45 06/18/22 22:52 Simethicone 80 Mg Chew Tab PO 80 mg Q6H PRN Administration Gas pain Sodium Chloride 10 ml 06/17/22 20:00 Sodium Chloride 0.9% 10 Ml Flush Syringe IV 06/27/22 23:59 PRN NR Terbutaline Sulfate 0.25 mg 06/17/22 11:57 Terbutaline 1 Mg/1 Ml Inj SUB-Q ONCE PRN Hyperstimulation/Hypertonicity Witch Martha/Glycerin 1 each 06/17/22 19:17 06/18/22 15:46 Witch Martha/ Glycerin Pad TP 1 each PRN PRN Administration Hemorrhoid/cleansing/soothing
[2022-06-19 23:57] LABS: Basophils % (Auto) 0.1 % (0.0-1.8); Eosinophils % (Auto) 0.2 % (0.0-4.3); Hematocrit 24.7 % (30.3-42.9); Hemoglobin 8.3 gm/dl (10.1-14.3); Lymphocytes # (Auto) 3.9 K/mm3 (1.2-5.4); Lymphocytes % (Auto) 21.8 % (13.4-35.0); Mean Corpuscular HGB Conc 34 % (30-34); Mean Corpuscular Volume 87 fl (79-97); Monocytes # (Auto) 1.2 K/mm3 (0.0-0.8); Monocytes % (Auto) 6.6 % (0.0-7.3); Platelet Count 125 K/mm3 (140-440); Red Blood Count 2.83 M/mm3 (3.65-5.03); Red Cell Distribution Width 15.9 % (13.2-15.2)
[2022-06-20 01:33] LABS: Basophils % (Auto) 0.1 % (0.0-1.8); Eosinophils # (Auto) 0.1 K/mm3 (0.0-0.4); Eosinophils % (Auto) 0.4 % (0.0-4.3); Hematocrit 23.2 % (30.3-42.9); Lymphocytes # (Auto) 3.6 K/mm3 (1.2-5.4); Lymphocytes % (Auto) 21.9 % (13.4-35.0); Mean Corpuscular HGB Conc 34 % (30-34); Mean Corpuscular Volume 86 fl (79-97); Monocytes # (Auto) 1.1 K/mm3 (0.0-0.8); Monocytes % (Auto) 6.9 % (0.0-7.3); Platelet Count 113 K/mm3 (140-440); Red Blood Count 2.69 M/mm3 (3.65-5.03); Red Cell Distribution Width 15.7 % (13.2-15.2)
--- NOTE | 2022-06-20 08:08 | Progress Note ---
Assessment and Plan Assessment and plan: History Interval history: This is a 22-year-old female who has a history of DVTs and asthma and was taking anticoagulation with Lovenox subcu since 3 months who is status post vaginal complicated by hemorrhage and was transfused a total of 6 unit PRBC and 1 cryoprecipitate and was taken emergently to IR for a gel foam ligation of bilateral uterine arteries, left internal pudendal artery and anterior division of internal iliac artery. Hospital course to date: 06/18: Patient slightly tachycardic, lactated Ringer's IV fluid discontinued, will follow serial CBCs. Patient will stay in ICU for today for continued monitoring. No further bleeding noted aside from usual bleeding 06/19: Slightly downtrending of H/H but no overt bleeding noted by nurse. Will be transferred to floor. Started on labetalol due to tachycardia but may not need on discharge. We will continue to follow. 06/20: H/H stable. Hgb 8.1 this AM. Plt count improving. WBC downtrending. VSS. HR and BP both improved on labetalol. Would recommend iron tabs and follow up cbc in 2 weeks with OP primary care physician. Assessment and plan: This is a 22-year-old female with history of DVTs s/p vaginal c/b hemorrhage s/p Gelfoam ligation of bilateral uterine arteries, left internal pudendal artery and anterior division of internal iliac artery # hemorrhage -s/p vaginal brith c/b hemmorhage -s/p 2 L normal saline, Pitocin, Cytotec, Methergine andBakanis ballon -s/p gel foam ligation of bilateral uterine arteries, left internal pudendal artery and anterior division of internal iliac artery -6 units PRBC and 1 unit cryoprecipitate -Fibrinogen is 381 post cryo -IR consulted, apprecitate recommendations -No chemical anticoagulation in setting of severe anemia -SCDs to bilateral lower extremities while in bed #Tachycardia -Low dose labetalol PO -May need to be stopped on discharge #Leukocytosis (improving) -likely reactive, downtrending -Trend CBC #Thrombocytopenia (improving) -No noted unusual bleeding apart from normal bleeding -Will trend plts #Mild protein calorie malnutrition -Dietary supplementation #h/o DVT -Diagnosed at 3 months -Home therapy with lovenox #h/o asthma -prn albuterol History Interval history: No overnight events. VSS Hospitalist Physical - Physical exam Narrative exam: General appearance: Present: no acute distress, well-nourished - EENT Eyes: Present: PERRL, EOM intact ENT: hearing intact, clear oral mucosa, dentition normal - Neck Neck: Present: normal ROM - Respiratory Respiratory effort: normal Respiratory: bilateral: CTA - Cardiovascular Rhythm: regular Heart Sounds: Present: S1 & S2. Absent: systolic murmur - Extremities Extremities: no ischemia, pulses intact, pulses symmetrical, No edema, normal temperature, normal color Peripheral Pulses: within normal limits - Abdominal General gastrointestinal: soft, non-tender, non-distended, normal bowel sounds - Integumentary Integumentary: Present: warm, dry - Psychiatric Psychiatric: cooperative - Neurologic Neurologic: CNII-XII intact, no focal deficits, moves all extremities - Allied Health Allied health notes reviewed: nursing, social work - Constitutional Vitals: Temp Pulse Resp BP Pulse Ox 98.4 F 75 18 104/78 98 06/20/22 00:00 06/20/22 00:00 06/20/22 00:00 06/20/22 00:00 06/19/22 17:00 General appearance: Present: no acute distress, well-nourished Results - Labs CBC & Chem 7: 06/20/22 08:39 06/19/22 04:08 Labs: Laboratory Last Values WBC 16.5 K/mm3 (4.5-11.0) H 06/20/22 01:09 RBC 2.69 M/mm3 (3.65-5.03) L 06/20/22 01:09 Hgb 8.0 gm/dl (10.1-14.3) L 06/20/22 01:09 Hct 23.2 % (30.3-42.9) L 06/20/22 01:09 MCV 86 fl (79-97) 06/20/22 01:09 MCH 30 pg (28-32) 06/20/22 01:09 MCHC 34 % (30-34) 06/20/22 01:09 RDW 15.7 % (13.2-15.2) H 06/20/22 01:09 Plt Count 113 K/mm3 (140-440) L 06/20/22 01:09 Lymph % (Auto) 21.9 % (13.4-35.0) 06/20/22 01:09 [place] % (Auto) 6.9 % (0.0-7.3) 06/20/22 01:09 Eos % (Auto) 0.4 % (0.0-4.3) 06/20/22 01:09 Baso % (Auto) 0.1 % (0.0-1.8) 06/20/22 01:09 Lymph # (Auto) 3.6 K/mm3 (1.2-5.4) 06/20/22 01:09 [place] # (Auto) 1.1 K/mm3 (0.0-0.8) H 06/20/22 01:09 Eos # (Auto) 0.1 K/mm3 (0.0-0.4) 06/20/22 01:09 Baso # (Auto) 0.0 K/mm3 (0.0-0.1) 06/20/22 01:09 Add Manual Diff Complete 06/17/22 22:48 Total Counted 100 06/17/22 22:48 Seg Neutrophils % 70.7 % (40.0-70.0) H 06/20/22 01:09 Seg Neuts % (Manual) 89.0 % (40.0-70.0) H 06/17/22 22:48 Band Neutrophils % 4.0 % 06/17/22 22:48 Lymphocytes % (Manual) 3.0 % (13.4-35.0) L 06/17/22 22:48 Reactive Lymphs % (Man) 0 % 06/17/22 22:48 Monocytes % (Manual) 2.0 % (0.0-7.3) 06/17/22 22:48 Eosinophils % (Manual) 0 % (0.0-4.3) 06/17/22 22:48 Basophils % (Manual) 0 % (0.0-1.8) 06/17/22 22:48 Metamyelocytes % 2.0 % 06/17/22 22:48 Myelocytes % 0 % 06/17/22 22:48 Promyelocytes % 0 % 06/17/22 22:48 Blast Cells % 0 % 06/17/22 22:48 Nucleated RBC % Not Reportable 06/17/22 22:48 Seg Neutrophils # 11.7 K/mm3 (1.8-7.7) H 06/20/22 01:09 Seg Neutrophils # Man 16.9 K/mm3 (1.8-7.7) H 06/17/22 22:48 Band Neutrophils # 0.8 K/mm3 06/17/22 22:48 Lymphocytes # (Manual) 0.6 K/mm3 (1.2-5.4) L 06/17/22 22:48 Abs React Lymphs (Man) 0.0 K/mm3 06/17/22 22:48 Monocytes # (Manual) 0.4 K/mm3 (0.0-0.8) 06/17/22 22:48 Eosinophils # (Manual) 0.0 K/mm3 (0.0-0.4) 06/17/22 22:48 Basophils # (Manual) 0.0 K/mm3 (0.0-0.1) 06/17/22 22:48 Metamyelocytes # 0.4 K/mm3 06/17/22 22:48 Myelocytes # 0.0 K/mm3 06/17/22 22:48 Promyelocytes # 0.0 K/mm3 06/17/22 22:48 Blast Cells # 0.0 K/mm3 06/17/22 22:48 WBC Morphology Not Reportable 06/17/22 22:48 Hypersegmented Neuts Not Reportable 06/17/22 22:48 Hyposegmented Neuts Not Reportable 06/17/22 22:48 Hypogranular Neuts Not Reportable 06/17/22 22:48 Smudge Cells Not Reportable 06/17/22 22:48 Toxic Granulation Not Reportable 06/17/22 22:48 Toxic Vacuolation Not Reportable 06/17/22 22:48 Dohle Bodies Not Reportable 06/17/22 22:48 Pel[place]-Huet Anomaly Not Reportable 06/17/22 22:48 Sage Rods Not Reportable 06/17/22 22:48 Platelet Estimate Appears decreased 06/17/22 22:48 Clumped Platelets Not Reportable 06/17/22 22:48 Plt Clumps, EDTA Not Reportable 06/17/22 22:48 Large Platelets Not Reportable 06/17/22 22:48 Giant Platelets Not Reportable 06/17/22 22:48 Platelet Satelliting Not Reportable 06/17/22 22:48 Plt Morphology Comment Not Reportable 06/17/22 22:48 RBC Morphology Normal 06/17/22 22:48 Dimorphic RBCs Not Reportable 06/17/22 22:48 Polychromasia Not Reportable 06/17/22 22:48 Hypochromasia Not Reportable 06/17/22 22:48 Poikilocytosis Not Reportable 06/17/22 22:48 Anisocytosis Not Reportable 06/17/22 22:48 Microcytosis Not Reportable 06/17/22 22:48 Macrocytosis Not Reportable 06/17/22 22:48 Spherocytes Not Reportable 06/17/22 22:48 Pappenheimer Bodies Not Reportable 06/17/22 22:48 Sickle Cells Not Reportable 06/17/22 22:48 Target Cells Not Reportable 06/17/22 22:48 Tear Drop Cells Not Reportable 06/17/22 22:48 Ovalocytes Not Reportable 06/17/22 22:48 Helmet Cells Not Reportable 06/17/22 22:48 [place] Bodies Not Reportable 06/17/22 22:48 [place] Rings Not Reportable 06/17/22 22:48 [place] Cells Not Reportable 06/17/22 22:48 Bite Cells Not Reportable 06/17/22 22:48 Crenated Cell Not Reportable 06/17/22 22:48 Elliptocytes Not Reportable 06/17/22 22:48 Acanthocytes (Spur) Not Reportable 06/17/22 22:48 Rouleaux Not Reportable 06/17/22 22:48 Hemoglobin C Crystals Not Reportable 06/17/22 22:48 Schistocytes Not Reportable 06/17/22 22:48 Malaria parasites Not Reportable 06/17/22 22:48 Ck Bodies Not Reportable 06/17/22 22:48 Hem Pathologist Commnt No 06/17/22 22:48 PT 12.9 Sec. (12.2-14.9) 06/19/22 00:01 INR 0.88 (0.87-1.13) 06/19/22 00:01 APTT 28.4 Sec. (24.2-36.6) 06/17/22 22:48 Fibrinogen 387 mg/dl (211-480) 06/19/22 00:01 D-Dimer 7013.41 ng/mlDDU (0-234) H 06/17/22 17:40 Sodium 136 mmol/L (137-145) L 06/19/22 04:08 Potassium 4.0 mmol/L (3.6-5.0) 06/19/22 04:08 Chloride 105.1 mmol/L (98-107) 06/19/22 04:08 Carbon Dioxide 21 mmol/L (22-30) L 06/19/22 04:08 Anion Gap 14 mmol/L 06/19/22 04:08 BUN 6 mg/dL (7-17) L 06/19/22 04:08 Creatinine 0.8 mg/dL (0.6-1.2) 06/19/22 04:08 Estimated GFR > 60 ml/min 06/19/22 04:08 BUN/Creatinine Ratio 8 % 06/19/22 04:08 Glucose 87 mg/dL (65-100) 06/19/22 04:08 Calcium 7.9 mg/dL (8.4-10.2) L 06/19/22 04:08 Total Bilirubin 0.20 mg/dL (0.1-1.2) 06/18/22 05:58 AST 27 units/L (5-40) 06/18/22 05:58 ALT 8 units/L (7-56) 06/18/22 05:58 Alkaline Phosphatase 61 units/L (35-129) 06/18/22 05:58 Total Protein 4.4 g/dL (6.3-8.2) L 06/18/22 05:58 Albumin 2.8 g/dL (3.9-5) L 06/18/22 05:58 Albumin/Globulin Ratio 1.8 % 06/18/22 05:58 Urine Color Straw (Yellow) 06/17/22 12:10 Urine Turbidity Clear (Clear) 06/17/22 12:10 Urine pH 8.0 (5.0-7.0) H 06/17/22 12:10 Ur Specific [place] 1.005 (1.003-1.030) 06/17/22 12:10 Urine Protein <15 mg/dl mg/dL (Negative) 06/17/22 12:10 Urine Glucose (UA) Negative mg/dL (Negative) 06/17/22 12:10 Urine Ketones Negative mg/dL (Negative) 06/17/22 12:10 Urine Blood Trace (Negative) 06/17/22 12:10 Urine Nitrite Negative (Negative) 06/17/22 12:10 Ur Reducing Substances Not Reportable 06/17/22 12:10 Urine Bilirubin Negative (Negative) 06/17/22 12:10 Urine Ictotest Not Reportable 06/17/22 12:10 Urine Urobilinogen < 2.0 mg/dL (<2.0) 06/17/22 12:10 Ur Leukocyte Esterase Small (Negative) 06/17/22 12:10 Urine WBC (Auto) 14.0 /HPF (0.0-6.0) H 06/17/22 12:10 Urine RBC (Auto) 5.0 /HPF (0.0-6.0) 06/17/22 12:10 U Epithel Cells (Auto) 15.0 /HPF (0-13.0) H 06/17/22 12:10 Urine Bacteria (Auto) 1+ /HPF (Negative) 06/17/22 12:10 Hyaline Casts 1 /LPF 06/17/22 12:10 Urine Mucus Few /HPF 06/17/22 12:10 Urine Opiates Screen Negative 06/17/22 12:09 Urine Methadone Screen Negative 06/17/22 12:09 Ur Barbiturates Screen Negative 06/17/22 12:09 Ur Phencyclidine Scrn Negative 06/17/22 12:09 Ur Amphetamines Screen Negative 06/17/22 12:09 U Benzodiazepines Scrn Negative 06/17/22 12:09 Urine Cocaine Screen Negative 06/17/22 12:09 U Marijuana (THC) Screen Negative 06/17/22 12:09 Drugs of Abuse Note Disclamer 06/17/22 12:09 Syphilis IgG/IgM Ab Nonreactive (NonReactive) 06/17/22 12:10 SARS-CoV-2 (PCR) Negative (Negative) 06/17/22 11:40 Hep Bs Antigen Non-reactive (Negative) 06/17/22 12:10 Rubella IgG Antibody Immune (Immune) 06/17/22 12:10 Blood Type O POSITIVE 06/17/22 11:40 Antibody Screen Negative 06/17/22 11:40 Crossmatch See Detail 06/17/22 11:40 Microbiology: Microbiology 06/17/22 12:10 Urine,Clean Catch Urine Culture - Final NO GROWTH AFTER 48 HOURS [place]/IV: Voiding Method Indwelling Catheter Active Medications - Current Medications Current Medications: Generic Name Dose Route Start Last Admin Trade Name Freq PRN Reason Stop Dose Admin Acetaminophen 650 mg 06/17/22 19:17 06/19/22 12:12 Acetaminophen 325 Mg Tab PO 650 mg Q4H PRN Administration Pain MILD(1-3)/Fever >100.5/SMITH Hydrocodone Bitart/Acetaminophen 2 each 06/17/22 19:17 06/18/22 15:45 Hydrocodone/Acetaminophen 5-325 Mg Tab PO 2 each Q6H PRN Administration Pain, Moderate (4-6) Albuterol 2.5 mg 06/18/22 13:00 Albuterol 2.5 Mg/3 Ml Nebu IH Q4HRT PRN Shortness Of Breath Bisacodyl 10 mg 06/17/22 19:17 Bisacodyl 10 Mg Rect Supp OH BID PRN Constipation Carboprost Tromethamine 250 mcg 06/17/22 11:57 Carboprost Tromethamine 250 Mcg/1 Ml Inj IM ONCE PRN Uterine Bleeding Diphenhydramine HCl 25 mg 06/17/22 19:17 Diphenhydramine 25 Mg Cap PO Q6H PRN Itching Ephedrine Sulfate 10 mg 06/17/22 11:57 06/17/22 17:22 Ephedrine Sulfate 50 Mg/1 Ml Inj IV 10 mg Q2M PRN Administration Hypotension Hydromorphone HCl 0.5 mg 06/18/22 00:25 06/18/22 01:02 Hydromorphone 1 Mg/1 Ml Inj IV 0.5 mg Q2H PRN Administration Pain , Severe (7-10) Oxytocin/Sodium Chloride 30 units in 500 mls @ 2 mls/hr 06/17/22 12:00 Pitocin/Ns 30 Unit/500ml IV TITR KATHY Protocol Ketorolac Tromethamine 30 mg 06/17/22 19:17 Ketorolac 30 Mg/1 Ml Inj IV 06/22/22 19:16 Q6H PRN Pain, Moderate (4-6) Loperamide HCl 2 mg 06/17/22 11:57 Loperamide 2 Mg Cap PO ONCE PRN give with Hemabate Magnesium Hydroxide 30 ml 06/17/22 19:17 Magnesium Hydroxide (Mom) Oral Liqd Udc PO HS PRN Constipation Mineral Oil 30 ml 06/17/22 11:57 Mineral Oil 30 Ml Oral Liqd PO QHS PRN Constipation Multi-Ingredient Ointment 1 applic 06/17/22 19:17 Lanolin/Zinc/Dimethicone (Lansinoh) 7 Gm TP PRN PRN Sore Nipples Multivitamins/Iron/Calcium 1 each 06/19/22 11:00 06/19/22 12:12 [id number] Fumarate-Folic Acid Vit Tab PO 1 each QDAY KATHY Administration Ondansetron HCl 4 mg 06/18/22 00:44 Ondansetron 4 Mg/2 Ml Inj IV Q4H PRN Nausea And Vomiting Oxytocin 10 unit 06/17/22 11:57 Oxytocin 10 Unit/1 Ml Inj IM ONCE PRN Uterine Bleeding Promethazine HCl 25 mg 06/17/22 19:17 Promethazine 25 Mg Rect Supp OH Q6H PRN Nausea And Vomiting Promethazine HCl 25 mg 06/17/22 19:17 Promethazine 25 Mg Tab PO Q6H PRN Nausea And Vomiting Simethicone 80 mg 06/18/22 22:45 06/18/22 22:52 Simethicone 80 Mg Chew Tab PO 80 mg Q6H PRN Administration Gas pain Sodium Chloride 10 ml 06/17/22 20:00 Sodium Chloride 0.9% 10 Ml Flush Syringe IV 06/27/22 23:59 PRN NR Terbutaline Sulfate 0.25 mg 06/17/22 11:57 Terbutaline 1 Mg/1 Ml Inj SUB-Q ONCE PRN Hyperstimulation/Hypertonicity [place]/Glycerin 1 each 06/17/22 19:17 06/18/22 15:46 [place]/ Glycerin Pad TP 1 each PRN PRN Administration Hemorrhoid/cleansing/soothing
[2022-06-20 08:59] LABS: Basophils % (Auto) 0.3 % (0.0-1.8); Eosinophils # (Auto) 0.1 K/mm3 (0.0-0.4); Eosinophils % (Auto) 0.8 % (0.0-4.3); Hematocrit 23.2 % (30.3-42.9); Hemoglobin 8.1 gm/dl (10.1-14.3); Lymphocytes # (Auto) 2.7 K/mm3 (1.2-5.4); Lymphocytes % (Auto) 19.6 % (13.4-35.0); Mean Corpuscular HGB Conc 35 % (30-34); Mean Corpuscular Volume 85 fl (79-97); Monocytes # (Auto) 0.8 K/mm3 (0.0-0.8); Monocytes % (Auto) 5.7 % (0.0-7.3); Platelet Count 121 K/mm3 (140-440); Red Blood Count 2.72 M/mm3 (3.65-5.03); Red Cell Distribution Width 15.5 % (13.2-15.2)
[2022-06-20] MEDS: PRENATAL VIT27-FE FUMARATE-FOLIC ACID VIT TAB PO SCH (10:41)
--- NOTE | 2022-06-20 11:19 | Progress Note ---
Assessment and Plan - Patient Problems (1) with 39 completed weeks gestation Current Visit: Yes Status: Resolved (2) History of DVT (deep vein thrombosis) Current Visit: Yes Status: Chronic (3) Active labor Current Visit: Yes Status: Resolved (4) Status post vaginal delivery Current Visit: Yes Status: Acute Plan to address problem: Stable, in the ICU. Remains stable and ready for home. (5) hemorrhage Onset Date: 06/17/22 Current Visit: Yes Status: Resolved Qualifiers: hemorrhage type: third-stage Qualified Code(s): O72.0 - Third- stage hemorrhage Subjective - Subjective Date of service: 06/20/22 Principal diagnosis: Status post vaginal delivery & hemorrhage day 3 Interval history: Primigravida. care in the [facility]. DEACON 06/20/22. Vaginal deivery 06/17/22 was followed by a massive hemorrhage requiringthe activation of massive transfusion protocol. Bleeding finally brought under control with uterine arterial micro emboli. Spent the night in the ICU. 06/19/22 Stable. Alert. No active bleeding. Labs: Hb and Plts trending down. Last H 8.0. 06/20/22 Patient was stable, holding her baby. Had no complaints. Hb stable at approx 8. Discussed multivitamins and iron and where to get them. Also discussed f/u as outpatient. Patient reports: appetite normal, voiding normally, pain well controlled, ambulating normally : doing well, nursing well, bottle feeding Objective - Vital Signs Latest vital signs: Vital Signs Temp Pulse Pulse Resp BP BP BP 06/20/22 09:08 06/20/22 07:31 98.2 F 93 H 20 115/72 06/20/22 00:00 98.4 F 75 18 104/78 06/19/22 17:00 06/19/22 15:50 99.5 F 106 H 18 126/85 06/19/22 15:00 117 H 13 120/71 06/19/22 14:00 120 H 11 L 143/89 06/19/22 13:00 107 H 17 143/89 06/19/22 12:00 99.1 F 115 H 99 H 10 L 120/74 Pulse Ox Pulse Ox 06/20/22 09:08 99 06/20/22 07:31 99 06/20/22 00:00 06/19/22 17:00 98 07/28/22 15:50 99 06/19/22 15:00 100 06/19/22 14:00 100 06/19/22 13:00 99 06/19/22 12:00 100 Intake and Output 06/19/22 06/20/22 06/20/22 23:59 07:59 15:59 Intake Total 200 200 120 Output Total 800 Balance -600 200 120 Intake: Oral 200 120 Intake, Free Water 200 Output: Urine 800 Void 800 Other: Total, Intake Amount 200 120 Total, Output Amount 400 # Voids Void 1 1 1 - Exam Lungs: Present: Normal air movement Abdomen: Present: normal appearance, soft, normal bowel sounds Uterus: Present: normal, firm Extremities: Present: normal Deep Tendon Reflex Grade: Normal +2 - Labs Labs: Abnormal lab results 06/19/22 06/20/22 06/20/22 Range/Units 23:00 01:09 08:39 WBC 17.7 H 16.5 H 13.8 H (4.5-11.0) K/mm3 RBC 2.83 L 2.69 L 2.72 L (3.65-5.03) M/mm3 Hgb 8.3 L 8.0 L 8.1 L (10.1-14.3) gm/dl Hct 24.7 L 23.2 L 23.2 L (30.3-42.9) % MCHC 35 H (30-34) % RDW 15.9 H 15.7 H 15.5 H (13.2-15.2) % Plt Count 125 L 113 L 121 L (140-440) K/mm3 [place] # (Auto) 1.2 H 1.1 H (0.0-0.8) K/mm3 Seg Neutrophils % 71.3 H 70.7 H 73.6 H (40.0-70.0) % Seg Neutrophils # 12.6 H 11.7 H 10.1 H (1.8-7.7) K/mm3 Laboratory Tests 06/17/22 06/17/22 06/17/22 11:40 11:40 11:57 WBC 9.6 RBC 3.01 L Hgb 10.1 Hct 29.3 L MCV 97 MCH 34 H MCHC 35 H RDW 12.5 L Plt Count 155 Lymph % (Auto) 22.4 [place] % (Auto) 7.4 H Eos % (Auto) 0.2 Baso % (Auto) 0.3 Lymph # (Auto) 2.1 [place] # (Auto) 0.7 Eos # (Auto) 0.0 Baso # (Auto) 0.0 Add Manual Diff Total Counted Seg Neutrophils % 69.7 Seg Neuts % (Manual) Band Neutrophils % Lymphocytes % (Manual) Reactive Lymphs % (Man) Monocytes % (Manual) Eosinophils % (Manual) Basophils % (Manual) Metamyelocytes % Myelocytes % Promyelocytes % Blast Cells % Nucleated RBC % Seg Neutrophils # 6.7 Seg Neutrophils # Man Band Neutrophils # Lymphocytes # (Manual) Abs React Lymphs (Man) Monocytes # (Manual) Eosinophils # (Manual) Basophils # (Manual) Metamyelocytes # Myelocytes # Promyelocytes # Blast Cells # WBC Morphology Hypersegmented Neuts Hyposegmented Neuts Hypogranular Neuts Smudge Cells Toxic Granulation Toxic Vacuolation Dohle Bodies Pelger-Huet Anomaly Sage Rods Platelet Estimate Clumped Platelets Plt Clumps, EDTA Large Platelets Giant Platelets Platelet Satelliting Plt Morphology Comment RBC Morphology Dimorphic RBCs Polychromasia Hypochromasia Poikilocytosis Anisocytosis Microcytosis Macrocytosis Spherocytes Pappenheimer Bodies Sickle Cells Target Cells Tear Drop Cells Ovalocytes Helmet Cells [place] Bodies [place] Rings [place] Cells Bite Cells Crenated Cell Elliptocytes Acanthocytes (Spur) Rouleaux Hemoglobin C Crystals Schistocytes Malaria parasites Ck Bodies Hem Pathologist Commnt PT INR APTT Fibrinogen D-Dimer Sodium Potassium Chloride Carbon Dioxide Anion Gap BUN Creatinine Estimated GFR BUN/Creatinine Ratio Glucose Calcium Total Bilirubin AST ALT Alkaline Phosphatase Total Protein Albumin Albumin/Globulin Ratio Urine Color Urine Turbidity Urine pH Ur Specific [place] Urine Protein Urine Glucose (UA) Urine Ketones Urine Blood Urine Nitrite Ur Reducing Substances Urine Bilirubin Urine Ictotest Urine Urobilinogen Ur Leukocyte Esterase Urine WBC (Auto) Urine RBC (Auto) U Epithel Cells (Auto) Urine Bacteria (Auto) Hyaline Casts Urine Mucus Urine Opiates Screen Urine Methadone Screen Ur Barbiturates Screen Ur Phencyclidine Scrn Ur Amphetamines Screen U Benzodiazepines Scrn Urine Cocaine Screen U Marijuana (THC) Screen Drugs of Abuse Note Syphilis IgG/IgM Ab SARS-CoV-2 (PCR) Negative Hep Bs Antigen Rubella IgG Antibody Blood Type O POSITIVE Antibody Screen Negative Crossmatch See Detail 06/17/22 06/17/22 06/17/22 12:09 12:10 12:10 WBC RBC Hgb Hct MCV MCH MCHC RDW Plt Count Lymph % (Auto) [place] % (Auto) Eos % (Auto) Baso % (Auto) Lymph # (Auto) [place] # (Auto) Eos # (Auto) Baso # (Auto) Add Manual Diff Total Counted Seg Neutrophils % Seg Neuts % (Manual) Band Neutrophils % Lymphocytes % (Manual) Reactive Lymphs % (Man) Monocytes % (Manual) Eosinophils % (Manual) Basophils % (Manual) Metamyelocytes % Myelocytes % Promyelocytes % Blast Cells % Nucleated RBC % Seg Neutrophils # Seg Neutrophils # Man Band Neutrophils # Lymphocytes # (Manual) Abs React Lymphs (Man) Monocytes # (Manual) Eosinophils # (Manual) Basophils # (Manual) Metamyelocytes # Myelocytes # Promyelocytes # Blast Cells # WBC Morphology Hypersegmented Neuts Hyposegmented Neuts Hypogranular Neuts Smudge Cells Toxic Granulation Toxic Vacuolation Dohle Bodies Pelger-Huet Anomaly Sage Rods Platelet Estimate Clumped Platelets Plt Clumps, EDTA Large Platelets Giant Platelets Platelet Satelliting Plt Morphology Comment RBC Morphology Dimorphic RBCs Polychromasia Hypochromasia Poikilocytosis Anisocytosis Microcytosis Macrocytosis Spherocytes Pappenheimer Bodies Sickle Cells Target Cells Tear Drop Cells Ovalocytes Helmet Cells [place] Bodies [place] Rings [place] Cells Bite Cells Crenated Cell Elliptocytes Acanthocytes (Spur) Rouleaux Hemoglobin C Crystals Schistocytes Malaria parasites Ck Bodies Hem Pathologist Commnt PT INR APTT Fibrinogen D-Dimer Sodium Potassium Chloride Carbon Dioxide Anion Gap BUN Creatinine Estimated GFR BUN/Creatinine Ratio Glucose Calcium Total Bilirubin AST ALT Alkaline Phosphatase Total Protein Albumin Albumin/Globulin Ratio Urine Color Urine Turbidity Urine pH Ur Specific [place] Urine Protein Urine Glucose (UA) Urine Ketones Urine Blood Urine Nitrite Ur Reducing Substances Urine Bilirubin Urine Ictotest Urine Urobilinogen Ur Leukocyte Esterase Urine WBC (Auto) Urine RBC (Auto) U Epithel Cells (Auto) Urine Bacteria (Auto) Hyaline Casts Urine Mucus Urine Opiates Screen Negative Urine Methadone Screen Negative Ur Barbiturates Screen Negative Ur Phencyclidine Scrn Negative Ur Amphetamines Screen Negative U Benzodiazepines Scrn Negative Urine Cocaine Screen Negative U Marijuana (THC) Screen Negative Drugs of Abuse Note Disclamer Syphilis IgG/IgM Ab SARS-CoV-2 (PCR) Hep Bs Antigen Non-reactive Rubella IgG Antibody Immune Blood Type Antibody Screen Crossmatch 06/17/22 06/17/22 06/17/22 12:10 12:10 17:40 WBC RBC Hgb Hct MCV MCH MCHC RDW Plt Count Lymph % (Auto) [place] % (Auto) Eos % (Auto) Baso % (Auto) Lymph # (Auto) [place] # (Auto) Eos # (Auto) Baso # (Auto) Add Manual Diff Total Counted Seg Neutrophils % Seg Neuts % (Manual) Band Neutrophils % Lymphocytes % (Manual) Reactive Lymphs % (Man) Monocytes % (Manual) Eosinophils % (Manual) Basophils % (Manual) Metamyelocytes % Myelocytes % Promyelocytes % Blast Cells % Nucleated RBC % Seg Neutrophils # Seg Neutrophils # Man Band Neutrophils # Lymphocytes # (Manual) Abs React Lymphs (Man) Monocytes # (Manual) Eosinophils # (Manual) Basophils # (Manual) Metamyelocytes # Myelocytes # Promyelocytes # Blast Cells # WBC Morphology Hypersegmented Neuts Hyposegmented Neuts Hypogranular Neuts Smudge Cells Toxic Granulation Toxic Vacuolation Dohle Bodies Pelger-Huet Anomaly Sage Rods Platelet Estimate Clumped Platelets Plt Clumps, EDTA Large Platelets Giant Platelets Platelet Satelliting Plt Morphology Comment RBC Morphology Dimorphic RBCs Polychromasia Hypochromasia Poikilocytosis Anisocytosis Microcytosis Macrocytosis Spherocytes Pappenheimer Bodies Sickle Cells Target Cells Tear Drop Cells Ovalocytes Helmet Cells [place] Bodies [place] Rings [place] Cells Bite Cells Crenated Cell Elliptocytes Acanthocytes (Spur) Rouleaux Hemoglobin C Crystals Schistocytes Malaria parasites Ck Bodies Hem Pathologist Commnt PT 17.0 H INR 1.23 H APTT 28.3 Fibrinogen 150 L D-Dimer 7013.41 H Sodium Potassium Chloride Carbon Dioxide Anion Gap BUN Creatinine Estimated GFR BUN/Creatinine Ratio Glucose Calcium Total Bilirubin AST ALT Alkaline Phosphatase Total Protein Albumin Albumin/Globulin Ratio Urine Color Straw Urine Turbidity Clear Urine pH 8.0 H Ur Specific [place] 1.005 Urine Protein <15 mg/dl Urine Glucose (UA) Negative Urine Ketones Negative Urine Blood Trace Urine Nitrite Negative Ur Reducing Substances Not Reportable Urine Bilirubin Negative Urine Ictotest Not Reportable Urine Urobilinogen < 2.0 Ur Leukocyte Esterase Small Urine WBC (Auto) 14.0 H Urine RBC (Auto) 5.0 U Epithel Cells (Auto) 15.0 H Urine Bacteria (Auto) 1+ Hyaline Casts 1 Urine Mucus Few Urine Opiates Screen Urine Methadone Screen Ur Barbiturates Screen Ur Phencyclidine Scrn Ur Amphetamines Screen U Benzodiazepines Scrn Urine Cocaine Screen U Marijuana (THC) Screen Drugs of Abuse Note Syphilis IgG/IgM Ab Nonreactive SARS-CoV-2 (PCR) Hep Bs Antigen Rubella IgG Antibody Blood Type Antibody Screen Crossmatch 06/17/22 06/17/22 06/17/22 17:40 22:48 22:48 WBC 19.0 H RBC 4.84 Hgb 14.3 D Hct 42.5 D MCV 88 MCH 30 MCHC 34 RDW 16.4 H Plt Count 64 L Lymph % (Auto) [place] % (Auto) Eos % (Auto) Baso % (Auto) Lymph # (Auto) [place] # (Auto) Eos # (Auto) Baso # (Auto) Add Manual Diff Complete Total Counted 100 Seg Neutrophils % Seg Neuts % (Manual) 89.0 H Band Neutrophils % 4.0 Lymphocytes % (Manual) 3.0 L Reactive Lymphs % (Man) 0 Monocytes % (Manual) 2.0 Eosinophils % (Manual) 0 Basophils % (Manual) 0 Metamyelocytes % 2.0 Myelocytes % 0 Promyelocytes % 0 Blast Cells % 0 Nucleated RBC % Not Reportable Seg Neutrophils # Seg Neutrophils # Man 16.9 H Band Neutrophils # 0.8 Lymphocytes # (Manual) 0.6 L Abs React Lymphs (Man) 0.0 Monocytes # (Manual) 0.4 Eosinophils # (Manual) 0.0 Basophils # (Manual) 0.0 Metamyelocytes # 0.4 Myelocytes # 0.0 Promyelocytes # 0.0 Blast Cells # 0.0 WBC Morphology Not Reportable Hypersegmented Neuts Not Reportable Hyposegmented Neuts Not Reportable Hypogranular Neuts Not Reportable Smudge Cells Not Reportable Toxic Granulation Not Reportable Toxic Vacuolation Not Reportable Dohle Bodies Not Reportable Pelger-Huet Anomaly Not Reportable Sage Rods Not Reportable Platelet Estimate Appears decreased Clumped Platelets Not Reportable Plt Clumps, EDTA Not Reportable Large Platelets Not Reportable Giant Platelets Not Reportable Platelet Satelliting Not Reportable Plt Morphology Comment Not Reportable RBC Morphology Normal Dimorphic RBCs Not Reportable Polychromasia Not Reportable Hypochromasia Not Reportable Poikilocytosis Not Reportable Anisocytosis Not Reportable Microcytosis Not Reportable Macrocytosis Not Reportable Spherocytes Not Reportable Pappenheimer Bodies Not Reportable Sickle Cells Not Reportable Target Cells Not Reportable Tear Drop Cells Not Reportable Ovalocytes Not Reportable Helmet Cells Not Reportable [place] Bodies Not Reportable [place] Rings Not Reportable [place] Cells Not Reportable Bite Cells Not Reportable Crenated Cell Not Reportable Elliptocytes Not Reportable Acanthocytes (Spur) Not Reportable Rouleaux Not Reportable Hemoglobin C Crystals Not Reportable Schistocytes Not Reportable Malaria parasites Not Reportable Ck Bodies Not Reportable Hem Pathologist Commnt No PT 17.1 H INR 1.24 H APTT 28.4 Fibrinogen 135 L* D-Dimer Sodium 133 L Potassium 3.3 L Chloride 101.9 Carbon Dioxide 14 L Anion Gap 20 BUN 7 Creatinine 0.7 Estimated GFR > 60 BUN/Creatinine Ratio 10 Glucose 120 H Calcium 7.0 L Total Bilirubin < 0.20 AST 13 ALT < 5 L Alkaline Phosphatase 71 Total Protein 4.0 L Albumin 2.2 L Albumin/Globulin Ratio 1.2 Urine Color Urine Turbidity Urine pH Ur Specific [place] Urine Protein Urine Glucose (UA) Urine Ketones Urine Blood Urine Nitrite Ur Reducing Substances Urine Bilirubin Urine Ictotest Urine Urobilinogen Ur Leukocyte Esterase Urine WBC (Auto) Urine RBC (Auto) U Epithel Cells (Auto) Urine Bacteria (Auto) Hyaline Casts Urine Mucus Urine Opiates Screen Urine Methadone Screen Ur Barbiturates Screen Ur Phencyclidine Scrn Ur Amphetamines Screen U Benzodiazepines Scrn Urine Cocaine Screen U Marijuana (THC) Screen Drugs of Abuse Note Syphilis IgG/IgM Ab SARS-CoV-2 (PCR) Hep Bs Antigen Rubella IgG Antibody Blood Type Antibody Screen Crossmatch 06/17/22 06/17/22 06/18/22 22:48 Unknown 05:58 WBC 9.1 14.3 H RBC 1.73 L 3.91 Hgb 5.9 L* D 11.3 D Hct 17.5 L* D 34.4 D MCV 101 H 88 MCH 34 H 29 MCHC 33 33 RDW 12.6 L 15.9 H Plt Count 143 66 L Lymph % (Auto) 14.0 9.8 L [place] % (Auto) 3.8 5.9 Eos % (Auto) 0.0 0.0 Baso % (Auto) 0.2 0.2 Lymph # (Auto) 1.3 1.4 [place] # (Auto) 0.3 0.9 H Eos # (Auto) 0.0 0.0 Baso # (Auto) 0.0 0.0 Add Manual Diff Total Counted Seg Neutrophils % 82.0 H 84.1 H Seg Neuts % (Manual) Band Neutrophils % Lymphocytes % (Manual) Reactive Lymphs % (Man) Monocytes % (Manual) Eosinophils % (Manual) Basophils % (Manual) Metamyelocytes % Myelocytes % Promyelocytes % Blast Cells % Nucleated RBC % Seg Neutrophils # 7.5 12.0 H Seg Neutrophils # Man Band Neutrophils # Lymphocytes # (Manual) Abs React Lymphs (Man) Monocytes # (Manual) Eosinophils # (Manual) Basophils # (Manual) Metamyelocytes # Myelocytes # Promyelocytes # Blast Cells # WBC Morphology Hypersegmented Neuts Hyposegmented Neuts Hypogranular Neuts Smudge Cells Toxic Granulation Toxic Vacuolation Dohle Bodies Pelger-Huet Anomaly Sage Rods Platelet Estimate Clumped Platelets Plt Clumps, EDTA Large Platelets Giant Platelets Platelet Satelliting Plt Morphology Comment RBC Morphology Dimorphic RBCs Polychromasia Hypochromasia Poikilocytosis Anisocytosis Microcytosis Macrocytosis Spherocytes Pappenheimer Bodies Sickle Cells Target Cells Tear Drop Cells Ovalocytes Helmet Cells [place] Bodies [place] Rings [place] Cells Bite Cells Crenated Cell Elliptocytes Acanthocytes (Spur) Rouleaux Hemoglobin C Crystals Schistocytes Malaria parasites Ck Bodies Hem Pathologist Commnt PT INR APTT Fibrinogen D-Dimer Sodium 133 L Potassium 4.3 D Chloride 106.9 Carbon Dioxide 14 L Anion Gap 16 BUN 9 Creatinine 0.9 Estimated GFR > 60 BUN/Creatinine Ratio 10 Glucose 184 H Calcium 6.2 L Total Bilirubin 0.20 AST 21 ALT 6 L Alkaline Phosphatase 55 Total Protein 3.8 L Albumin 2.4 L Albumin/Globulin Ratio 1.7 Urine Color Urine Turbidity Urine pH Ur Specific [place] Urine Protein Urine Glucose (UA) Urine Ketones Urine Blood Urine Nitrite Ur Reducing Substances Urine Bilirubin Urine Ictotest Urine Urobilinogen Ur Leukocyte Esterase Urine WBC (Auto) Urine RBC (Auto) U Epithel Cells (Auto) Urine Bacteria (Auto) Hyaline Casts Urine Mucus Urine Opiates Screen Urine Methadone Screen Ur Barbiturates Screen Ur Phencyclidine Scrn Ur Amphetamines Screen U Benzodiazepines Scrn Urine Cocaine Screen U Marijuana (THC) Screen Drugs of Abuse Note Syphilis IgG/IgM Ab SARS-CoV-2 (PCR) Hep Bs Antigen Rubella IgG Antibody Blood Type Antibody Screen Crossmatch 06/18/22 06/18/22 06/18/22 05:58 05:58 12:54 WBC 12.7 H RBC 3.05 L Hgb 9.1 L Hct 26.6 L D MCV 87 MCH 30 MCHC 34 RDW 15.7 H Plt Count 67 L Lymph % (Auto) 16.3 [place] % (Auto) 10.1 H Eos % (Auto) 0.0 Baso % (Auto) 0.1 Lymph # (Auto) 2.1 [place] # (Auto) 1.3 H Eos # (Auto) 0.0 Baso # (Auto) 0.0 Add Manual Diff Total Counted Seg Neutrophils % 73.5 H Seg Neuts % (Manual) Band Neutrophils % Lymphocytes % (Manual) Reactive Lymphs % (Man) Monocytes % (Manual) Eosinophils % (Manual) Basophils % (Manual) Metamyelocytes % Myelocytes % Promyelocytes % Blast Cells % Nucleated RBC % Seg Neutrophils # 9.3 H Seg Neutrophils # Man Band Neutrophils # Lymphocytes # (Manual) Abs React Lymphs (Man) Monocytes # (Manual) Eosinophils # (Manual) Basophils # (Manual) Metamyelocytes # Myelocytes # Promyelocytes # Blast Cells # WBC Morphology Hypersegmented Neuts Hyposegmented Neuts Hypogranular Neuts Smudge Cells Toxic Granulation Toxic Vacuolation Dohle Bodies Pelger-Huet Anomaly Sage Rods Platelet Estimate Clumped Platelets Plt Clumps, EDTA Large Platelets Giant Platelets Platelet Satelliting Plt Morphology Comment RBC Morphology Dimorphic RBCs Polychromasia Hypochromasia Poikilocytosis Anisocytosis Microcytosis Macrocytosis Spherocytes Pappenheimer Bodies Sickle Cells Target Cells Tear Drop Cells Ovalocytes Helmet Cells [place] Bodies [place] Rings [place] Cells Bite Cells Crenated Cell Elliptocytes Acanthocytes (Spur) Rouleaux Hemoglobin C Crystals Schistocytes Malaria parasites Ck Bodies Hem Pathologist Commnt PT 14.8 INR 1.04 APTT Fibrinogen 381 D-Dimer Sodium 133 L Potassium 4.3 Chloride 104.8 Carbon Dioxide 19 L Anion Gap 14 BUN 8 Creatinine 1.0 Estimated GFR > 60 BUN/Creatinine Ratio 8 Glucose 113 H Calcium 7.0 L Total Bilirubin 0.20 AST 27 ALT 8 Alkaline Phosphatase 61 Total Protein 4.4 L Albumin 2.8 L Albumin/Globulin Ratio 1.8 Urine Color Urine Turbidity Urine pH Ur Specific [place] Urine Protein Urine Glucose (UA) Urine Ketones Urine Blood Urine Nitrite Ur Reducing Substances Urine Bilirubin Urine Ictotest Urine Urobilinogen Ur Leukocyte Esterase Urine WBC (Auto) Urine RBC (Auto) U Epithel Cells (Auto) Urine Bacteria (Auto) Hyaline Casts Urine Mucus Urine Opiates Screen Urine Methadone Screen Ur Barbiturates Screen Ur Phencyclidine Scrn Ur Amphetamines Screen U Benzodiazepines Scrn Urine Cocaine Screen U Marijuana (THC) Screen Drugs of Abuse Note Syphilis IgG/IgM Ab SARS-CoV-2 (PCR) Hep Bs Antigen Rubella IgG Antibody Blood Type Antibody Screen Crossmatch 06/18/22 06/19/22 06/19/22 12:54 00:01 00:01 WBC 14.6 H RBC 2.84 L Hgb 8.5 L Hct 24.3 L MCV 85 MCH 30 MCHC 35 H RDW 15.9 H Plt Count 70 L Lymph % (Auto) 14.0 [place] % (Auto) 7.9 H Eos % (Auto) 0.0 Baso % (Auto) 0.1 Lymph # (Auto) 2.0 [place] # (Auto) 1.1 H Eos # (Auto) 0.0 Baso # (Auto) 0.0 Add Manual Diff Total Counted Seg Neutrophils % 78.0 H Seg Neuts % (Manual) Band Neutrophils % Lymphocytes % (Manual) Reactive Lymphs % (Man) Monocytes % (Manual) Eosinophils % (Manual) Basophils % (Manual) Metamyelocytes % Myelocytes % Promyelocytes % Blast Cells % Nucleated RBC % Seg Neutrophils # 11.4 H Seg Neutrophils # Man Band Neutrophils # Lymphocytes # (Manual) Abs React Lymphs (Man) Monocytes # (Manual) Eosinophils # (Manual) Basophils # (Manual) Metamyelocytes # Myelocytes # Promyelocytes # Blast Cells # WBC Morphology Hypersegmented Neuts Hyposegmented Neuts Hypogranular Neuts Smudge Cells Toxic Granulation Toxic Vacuolation Dohle Bodies Pelger-Huet Anomaly Sage Rods Platelet Estimate Clumped Platelets Plt Clumps, EDTA Large Platelets Giant Platelets Platelet Satelliting Plt Morphology Comment RBC Morphology Dimorphic RBCs Polychromasia Hypochromasia Poikilocytosis Anisocytosis Microcytosis Macrocytosis Spherocytes Pappenheimer Bodies Sickle Cells Target Cells Tear Drop Cells Ovalocytes Helmet Cells [place] Bodies [place] Rings [place] Cells Bite Cells Crenated Cell Elliptocytes Acanthocytes (Spur) Rouleaux Hemoglobin C Crystals Schistocytes Malaria parasites Ck Bodies Hem Pathologist Commnt PT 14.3 12.9 INR 1.00 0.88 APTT Fibrinogen 375 387 D-Dimer Sodium Potassium Chloride Carbon Dioxide Anion Gap BUN Creatinine Estimated GFR BUN/Creatinine Ratio Glucose Calcium Total Bilirubin AST ALT Alkaline Phosphatase Total Protein Albumin Albumin/Globulin Ratio Urine Color Urine Turbidity Urine pH Ur Specific [place] Urine Protein Urine Glucose (UA) Urine Ketones Urine Blood Urine Nitrite Ur Reducing Substances Urine Bilirubin Urine Ictotest Urine Urobilinogen Ur Leukocyte Esterase Urine WBC (Auto) Urine RBC (Auto) U Epithel Cells (Auto) Urine Bacteria (Auto) Hyaline Casts Urine Mucus Urine Opiates Screen Urine Methadone Screen Ur Barbiturates Screen Ur Phencyclidine Scrn Ur Amphetamines Screen U Benzodiazepines Scrn Urine Cocaine Screen U Marijuana (THC) Screen Drugs of Abuse Note Syphilis IgG/IgM Ab SARS-CoV-2 (PCR) Hep Bs Antigen Rubella IgG Antibody Blood Type Antibody Screen Crossmatch 06/19/22 06/19/22 06/19/22 04:08 04:08 23:00 WBC 14.0 H 17.7 H RBC 2.70 L 2.83 L Hgb 8.0 L 8.3 L Hct 23.1 L 24.7 L MCV 85 87 MCH 30 29 MCHC 35 H 34 RDW 15.8 H 15.9 H Plt Count 74 L 125 L Lymph % (Auto) 21.8 [place] % (Auto) 6.6 Eos % (Auto) 0.2 Baso % (Auto) 0.1 Lymph # (Auto) 3.9 [place] # (Auto) 1.2 H Eos # (Auto) 0.0 Baso # (Auto) 0.0 Add Manual Diff Total Counted Seg Neutrophils % 71.3 H Seg Neuts % (Manual) Band Neutrophils % Lymphocytes % (Manual) Reactive Lymphs % (Man) Monocytes % (Manual) Eosinophils % (Manual) Basophils % (Manual) Metamyelocytes % Myelocytes % Promyelocytes % Blast Cells % Nucleated RBC % Seg Neutrophils # 12.6 H Seg Neutrophils # Man Band Neutrophils # Lymphocytes # (Manual) Abs React Lymphs (Man) Monocytes # (Manual) Eosinophils # (Manual) Basophils # (Manual) Metamyelocytes # Myelocytes # Promyelocytes # Blast Cells # WBC Morphology Hypersegmented Neuts Hyposegmented Neuts Hypogranular Neuts Smudge Cells Toxic Granulation Toxic Vacuolation Dohle Bodies Pelger-Huet Anomaly Sage Rods Platelet Estimate Clumped Platelets Plt Clumps, EDTA Large Platelets Giant Platelets Platelet Satelliting Plt Morphology Comment RBC Morphology Dimorphic RBCs Polychromasia Hypochromasia Poikilocytosis Anisocytosis Microcytosis Macrocytosis Spherocytes Pappenheimer Bodies Sickle Cells Target Cells Tear Drop Cells Ovalocytes Helmet Cells [place] Bodies [place] Rings [place] Cells Bite Cells Crenated Cell Elliptocytes Acanthocytes (Spur) Rouleaux Hemoglobin C Crystals Schistocytes Malaria parasites Ck Bodies Hem Pathologist Commnt PT INR APTT Fibrinogen D-Dimer Sodium 136 L Potassium 4.0 Chloride 105.1 Carbon Dioxide 21 L Anion Gap 14 BUN 6 L Creatinine 0.8 Estimated GFR > 60 BUN/Creatinine Ratio 8 Glucose 87 Calcium 7.9 L Total Bilirubin AST ALT Alkaline Phosphatase Total Protein Albumin Albumin/Globulin Ratio Urine Color Urine Turbidity Urine pH Ur Specific [place] Urine Protein Urine Glucose (UA) Urine Ketones Urine Blood Urine Nitrite Ur Reducing Substances Urine Bilirubin Urine Ictotest Urine Urobilinogen Ur Leukocyte Esterase Urine WBC (Auto) Urine RBC (Auto) U Epithel Cells (Auto) Urine Bacteria (Auto) Hyaline Casts Urine Mucus Urine Opiates Screen Urine Methadone Screen Ur Barbiturates Screen Ur Phencyclidine Scrn Ur Amphetamines Screen U Benzodiazepines Scrn Urine Cocaine Screen U Marijuana (THC) Screen Drugs of Abuse Note Syphilis IgG/IgM Ab SARS-CoV-2 (PCR) Hep Bs Antigen Rubella IgG Antibody Blood Type Antibody Screen Crossmatch 06/20/22 06/20/22 01:09 08:39 WBC 16.5 H 13.8 H RBC 2.69 L 2.72 L Hgb 8.0 L 8.1 L Hct 23.2 L 23.2 L MCV 86 85 MCH 30 30 MCHC 34 35 H RDW 15.7 H 15.5 H Plt Count 113 L 121 L Lymph % (Auto) 21.9 19.6 [place] % (Auto) 6.9 5.7 Eos % (Auto) 0.4 0.8 Baso % (Auto) 0.1 0.3 Lymph # (Auto) 3.6 2.7 [place] # (Auto) 1.1 H 0.8 Eos # (Auto) 0.1 0.1 Baso # (Auto) 0.0 0.0 Add Manual Diff Total Counted Seg Neutrophils % 70.7 H 73.6 H Seg Neuts % (Manual) Band Neutrophils % Lymphocytes % (Manual) Reactive Lymphs % (Man) Monocytes % (Manual) Eosinophils % (Manual) Basophils % (Manual) Metamyelocytes % Myelocytes % Promyelocytes % Blast Cells % Nucleated RBC % Seg Neutrophils # 11.7 H 10.1 H Seg Neutrophils # Man Band Neutrophils # Lymphocytes # (Manual) Abs React Lymphs (Man) Monocytes # (Manual) Eosinophils # (Manual) Basophils # (Manual) Metamyelocytes # Myelocytes # Promyelocytes # Blast Cells # WBC Morphology Hypersegmented Neuts Hyposegmented Neuts Hypogranular Neuts Smudge Cells Toxic Granulation Toxic Vacuolation Dohle Bodies Pelger-Huet Anomaly Sage Rods Platelet Estimate Clumped Platelets Plt Clumps, EDTA Large Platelets Giant Platelets Platelet Satelliting Plt Morphology Comment RBC Morphology Dimorphic RBCs Polychromasia Hypochromasia Poikilocytosis Anisocytosis Microcytosis Macrocytosis Spherocytes Pappenheimer Bodies Sickle Cells Target Cells Tear Drop Cells Ovalocytes Helmet Cells [place] Bodies [place] Rings [place] Cells Bite Cells Crenated Cell Elliptocytes Acanthocytes (Spur) Rouleaux Hemoglobin C Crystals Schistocytes Malaria parasites Ck Bodies Hem Pathologist Commnt PT INR APTT Fibrinogen D-Dimer Sodium Potassium Chloride Carbon Dioxide Anion Gap BUN Creatinine Estimated GFR BUN/Creatinine Ratio Glucose Calcium Total Bilirubin AST ALT Alkaline Phosphatase Total Protein Albumin Albumin/Globulin Ratio Urine Color Urine Turbidity Urine pH Ur Specific [place] Urine Protein Urine Glucose (UA) Urine Ketones Urine Blood Urine Nitrite Ur Reducing Substances Urine Bilirubin Urine Ictotest Urine Urobilinogen Ur Leukocyte Esterase Urine WBC (Auto) Urine RBC (Auto) U Epithel Cells (Auto) Urine Bacteria (Auto) Hyaline Casts Urine Mucus Urine Opiates Screen Urine Methadone Screen Ur Barbiturates Screen Ur Phencyclidine Scrn Ur Amphetamines Screen U Benzodiazepines Scrn Urine Cocaine Screen U Marijuana (THC) Screen Drugs of Abuse Note Syphilis IgG/IgM Ab SARS-CoV-2 (PCR) Hep Bs Antigen Rubella IgG Antibody Blood Type Antibody Screen Crossmatch
--- NOTE | 2022-06-20 11:26 | Discharge Summary ---
Providers - Providers Date of Admission: 06/17/22 11:57 Date of discharge: 06/20/22 Attending physician: LENARD VARGAS MD 06/17/22 22:43 Consult to Physician [CONS] Routine Comment: Consulting Provider: KERRI MARSH Physician Instructions: Reason For Exam: - hemorrhage 06/18/22 09:20 Consult to Physician [CONS] Routine Comment: noted/ tori Consulting Provider: SWATHI FERREIRA Physician Instructions: Reason For Exam: med management Primary care physician: LENARD VARGAS MD Hospitalization Reason for admission: active labor, IUP at term Delivery: Episiotomy: none Laceration: 2nd degree complications: transfusion, other ( hemorrhage) Discharge diagnosis: IUP at term delivered baby: female Condition at discharge: Good Disposition: 01 HOME / SELF CARE / HOMELESS - Discharge Diagnoses (1) with 39 completed weeks gestation Status: Resolved (2) History of DVT (deep vein thrombosis) Status: Chronic (3) Active labor Status: Resolved (4) Status post vaginal delivery Status: Acute (5) hemorrhage Status: Resolved Qualifiers: hemorrhage type: third-stage Qualified Code(s): O72.0 - Third- stage hemorrhage Plan - Provider Discharge Summary Activity: routine, no sex for 6 weeks, no heavy lifting 4 weeks, no strenuous exercise Diet: routine Instructions: routine (Obtain vitamins or multivitamins from otc. f/u in office in 2 wks.) Additional instructions: [] Smoking cessation referral if applicable(refer to patient education folder for contact #) [] Refer to [facility] Booklet Call your doctor immediately for: * Fever > 100.5 * Heavy vaginal bleeding ( >1 pad per hour) * Severe persistent headache * Shortness of breath * Reddened, hot, painful area to leg or breast * Drainage or odor from incision. * Keep incision clean and dry at all times and follow doctor's instructions regarding bathing/showering - Follow up plan Follow up: LENARD VARGAS MD [Primary Care Provider] - 7 Days
[2022-06-20 13:10] VITALS: BP 122/82
== END 2022-06-20 16:21 | disposition home or self-care (01) | DRG 768 ==
LOC: TRG 09:33 → APU 09:35 → LD 11:17 → TRG 12:18 → CC1 23:15 → OB 06-19 15:55
PROVIDERS: ADMIT Obstetrics & Gynecology; ATTEND Obstetrics & Gynecology
PROC: 0KQM0ZZ Repair Perineum Muscle, Open Approach (ICD-10-PCS; principal; 2022-06-17)
PROC: 10E0XZZ Delivery of Products of Conception, External Approach (ICD-10-PCS; 2022-06-17)
PROC: 0W3R7ZZ Control Bleeding in Genitourinary Tract, Via Natural or Artificial Opening (ICD-10-PCS; 2022-06-17)
PROC: 04LF3DU Occlusion of Left Uterine Artery with Intraluminal Device, Percutaneous Approach (ICD-10-PCS; 2022-06-17)
PROC: 04LF3DZ Occlusion of Left Internal Iliac Artery with Intraluminal Device, Percutaneous Approach (ICD-10-PCS; 2022-06-17)
PROC: B4101ZZ Fluoroscopy of Abdominal Aorta using Low Osmolar Contrast (ICD-10-PCS; 2022-06-17)
PROC: 30233N1 Transfusion of Nonautologous Red Blood Cells into Peripheral Vein, Percutaneous Approach (ICD-10-PCS; 2022-06-17)
PROC: 30233M1 Transfusion of Nonautologous Plasma Cryoprecipitate into Peripheral Vein, Percutaneous Approach (ICD-10-PCS; 2022-06-18)
DX: O99.52 Diseases of the respiratory system complicating childbirth (principal); Z37.0 Single live birth; Z3A.39 39 weeks gestation of pregnancy; O70.1 Second degree perineal laceration during delivery; J45.909 Unspecified asthma, uncomplicated; Z20.822 Contact with and (suspected) exposure to COVID-19; O72.2 Delayed and secondary postpartum hemorrhage; O90.81 Anemia of the puerperium; O72.3 Postpartum coagulation defects; D69.6 Thrombocytopenia, unspecified; O25.2 Malnutrition in childbirth
CPT/HCPCS: 36415; 37244; 80048; 80053; 80307; 81001; 85007; 85014; 85018; 85025; 85027; 85379; 85384; 85610; 85730; 86592; 86689; 86706; 86762; 86850; 86900; 86901; 86920; 86965; 87086; G0378; J1815; J3490; J7121; C1769; C1894; J0290; J0595; J0690; J1170; J1956; J2210; J2250; J2270; J2370; J2590; J2704; J3010; J7030; J7120; P9012; P9016; Q9967; U0003

== ENCOUNTER 2022-06-21 15:06 | Emergency (ER) | payer SELFPAY ==
[2022-06-21] MEDS ORDERED: MORPHINE 4 MG/1 ML INJ IV ONE (15:52)
[2022-06-21] MEDS ORDERED: ONDANSETRON 4 MG/2 ML INJ IV ONE (15:52)
--- NOTE | 2022-06-21 15:52 | Event Note ---
ED Screening Note ED Screening Note: 22-year-old female presents with shortness of breath chest pain generalized body aches since last night. Vaginal delivery on 06/17 requiring hospitalization in the ICU for blood transfusion monitoring. Discharge from the hospital yesterday 06/20/2022 General: Pale puny appearing Cardiac: Regular rate, normal heart sounds, chest pain Respiratory: Normal lung sounds bilaterally no use of behavioral school counselors muscles GI/-normal sounds, tender Musculoskeletal-tenderness Neuro-alert oriented x4. Dr Drummond In the setting of a significantly high volume and record number of patients presenting to the emergency department and the fact that we have a limited space to see patients we have implemented the provider in triage protocol this allows an expedited initial exam of patients that might otherwise have left without being seen or who would wait longer than usual to be seen by provider. I interviewed the patient and performed a limited physical exam. This patient is a pulled from the waiting room to triage room for an initial assessment of adrenal studies and then returned to the waiting room pending results of the studies. The ultimate final evaluation and disposition may be performed by another provider depending on room and provider availability.
--- NOTE | 2022-06-21 16:17 | XRay Report ---
CHEST 2 VIEWS INDICATION / CLINICAL INFORMATION: SOb, chest pain, 4 days post . FINDINGS: SUPPORT DEVICES: None. HEART / MEDIASTINUM: No significant abnormality. LUNGS / PLEURA: No significant pulmonary or pleural abnormality. No pneumothorax. ADDITIONAL FINDINGS: No significant additional findings. IMPRESSION: 1. No acute findings. Signer Name: Sam Roy MD Signed: 06/21/2022 4:13 PM Workstation Name: [id number]
[2022-06-21] MEDS ORDERED: LACTATED RINGERS 500 ML IV ONE (17:08)
--- NOTE | 2022-06-21 17:09 | Emergency Department Report ---
ED General Adult HPI - General Chief complaint: Pain General Stated complaint: Chest wall pain, lower abdominal pain, and back Time Seen by Provider: 06/21/22 16:40 Source: patient, RN notes reviewed, old records reviewed Mode of arrival: Stretcher Limitations: No Limitations, Other - History of Present Illness Initial comments: The patient was evaluated in the emergency department for symptoms described in the history of present illness. He/she was evaluated in the context of the global COVID-19 pandemic, which necessitated consideration that the patient might be at risk for infection with the virus that causes COVID-19. Institutional protocols and algorithms that pertain to the evaluation of patients at risk for COVID-19 are in a state of rapid change based on information released by regulatory bodies including the CDC and federal and stat e organizations. These policies and algorithms were followed during the patient's care in the emergency department. Please note that these policies, procedures and recommendations changed on a rapid basis. During the history and physical examination, I am chaperoned by nurse Dayan Licea. This is a 22-year-old female with a complex past medical history, including DVT, asthma, not currently on Lovenox who was recently admitted to the labor and delivery service/ICU, for hemorrhage. She was transfused 6 units of PRBC, 1 unit of cryoprecipitate, and was evaluated and treated by inte rventional radiology, with Gelfoam ligation of bilateral uterine arteries, left internal for dental artery, and anterior division of internal iliac artery. She remained in the ICU, and was ultimately discharged. She presents to the department today, and complaints today of lower abdominal cramping, lower back pain, and chest wall pain. Denies vomiting, and diaphoresis. Did not endorse vaginal bleeding to myself. Abdominal pain and back pain as well as chest wall pain are sharp and throbbing, and increased with palpation and decreased with rest. Chest wall pain present since yesterday, on the right side, does not radiate to the back, arms or neck -: Gradual, Sudden, days(s) Location: chest, back, abdomen Quality: other Consistency: other Improves with: other Worsens with: other - Related Data Home Medications Medication Instructions Recorded Confirmed Last Taken Enoxaparin [Lovenox] 60 mg SQ Q12HR 06/17/22 06/17/22 1 Month Ago ~05/18/22 Vit No.179/Iron/Folic 1 each PO DAILY 06/17/22 06/17/22 1 Month Ago [ Tablet] ~05/18/22 Previous Rx's Medication Instructions Recorded Last Taken Type Acetaminophen [Non-Aspirin Extra 500 mg PO Q6HR PRN #30 tablet 06/21/22 Unknown Rx Strength] Morphine Sulfate [Morphine Sulfate 7.5 mg PO Q6HR PRN #10 tablet 06/21/22 Unknown Rx IR] polyethylene glycoL 3350 [Miralax 17 gm PO BID #60 packet 06/21/22 Unknown Rx 3350] Allergies Allergy/AdvReac Type Severity Reaction Status Date / Time No Known Allergies Allergy Verified 06/17/22 12:15 ED Review of Systems ROS: Stated complaint: VAGINAL BLEEDING/CHEST PAIN Other details as noted in HPI Constitutional: denies: fever Eyes: denies: eye discharge ENT: denies: epistaxis Respiratory: denies: cough Cardiovascular: chest pain Gastrointestinal: abdominal pain Genitourinary: other (Intermittent vaginal bleeding although improved) Musculoskeletal: back pain Psychiatric: anxiety Hematological/Lymphatic: denies: easy bleeding ED Past Medical Hx - Past Medical History Previous Medical History?: Yes Hx Hypertension: No Hx Diabetes: No Hx Deep Vein Thrombosis: No Hx Renal Disease: No Hx Sickle Cell Disease: No Hx Seizures: No Hx Asthma: Yes (CHILDHOOD) Additional medical history: Vaginal delivery 06-21-2022 - Surgical History Past Surgical History?: No - Social History Smoking Status: Never Smoker - Medications Home Medications: Home Medications Medication Instructions Recorded Confirmed Last Taken Type Enoxaparin [Lovenox] 60 mg SQ Q12HR 06/17/22 06/17/22 1 Month Ago History ~05/18/22 Vit No.179/Iron/Folic 1 each PO DAILY 06/17/22 06/17/22 1 Month Ago History [ Tablet] ~05/18/22 Acetaminophen [Non-Aspirin Extra 500 mg PO Q6HR PRN #30 tablet 06/21/22 Unknown Rx Strength] Morphine Sulfate [Morphine Sulfate 7.5 mg PO Q6HR PRN #10 tablet 06/21/22 Unk nown Rx IR] polyethylene glycoL 3350 [Miralax 17 gm PO BID #60 packet 06/21/22 Unknown Rx 3350] ED Physical Exam - General General appearance: alert, anxious - Head Head exam: Present: atraumatic, normocephalic - Eye Eye exam: Present: normal appearance, EOMI. Absent: nystagmus - ENT ENT exam: Present: normal exam, normal orophraynx, mucous membranes moist, normal external ear exam - Neck Neck exam: Present: normal inspection, full ROM. Absent: tenderness, meningismus - Respiratory Respiratory exam: Present: normal lung sounds bilaterally, chest wall tenderness. Absent: respiratory distress, wheezes, rales, rhonchi, stridor - Cardiovascular Cardiovascular Exam: Present: regular rate, normal rhythm, normal heart sounds. Absent: bradycardia, tachycardia, irregular rhythm, systolic murmur, diastolic murmur, rubs, gallop - GI/Abdominal GI/Abdominal exam: Present: soft, tenderness, other (There is mild diffuse abdominal tenderness, without rebound, guarding or peritoneal). Absent: distended, guarding, rebound, rigid, pulsatile mass - Extremities Exam Extremities exam: Present: normal inspection, full ROM, pedal edema (There is 1+ edema in the bilateral lower extremity), other (2+ pulses noted in the bilateral upper and lower extremities. There is no palpable cord. negative Homans sign. Muscular compartments are soft. The pelvis is stable.). Absent: calf tenderness - Back Exam Back exam: Present: normal inspection, paraspinal tenderness. Absent: tenderness, CVA tenderness (R), CVA tenderness (L), muscle spasm, vertebral tenderness - Neurological Exam Neurological exam: Present: alert, oriented X3, other (No facial droop. Tongue midline. Extraocular movements intact bilaterally. Facial sensation intact to light touch in V1, V2, V3 distribution bilaterally. 5 and a 5 strength in 4 extremities. Sensation intact to light touch in 4 extremities.). Absent: motor sensory deficit - Psychiatric Psychiatric exam: Present: anxious - Skin Skin exam: Present: warm, dry, intact, normal color. Absent: rash - Other Other exam information: 2+ pulses noted in the bilateral radial, femoral, and dorsalis pedis distribution. ED Course Vital Signs 06/21/22 06/21/22 06/21/22 15:51 17:07 17:15 Temperature 99.1 F Pulse Rate 117 H 97 H 105 H Respiratory 18 22 11 L Rate Blood Pressure 126/76 137/91 136/85 Blood Pressure [Left] O2 Sat by Pulse 98 100 99 Oximetry 06/21/22 06/21/22 06/21/22 17:35 17:46 17:57 Temperature Pulse Rate 133 H 114 H 105 H Respiratory 31 H 20 18 Rate Blood Pressure 136/85 Blood Pressure 136/85 [Left] O2 Sat by Pulse 98 Oximetry 06/21/22 06/21/22 06/21/22 18:00 18:16 18:30 Temperature Pulse Rate 112 H 122 H 95 H Respiratory 17 22 15 Rate Blood Pressure 136/85 136/85 143/93 Blood Pressure [Left] O2 Sat by Pulse 100 Oximetry 06/21/22 06/21/22 06/21/22 18:45 19:10 19:16 Temperature Pulse Rate 97 H 107 H 123 H Respiratory 15 12 37 H Rate Blood Pressure 143/93 143/93 143/93 Blood Pressure [Left] O2 Sat by Pulse 100 98 Oximetry 06/21/22 06/21/22 19:30 19:45 Temperature Pulse Rate 97 H 97 H Respiratory 15 19 Rate Blood Pressure 155/99 135/90 Blood Pressure [Left] O2 Sat by Pulse 100 100 Oximetry - Reevaluation(s) Reevaluation #1: 06/21/22 17:17 Differential diagnosis, including but not limited to: Retained products of conception, postsurgical complications, uterus, chest wall pain, coronary artery disease, DVT, pulmonary embolism Assessment and plan: 22-year-old female with multiple complaints. In terms of the patient's chest pain, she is not currently tachycardic or hypoxic. However, she initially presented with a low-grade temperature, and was tachycardic. Given recent , recent delivery, known history of DVT, patient is not low risk by Wells criteria, and not low pretest probability for pulmonary embolism, and therefore, a D-dimer is not suitable to risk stratify this patient for pulmonary embolism. Patient is encouraged to pump breastmilk for her baby who is breast-feeding, nursing team to assist. We will treat her pain, and obtain a CT angiogram chest. In terms of the patient's abdominal pain, we will treat her pain, obtain appropriate laboratory studies, and obtain CT angiogram abdomen pelvis. We will also obtain a pelvic ultrasound. Patient denies irritative and obstructive urinary symptoms to myself. She is in agreement with the plan of care. All questions answered. Presuming troponin is negative x1, acute myocardial infarction is ruled out, and patient is at low risk for major adverse cardiac event as per heart score. 06/21/22 19:50 CT scan chest negative for acute findings. CT scan abdomen pelvis reviewed and appreciated. No obvious extravasation noted. Contacted vascular surgeon for this patient, with Dr. Callahan. Discussed the patient's history, physical, laboratory studies and imaging studies. He advises that CT angiogram findings are expected given her recent procedure, and that there is no emergent surgical intervention which is indicated. Ultrasound reviewed and appreciated. Contacted patient's choker hooker, Dr. Ridley Discussed the patient's history, physical, laboratory studies and imaging studies, and clinical impression. He advises that discharged with expectant management and outpatient follow-up will be reasonable. I discussed this with the patient extensively. She does not want narcotics at this time because she would like to breast-feed. Her choker hooker advises that she can follow-up in the office anytime this week. Heart rate now 102 bpm, blood pressure 130 systolic, patient endorsing significant improvement in symptoms. She may be discharged with expectant management and outpatient follow-up. Return precautions are reviewed. All questions answered Patient also asked me to speak to her aunt, and patient gave permission for the full details of her history, physical, and laboratory studies to be started. Aunt expressed concerned that patient has not had a bowel movement for couple days. As per discussion with the patient's choker hooker, the patient was essentially not eating for many days while here in the hospital, and that this is to be ex pected. He also advises that it is reasonable to discharge with expectant management, and he would expected patient to have a bowel movement within the next few days. I do appreciate fecal material in the Skin, so we can initiate MiraLAX to assist with having a bowel movement 06/21/22 19:58 06/21/22 20:17 ED Medical Decision Making - Lab Data Result diagrams: 06/21/22 16:44 06/21/22 16:44 Vital Signs 06/21/22 15:51 Temperature 99.1 F Pulse Rate 117 H Respiratory 18 Rate Blood Pressure 126/76 O2 Sat by Pulse 98 Oximetry - EKG Data -: EKG Interpreted by Me EKG shows normal: sinus rhythm Rate: normal - EKG Data 06/21/22 17:16 The EKG is interpreted at 17: 10 Sinus rhythm, 97 bpm. Normal axis, normal intervals, normal P wave axis, high left ventricular voltage. Abnormal EKG. Not a STEMI - Radiology Data Radiology results: pending, report reviewed, image reviewed CHEST 2 VIEWS INDICATION / CLINICAL INFORMATION: SOb, chest pain, 4 days post . FINDINGS: SUPPORT DEVICES: None. HEART / MEDIASTINUM: No significant abnormality. LUNGS / PLEURA: No significant pulmonary or pleural abnormality. No pneumothorax. ADDITIONAL FINDINGS: No significant additional findings. IMPRESSION: 1. No acute findings. Signer Name: Sam Roy MD Signed: 06/21/2022 3:13 PM Workstation Name: [id number] Pelvic ultrasound INDICATION: Pelvic pain TECHNIQUE: Real-time grayscale and Doppler imaging of the pelvis performed. FINDINGS: The uterus has a appearance and is mildly enlarged at 14 x 6 x 11 cm. Endometrial thickness is about 10 mm both ovaries appear unremarkable. IMPRESSION: uterus, grossly unremarkable. Signer Name: Sam Roy MD Signed: 06/21/2022 5:00 PM Workstation Name: [id number] CTA CHEST WITH CONTRAST INDICATION / CLINICAL INFORMATION: Acute chest pain, h istory of DVT. Recently . TECHNIQUE: Axial CT images were obtained through the chest after injection of 100 mL Omnipaque 350 IV contrast. 3 plane MIP and/or 3D reconstructions were produced. All CT scans at this location are performed using CT dose reduction for ALARA by means of automated exposure control. COMPARISON: None available. FINDINGS: PULMONARY EMBOLUS: None. THORACIC AORTA: No significant abnormality. HEART: No significant abnormality. CORONARY ARTERY CALCIFICATION: Absent -- None. MEDIASTINUM / BONNY: No significant abnormality. PLEURA: No pleural effusion. No pneumothorax. LUNGS: No acute air space or interstitial disease. ADDITIONAL FINDINGS: None. UPPER ABDOMEN: No acute findings. SKELETAL STRUCTURES: No significant osseous abnormality. IMPRESSION: 1. No CT evidence for pulmonary embolism. 2. No acute findings. Signer Name: Татьяна Post MD Signed: 06/21/2022 6:29 PM Workstation Name: [id number] CTA ABDOMEN AND PELVIS WITH CONTRAST INDICATION / CLINICAL INFORMATION: acute abd pain s/p IR procedure. Recently . TECHNIQUE: Axial CT images were obtained through the abdomen and pelvis before and after after injection of 100 mL Omnipaque 350 IV contrast. 3 plane MIP / 3D reconstructions were produced. All CT scans at this location are performed using CT dose reduction for ALARA by means of automated exposure control. COMPARISON: Ultrasound pelvis dated 06/21/22 FINDINGS: AORTA: No significant abnormality. RENAL ARTERIES: No significant abnormality. CELIAC ARTERY: No significant abnormality. SUPERIOR MESENTERIC ARTERY: No significant abnormality. INFERIOR MESENTERIC ARTERY: No significant abnormality. RIGHT ILIAC ARTERIES: No significant abnormality. LEFT ILIAC ARTERIES: No significant abnormality. No acute bleed. ADDITIONAL FINDINGS: Left pelvic soft tissue hematoma measuring 5.1 x 3.8 cm as seen on axial series 2 image 429. Uterus is enlarged with appearance. Small amount of increased density within the uterus may represent blood products due to state. Moderately distended urinary bladder with mild bilateral hydronephrosis.. SKELETAL: No significant abnormality. IMPRESSION: 1. Left pelvic soft tissue hematoma but no active bleeding. 2. Moderately distended urinary bladder with mild bilateral hydronephrosis. 3. Postoperative appearance of the uterus. Signer Name: Татьяна Post MD Signed: 06/21/2022 6:33 PM Workstation Name: [id number] Critical care attestation.: If time is entered above; I have spent that time in minutes in the direct care of this critically ill patient, excluding procedure time. ED Disposition Clinical Impression: Status post vaginal delivery, Chest wall pain, Acute abdominal pain, Normocytic anemia Disposition: 01 HOME / SELF CARE / HOMELESS Is pt being admited?: No Does the pt Need Aspirin: No Condition: Good Additional Instructions: Do not breast-feed for the next 24 hours. If taking the morphine sulfate for pain, do not breast-feed. Exercise caution when taking the morphine sulfate, because this medication can be addictive and habit-forming. Recommend follow-up with her outpatient choker hooker within the next 3 to 5 days. Please continue current outpatient medications. Please follow-up with your primary medical doctor or technical engineer within the next [address] Guerra is a local technical engineer. Rest, avoid heavy lifting and strenuous physical activities. Do not engage in sex or sexual activities until cleared to do so by your choker hooker. Please return to the emergency room right away with new pain, worsened pain, migration of pain, projectile vomiting, change in mental status, confusion, inability tolerate liquid feeds, new, worsened or different symptoms not present on the initial emergency room evaluation [facility] is a local medical clinic. Prescriptions: Morphine Sulfate [Morphine Sulfate IR] 7.5 mg PO Q6HR PRN #10 tablet PRN Reason: Pain , Severe (7-10) Acetaminophen [Non-Aspirin Extra Strength] 500 mg PO Q6HR PRN #30 tablet PRN Reason: Pain , Severe (7-10) Referrals: LENARD VARGAS MD [Staff Physician] - 3-5 Days EMILIANO GUERRA MD [Staff Physician] - 3-5 Days [facility] [Provider Group] - 3-5 Days Forms: Work/School Release Form(ED) Heart Score - HEART Score History: Slightly suspicious EKG: Non-specific Age: < 45 Risk factors: 1-2 risk factors Troponin: < normal limit HEART Score: 2 - EKG Read Time Time EKG Completed: 17:10 EKG Read Time: 17:15 - Critical Actions Critical Actions: 0-3 pts:0.9-1.7%risk of adverse cardiac event.Candidate for discharge
[2022-06-21 17:38] LABS: Basophils % (Auto) 0.1 % (0.0-1.8); Eosinophils # (Auto) 0.1 K/mm3 (0.0-0.4); Eosinophils % (Auto) 0.4 % (0.0-4.3); Hematocrit 25.2 % (30.3-42.9); Hemoglobin 8.7 gm/dl (10.1-14.3); Lymphocytes # (Auto) 2.5 K/mm3 (1.2-5.4); Lymphocytes % (Auto) 19.5 % (13.4-35.0); Mean Corpuscular HGB Conc 35 % (30-34); Mean Corpuscular Volume 87 fl (79-97); Monocytes # (Auto) 0.7 K/mm3 (0.0-0.8); Monocytes % (Auto) 5.3 % (0.0-7.3); Platelet Count 229 K/mm3 (140-440); Red Blood Count 2.88 M/mm3 (3.65-5.03); Red Cell Distribution Width 15.5 % (13.2-15.2)
[2022-06-21 17:56] LABS: Alanine Aminotransferase 30 units/L (7-56); Albumin 3.7 g/dL (3.9-5); Blood Urea Nitrogen 8 mg/dL (7-17); Calcium 8.5 mg/dL (8.4-10.2); Hemolysis Index 0
[2022-06-21 17:58] LABS: BUN/Creatinine Ratio 13
--- NOTE | 2022-06-21 18:05 | Ultrasound Report ---
Pelvic ultrasound INDICATION: Pelvic pain TECHNIQUE: Real-time grayscale and Doppler imaging of the pelvis performed. FINDINGS: The uterus has a appearance and is mildly enlarged at 14 x 6 x 11 cm. Endometria l thickness is about 10 mm both ovaries appear unremarkable. IMPRESSION: uterus, grossly unremarkable. Signer Name: Sam Roy MD Signed: 06/21/2022 6:00 PM Workstation Name: [id number]
--- NOTE | 2022-06-21 19:33 | Cat Scan Report ---
CTA CHEST WITH CONTRAST INDICATION / CLINICAL INFORMATION: Acute chest pain, history of DVT. Recently . TECHNIQUE: Axial CT images were obtained through the chest after injection of 100 mL Omnipaque 350 IV contrast. 3 plane MIP and/or 3D reconstructions were produced. All CT scans at this location are per formed using CT dose reduction for ALARA by means of automated exposure control. COMPARISON: None available. FINDINGS: PULMONARY EMBOLUS: None. THORACIC AORTA: No significant abnormality. HEART: No significant abnormality. CORONARY ARTERY CALCIFICATION: Absent -- None. MEDIASTINUM / BONNY: No significant abnormality. PLEURA: No pleural effusion. No pneumothorax. LUNGS: No acute air space or interstitial disease. ADDITIONAL FINDINGS: None. UPPER ABDOMEN: No acute findings. SKELETAL STRUCTURES: No significant osseous abnormality. IMPRESSION: 1. No CT evidence for pulmonary embolism. 2. No acute findings. Signer Name: Татьяна Post MD Signed: 06/21/2022 7:29 PM Workstation Name: [id number]
--- NOTE | 2022-06-21 19:38 | Cat Scan Report ---
CTA ABDOMEN AND PELVIS WITH CONTRAST INDICATION / CLINICAL INFORMATION: acute abd pain s/p IR procedure. Recently . TECHNIQUE: Axial CT images were obtained through the abdomen and pelvis before and after after inject ion of 100 mL Omnipaque 350 IV contrast. 3 plane MIP / 3D reconstructions were produced. All CT scans at this location are performed using CT dose reduction for ALARA by means of automated exposure cont rol. COMPARISON: Ultrasound pelvis dated 06/21/22 FINDINGS: AORTA: No significant abnormality. RENAL ARTERIES: No significant abnormality. CELIAC ARTERY: No significant abnormality. SUPERIOR MESENTERIC ARTERY: No significant abnormality. INFERIOR MESENTERIC ARTERY: No significant abnormality. RIGHT ILIAC ARTERIES: No significant abnormality. LEFT ILIAC ARTERIES: No significant abnormality. No acute bleed. ADDITIONAL FINDINGS: Left pelvic soft tissue hematoma measuring 5.1 x 3.8 cm as seen on axial series 2 image 429. Uterus is enlarged with appearance. Small amount of increased density within the uterus may represent blood products due to state. Moderately distended urinary bladder with mild bilateral hydronephrosis.. SKELETAL: No significant abnormality. IMPRESSION: 1. Left pelvic soft tissue hematoma but no active bleeding. 2. Moderately distended urinary bladder with mild bilateral hydronephrosis. 3. Postoperative appearance of the uterus. Signer Name: Татьяна Post MD Signed: 06/21/2022 7:33 PM Workstation Name: [id number]
[2022-06-21 21:01] VITALS: BP 130/93
--- NOTE | 2022-06-22 10:41 | Electrocardiograph Report ---
[facility] Test Date: 2022-06-21 Test Time: 17:10:02 Pat Name: ERICA PARNELL Department: Room: Gender: F [employer] Manager: TAMAR : 2000 Requested By: MACK NASH Order Number: [id number] Reading MD: Wilmar Martin Measurements Intervals [place] Rate: 97 P: 80 LA: 162 QRS: 66 QRSD: 81 T: 42 QT: 339 QTc: 431 Interpretive Statements Sinus rhythm No previous ECG available for comparison Electronically Signed On 06-22-2022 10:41:15 EDT by Wilmar Martin
== END 2022-06-21 21:02 | disposition home or self-care (01) ==
LOC: ED 15:06
DX: R07.89 Other chest pain (principal); R10.9 Unspecified abdominal pain; D64.9 Anemia, unspecified
CPT/HCPCS: 36415; 71046; 71275; 74174; 76856; 80053; 83690; 84484; 85025; 85379; 86900; 86901; 93005; 96374; 96375; 99284; J2270; J2405; J7120; Q9967